=== PATIENT | female | born 1960 | race Caucasian/White ===

== ENCOUNTER 2016-08-08 06:26 | Day surgery (SDC) | payer BC, OTHER ==
[2016-08-06 09:48] VITALS: BMI 25.8
[2016-08-08 06:37] VITALS: TEMP 98
[2016-08-08] MEDS ORDERED: LIDOCAINE 1% 20 ML VIAL (10MG/ML) FOR IV START INTRADERMA ONE (06:48)
[2016-08-08] MEDS ORDERED: LACTATED RINGERS 1,000 ML IV ONE (07:09)
[2016-08-08] MEDS ORDERED: TRIAMCINOLONE ACETONIDE 40 MG/ML 1 ML VIAL ONE (07:12)
[2016-08-08] MEDS ORDERED: IOHEXOL 180 MG/ML 1 ML ML ONE (07:12)
[2016-08-08] MEDS ORDERED: fentaNYL (PF) 50 MCG/ML 2 ML AMP ONE (07:12)
[2016-08-08] MEDS ORDERED: MIDAZOLAM 2 MG/2 ML VIAL ONE (07:12)
[2016-08-08] MEDS ORDERED: LACTATED RINGERS 1,000 ML IV SCH (07:30)
[2016-08-08] MEDS ORDERED: IV FLUID CONTINUATION 1,000 ML IV ONE (07:45)
--- NOTE | 2016-08-08 07:49 | FL ---
Fluoroscopy INDICATION: Pain FINDINGS: Fluoroscopy time: 10 seconds. Images obtained: 3. IMPRESSIONS: 1. Documentation of fluoroscopy.
[2016-08-08 08:12] VITALS: BP 128/68; PULSE 61; RESP 18
--- NOTE | 2016-08-08 09:02 | P.PCN ---
Date of Procedure: 08/08/16 Surgeon: Jamal Richmond Pathology: none sent Condition: stable Disposition: PACU Description of Procedure: PREOP DIAGNOSIS: Lumbar postlaminectomy syndrome POSTOP DIAGNOSIS: Lumbar postlaminectomy syndrome PROCEDURE: Caudal epidural steroid injection with epidurolysis and epidurogram under fluoroscopic guidance ANESTHESIA: Local with 1% lidocaine; conscious sedation EBL: Minimal. PROCEDURE INDICATION: The patient with post-laminectomy syndrome with low back pain and radiculopathy radiating down in both legs, here for a caudal epidural steroid injection with epidurolysis. Patient does not use any blood thinning medications. PROCEDURE DESCRIPTION: The patient was seen and identified in the preoperative area. Risks, benefits, complications, and alternatives were discussed with the patient including but not limited to bleeding, infection, nerve damage, incomplete pain relief, and allergic reactions to medications. The patient agreed to proceed with the procedure and signed the consent after all questions were answered. IV was started, and vital signs were stable. Patient was taken to the OR and time out was completed to verify proper patient , procedure, laterality of pain, and allergies. The patient was placed in the prone position on procedure table and a pillow was placed under the abdomen to reduce lumbar lordosis. The lumbosacral area was prepped and draped in the usual sterile fashion. Critical pause was taken. Vital signs were closely monitored during the procedure. Fluoroscopic camera was placed in the lateral view and the anterior-posterior plates of the sacrum were identified with infiltration of the area overlying the sacral hiatus with 1% lidocaine .A 16 gauge RK epidural needle was used to advance through the sacral hiatus into the caudal epidural space. Omnipaque 300 dye 2cc was injected and the position of the needle was verified to be in the midline. A Racz catheter was introduced into the epidural space and was advanced towards the L5-S1 interspace under direct fluoroscopic guidance. Multiple passes were made with the catheter for lysis of epidural adhesions. Kenalog 80mg with 3ml of preservative free Lidocaine 1% and 7 ml of preservative free normal saline was injected slowly. Additional spread was seen to L3 under fluoroscopy. The needle and the catheter were withdrawn intact. EPIDUROGRAM: Omnipaque 300 dye 2 ml was injected with spread of the dye into the caudal epidural space and with spread cutoff at L5 prior to epidurolysis. Post epidurolysis dye 2 ml was injected and spread was seen to bottom of L3 as noted. There was further spread of the solution together with the dye to this level as well. COMPLICATIONS: None. DISPOSITION / PLANS: The patient was placed in a supine position and transferred to the recovery area in a stable condition for observation and was discharged from the recovery room after meeting discharge criteria. Home discharge instructions given to the patient by the staff. The patient was reexamined prior to discharge. The patient will schedule a follow up procedure in 8 weeks. Of note, two months of prescriptions were given to the patient.
--- NOTE | 2016-08-11 04:43 | CDI ---
Dear Dr. Richmond, Per your procedure note, Conscious Sedation is documented. The Pain Prodecure Record, however, has MAC checked off under Antesthesia Plan. This is conflicting documentation that need clarification for proper reporting purposes. Please clarify if the anesthesia provided Shalini Valentine was MAC (Monitored Anesthesia Care) or Conscious/Moderate Sedation. Please document this clarification on an addendum to the procedure note. Thank you for your time, Meri Pena,[facility] Outpatient Drencher Roger nelson [employer] [email or web address]
== END 2016-08-08 08:42 | disposition home or self-care (01) ==
LOC: ORPAIN 06:26
PROVIDERS: ATTEND Anesthesiology
DX: M96.1 Postlaminectomy syndrome, not elsewhere classified (principal); G96.12 Meningeal adhesions (cerebral) (spinal); M54.16 Radiculopathy, lumbar region; Z79.891 Long term (current) use of opiate analgesic; Z79.899 Other long term (current) drug therapy; Z88.5 Allergy status to narcotic agent
CPT/HCPCS: 99152; 62264; J2250; J3301; Q9965; J3010

== ENCOUNTER 2016-10-03 06:23 | Day surgery (SDC) | payer BC, OTHER ==
[2016-10-02 08:35] VITALS: BMI 25.8
[2016-10-03 07:11] VITALS: RESP 18; TEMP 976
[2016-10-03] MEDS: LACTATED RINGERS 1,000 ML IV SCH ×2 (07:19→07:26)
[2016-10-03] MEDS ORDERED: LIDOCAINE 1% 20 ML VIAL (10MG/ML) FOR IV START INTRADERMA ONE (07:19)
[2016-10-03] MEDS ORDERED: MIDAZOLAM 2 MG/2 ML VIAL ONE (07:27)
[2016-10-03] MEDS ORDERED: TRIAMCINOLONE ACETONIDE 40 MG/ML 1 ML VIAL ONE (07:27)
[2016-10-03] MEDS ORDERED: IOHEXOL 180 MG/ML 1 ML ML ONE (07:27)
[2016-10-03] MEDS ORDERED: fentaNYL (PF) 50 MCG/ML 2 ML AMP ONE (07:27)
[2016-10-03] MEDS ORDERED: IV FLUID CONTINUATION 850 ML IV ONE (07:54)
[2016-10-03 08:15] VITALS: BP 109/82; PULSE 76
--- NOTE | 2016-10-03 08:57 | FL ---
Fluoroscopy INDICATION: Pain FINDINGS: Fluoroscopy time: 9 seconds. Images obtained: 4. IMPRESSIONS: 1. Documentation of fluoroscopy.
--- NOTE | 2016-10-03 13:22 | P.PCN ---
Date of Procedure: 10/03/16 Procedure(s) Performed: PREOP DIAGNOSIS: 1- Lumbar postlaminectomy syndrome POSTOP DIAGNOSIS:1- Lumbar postlaminectomy syndrome PROCEDURE: Caudal epidural steroid injection with epidurolysis and epidurogram under fluoroscopic guidance ANESTHESIA: Local with 1% lidocaine 3 ml ; IV sedation with Versed 3 mg and fentanyl 150 g EBL: Minimal. PROCEDURE INDICATION: The patient with post-laminectomy syndrome with low back pain and radiculopathy radiating down in both legs, here for a caudal epidural steroid injection with epidurolysis. PROCEDURE DESCRIPTION: The patient was seen and identified in the preoperative area. Risks, benefits, complications, and alternatives were discussed with the patient. The patient agreed to proceed with the procedure and signed the consent. IV was started, and vital signs were stable. Patient was taken to the OR and time out was completed. The patient was placed in the prone position on procedure table and a pillow was placed under the abdomen to reduce lumbar lordosis. The lumbosacral area was prepped and draped in the usual sterile fashion. Vital signs were closely monitored during the procedure. lateral view and the anterior-posterior plates of the sacrum were identified with infiltration of the area overlying the sacral hiatus with 1% lidocaine .A 17 gauge RK epidural needle was used to advance through the sacral hiatus into the caudal epidural space. Omnipaque 180 dye. 2cc was injected and the position of the needle was verified to be in the midline. A Racz catheter was introduced into the epidural space and was advanced towards the L5-S1 interspace under direct fluoroscopic guidance. Multiple passes were made with the catheter for lysis of epidural adhesions. Kenalog 80 mg with 3ml of preservative free Lidocaine 1% and 5 ml of preservative free normal saline was injected slowly. Additional spread was seen to L4 under fluoroscopy. The needle and the catheter were withdrawn intact. EPIDUROGRAM: Omnipaque 180 mg dye 2 ml was injected with spread of the dye into the caudal epidural space and with spread cutoff at L5 prior to epidurolysis. Post epidurolysis dye 2 ml was injected and spread was seen to L3- 4.There was further spread of the solution together with the dye above the L3 COMPLICATIONS: None. DISPOSITION / PLANS: The patient was placed in a supine position and transferred to the recovery area in a stable condition for observation and was discharged from the recovery room after meeting discharge criteria. Home discharge instructions given to the patient by the staff. The patient was reexamined prior to discharge. The patient will schedule a follow up in the clinic in 2-4 weeks.
== END 2016-10-03 08:35 | disposition home or self-care (01) ==
LOC: ORPAIN 06:23
PROVIDERS: ATTEND Specialist
DX: M96.1 Postlaminectomy syndrome, not elsewhere classified (principal); M54.10 Radiculopathy, site unspecified; Z78.0 Asymptomatic menopausal state; Z88.5 Allergy status to narcotic agent
CPT/HCPCS: 62264; 99152; J2250; J3301; Q9965; J3010

== ENCOUNTER → 2016-11-27 | Outpatient (CLI) | payer BC, OTHER ==
[2016-11-27 12:56] VITALS: BP 133/85; PULSE 84; RESP 16; TEMP 97.4
--- NOTE | 2016-11-27 13:15 | P.PN ---
Subjective Principal diagnosis: This is follow-up visit for this patient with a history of severe and chronic low back pain secondary to lumbar failed back surgery syndrome, we did interventional pain management injection,, caudal epidural steroid injections with lysis of epidural adhesions, and lyn get good pain relief from it. patient currently on 1-Neurontin 300 mg 3 times a day 2-[place] 5/325 every 6 hours 3-Flexeril 10 mg daily at bedtime Patient denies any side effects of the medication, denies excessive drowsiness or sleepiness, denies suicidal ideation, and reports that the current pain medication is helping To control the pain and improve activity of daily living . Patient denies any motor or sensory deficit, denies change in bowel movement or urination, patient denies any fever or night sweats and patient here for follow-up visit and medication refill, she reported that currently she is having more pain in the low back area with radiation to the left lower extremity associated with numbness and tingling sensation Objective - Vital Signs Vital signs: Vital Signs Temp 97.4 F L 11/27/16 12:49 Pulse 84 11/27/16 12:49 Resp 16 11/27/16 12:49 BP 133/85 11/27/16 12:49 Pulse Ox Intake & Output 11/26/16 11/27/16 11/27/16 18:59 06:59 18:59 Weight 81.647 kg - Exam Physical Examinations : 1-Constitutiona : Cooperative , not in acute distress . 2-HEENT : nech ; supple , no Lymphadenopathy , normal thyroid size . eyes : no ptosis , no icterus, no photophobia . ENT : normal of hearing , normal oropharynx , no Thrush . 3- Respiratory : Chest clear to auscultations Bilaterally , no wheezing , no Rhonchi . 4- Cardiovascular : regular rate and rhythem , S1 , S2 , no S3 , no S4. 5- Gastrointestinal : abdomen soft no tenderness , bowel sounds positive all four quadrents , no organomegally . 6- Genitourinary : Defferred . 7- neurologic : Cranial nerve II to XII intact , no focal neurological deffecit . 8-psychatric : alert , oriented X 3 , appropriate affect , intact judgment and insight . 9-Lymphatic : no Lymphadenopathy . 10- musculoskeltal : , Lumber spine = normal moter stegnth lower extremities ,thigh and legs .5/5 deep tendon reflexes : normal Knee Jerk , normal ankle Jerk . positive lumber facet Loading Test strait leg raising test positive at 30 degree , RT ,LT , Fabere test positive RT and positive LT . Assessment and Plan Plan: Assessment and plan = - Chronic low back pain secondary to , failed back surgery syndrome lumbar a -chronic and current use of high-risk medication (Opioids). -Patient denies any side effect of the medication, and the current medication helped the patient to control the pain and improve activity of daily living The patient was counseled about risk of opioid use, psychological risk associated with opioids discussed with the patient, body mass index and exercise. Patient signed the narcotic agreement , and was orally counseled not to overuse , abuse , divert, or sell medications ,and take them as prescribed only , and the patient was counseled against driving and while you are using the narcotic medication also not to use alcohol or any illicit drugs and the patient verbalized understanding that lack of compliance and could result in failure to renew narcotics prescriptions and possible discharge from the clinic - diagnoses, prognosis, and treatment options including but not limited to physical therapy, surgical interventions, interventional therapies and medication management including narcotics and adjuvant medication were discussed with the patient and all questions answered to the patient's satisfaction. -medication refile =1-B[place]e 5/325 every 6 hours dispense 120 with one refill 2-Neurontin 300 mg every 8 hours dispense 90 with 1 refill 3- Flexeril 10 mg daily at bedtime dispense 30 with one refill -procedure= problem epidural steroid injection with lysis of epidural adhesions under fluoroscopy guidance Time with Patient: Less than 30
== END ==
LOC: PNWHC3 12:40
PROVIDERS: ATTEND Specialist
DX: M54.5 Low back pain (principal); G89.29 Other chronic pain; Z79.891 Long term (current) use of opiate analgesic
CPT/HCPCS: 99211

== ENCOUNTER 2017-01-01 06:34 | Day surgery (SDC) | payer BC, OTHER ==
[2016-12-27 13:07] VITALS: BMI 25.8
[2017-01-01 07:00] VITALS: TEMP 97.6
[2017-01-01] MEDS ORDERED: LIDOCAINE 1% 20 ML VIAL (10MG/ML) FOR IV START INTRADERMA ONE (07:01)
[2017-01-01] MEDS ORDERED: LACTATED RINGERS 1,000 ML IV ONE (07:02)
[2017-01-01] MEDS ORDERED: IV FLUID CONTINUATION 1,000 ML IV ONE (07:42)
[2017-01-01 07:45] VITALS: RESP 16
[2017-01-01] MEDS ORDERED: LACTATED RINGERS 1,000 ML IV SCH (07:45)
[2017-01-01 08:00] VITALS: BP 129/78; PULSE 64
--- NOTE | 2017-01-01 08:09 | FL ---
Fluoroscopy HISTORY: Pain 3 seconds fluoroscopy time supplied to the referring clinician. 3 intraoperative C-arm images docume nt the procedure. See dictated report from anesthesia.
--- NOTE | 2017-01-01 10:16 | P.PCN ---
Date of Procedure: 01/01/17 Preoperative Diagnosis: Postoperative Diagnosis: Procedure(s) Performed: Implants: Surgeon: Jamal Richmond Pathology: none sent Condition: stable Disposition: PACU Indications for Procedure: Operative Findings: Description of Procedure: PREOP DIAGNOSIS: Lumbar postlaminectomy syndrome POSTOP DIAGNOSIS: Lumbar postlaminectomy syndrome PROCEDURE: Caudal epidural steroid injection with epidurolysis and epidurogram under fluoroscopic guidance ANESTHESIA: Local with 1% lidocaine; conscious sedation EBL: Minimal. PROCEDURE INDICATION: The patient with post-laminectomy syndrome with low back pain and radiculopathy radiating down in both legs, here for a caudal epidural steroid injection with epidurolysis, #3 in series. Patient does not use any blood thinning medications. PROCEDURE DESCRIPTION: The patient was seen and identified in the preoperative area. Risks, benefits, complications, and alternatives were discussed with the patient including but not limited to bleeding, infection, nerve damage, incomplete pain relief, and allergic reactions to medications. The patient agreed to proceed with the procedure and signed the consent after all questions were answered. IV was started, and vital signs were stable. Patient was taken to the OR and time out was completed to verify proper patient , procedure, laterality of pain, and allergies. The patient was placed in the prone position on procedure table and a pillow was placed under the abdomen to reduce lumbar lordosis. The lumbosacral area was prepped and draped in the usual sterile fashion. Critical pause was taken. Vital signs were closely monitored during the procedure. Fluoroscopic camera was placed in the lateral view and the anterior-posterior plates of the sacrum were identified with infiltration of the area overlying the sacral hiatus with 1% lidocaine .A 16 gauge RK epidural needle was used to advance through the sacral hiatus into the caudal epidural space. Omnipaque 300 dye 2cc was injected and the position of the needle was verified to be in the midline. A Racz catheter was introduced into the epidural space and was advanced towards the L5-S1 interspace under direct fluoroscopic guidance. Multiple passes were made with the catheter for lysis of epidural adhesions. Decadron 20 mg with 3ml of preservative free Lidocaine 1% and 7 ml of preservative free normal saline was injected slowly. Additional spread was seen to L4 under fluoroscopy. The needle and the catheter were withdrawn intact. EPIDUROGRAM: Omnipaque 300 dye 2 ml was injected with spread of the dye into the caudal epidural space and with spread cutoff at L5 prior to epidurolysis. Post epidurolysis dye 2 ml was injected and spread was seen to L4. There was further spread of the solution together with the dye above the L4 level. COMPLICATIONS: None. DISPOSITION / PLANS: The patient was placed in a supine position and transferred to the recovery area in a stable condition for observation and was discharged from the recovery room after meeting discharge criteria. Home discharge instructions given to the patient by the staff. The patient was reexamined prior to discharge. The patient will schedule a follow up in the clinic in 2-4 weeks as this was her third caudal SRAVAN with ZAIDA.
== END 2017-01-01 08:18 | disposition home or self-care (01) ==
LOC: ORPAIN 06:34
PROVIDERS: ATTEND Anesthesiology
DX: M96.1 Postlaminectomy syndrome, not elsewhere classified (principal); Z88.5 Allergy status to narcotic agent; Z79.891 Long term (current) use of opiate analgesic; Z79.899 Other long term (current) drug therapy
CPT/HCPCS: 62264; 99152; J2250; J1100; Q9965; J3010; C1894

== ENCOUNTER → 2017-01-22 | Outpatient (CLI) | payer BC, OTHER ==
[2017-01-22 13:25] VITALS: BP 142/86; PULSE 90; RESP 18; TEMP 98.3
--- NOTE | 2017-01-22 13:49 | P.PN ---
Progress Note - Text This is a 56-year-old female with history of failed back surgery syndrome. The patient had one back surgery in 2012 and says that she's been having lower back pain with radiation to the left lower extremity with numbness and tingling in no specific radicular distribution. The patient denies any bowel or bladder dysfunction or any weakness in the lower extremities. Her pain has been well- controlled with a combination of caudal epidural steroid injection with lysis of adhesions and [place] 5 mg 3 times a day plus Neurontin. The patient usually gets good relief of her pain from caudal epidurals with loss of adhesion I think we can schedule her for one of these procedures 2 months from now the patient can cancel the procedure if her pain is okay by that time. The patient is alert oriented 3 in no apparent distress she does not show any signs of oversedation or any drug-seeking behavior. She denies any suicidal or homicidal ideation.
== END | disposition home or self-care (01) ==
LOC: PNWHC3 13:01
PROVIDERS: ATTEND Anesthesiology
DX: M54.5 Low back pain (principal); R20.0 Anesthesia of skin; R20.2 Paresthesia of skin
CPT/HCPCS: 99211

== ENCOUNTER → 2017-04-07 | Outpatient (CLI) | payer BC, OTHER ==
[2017-04-07 12:06] VITALS: BP 155/93; PULSE 81; RESP 18
--- NOTE | 2017-04-07 12:25 | P.PN ---
Progress Note - Text Progress Note Date: 04/07/17 Patient returns for followup for chronic back pain with radiation to legs. Patient previously had RFAs with good relief. Patient continues on [place]/ Neurontin/Flexeril medications for pain with good relief. Patient denies adverse drug effects from medications. Today, pt denies new-onset weakness, bowel/bladder incontinence, or any other signs or symptoms of cauda equina syndrome. There are no signs of acute intoxication, and no indications of medication diversion or overuse. In addition to above, 13-point review of systems is also negative for chest pain , shortness of breath, changes in vision, changes in hearing, new onset weakness , abdominal pain, diarrhea, extreme fatigue, malaise, fever, skin changes, homicidal or suicidal ideation, or bowel or bladder incontinence. Vital Signs: Reviewed in EMR Gen: WDWN, AAOx3, NAD HEENT: NCAT, EOMI, hearing grossly normal Pulm: resp unlabored Abd: soft, NT, ND Neck: supple, trachea midline ROM in flexion lumbar spine: reduced ROM in extension lumbar spine: reduced Lumbar paravertebral tenderness: + Facet loading: + L side > R side SI joint tenderness: + L side Colby's test: neg Straight leg raise: neg Neuro: CN II-XII grossly intact, muscle strength lower extremities PRESERVED Imaging: Reviewed in EMR Assessment: 1. lumbar spondylosis 2. chronic pain syndrome 3. SIJ dysfunction Plan: 1. Explanation: Opioid and psychological risk scores were reviewed. Diagnoses , prognoses, and multiple treatment options including but not limited to physical therapy, interventional therapies, adjuvant medical therapies, narcotic medication therapies, and surgery were discussed with the patient and all questions were answered to the patient's satisfaction. 2. Opioid agreement: Patient has previously signed narcotic agreement, and was orally counseled to not overuse, abuse, divert, or cell medications, and to take them as prescribed by only 1 healthcare provider. The patient was also counseled to store opioid medications in a safe and preferably locked location. Patient was also counseled against driving or operating heavy equipment while using narcotic medications and also to not use alcohol or any illicit or recreational drugs. The patient verbalized understanding that lack of compliance with any of the above and likely result in failure to renew narcotic prescriptions, possible discharge from the clinic, and possible legal ramifications thereafter if indicated. 3. Counseling: The patient was counseled extensively on BODY MASS INDEX, EXERCISE. Specifically, the patient was instructed regarding the importance of weight control, and exercise in the context of both chronic pain and overall health. 4. Procedures: none for now 5. Consultations: None 6. Investigations: None 7. Medications: [place] 5/325 #90 with one refill, increased Neurontin to 400 mg #90 with one refill, refilled Flexeril 8. Disposition: f/u for re-eval in 8 weeks PQRS measures: 1-Patient's medications are documented in the chart. 2-Tobacco use is negative 3-Patient has not had a pneumococcal vaccine. 4-Advanced care planning discussed, patient unable to give. 5-Opioid contract signed with the patient. 6-Pain positive, follow-up visit or procedure scheduled 7-Patient's blood pressure measured and documented, and patient will follow up with the primary care due to hypertension. 8-Patient's weight was measured, and body mass index ABOVE the normal limits, and counseling was done. Patient instructed to follow up with PCP. 9-Patient WAS NOT identified as an unhealthy alcohol user.
[2017-04-08 15:07] LABS: Mis test requested (Non-blood) HEROIN
== END ==
LOC: PNWHC3 11:35
PROVIDERS: ATTEND Anesthesiology
DX: M47.816 Spondylosis without myelopathy or radiculopathy, lumbar region (principal); M53.3 Sacrococcygeal disorders, not elsewhere classified; Z79.899 Other long term (current) drug therapy; Z79.891 Long term (current) use of opiate analgesic
CPT/HCPCS: 80307; 80356; 80364; 99211

== ENCOUNTER → 2017-06-25 | Outpatient (CLI) | payer BC, OTHER ==
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
[2017-06-25 12:57] LABS: Appearance,Urine Cloudy (Clear); Bilirubin,Urine Negative (Negative); Blood,Urine Negative (Negative); Calcium Oxalate Crystals,Urine Many /hpf; Color,Urine Yellow; Glucose,Urine (UA) Negative (Negative); Ketones,Urine Negative (Negative); Leukocyte Esterase,Urine Negative (Negative); Mucus,Urine Rare /hpf; Nitrite,Urine Negative (Negative); PH, Urine 5.5 (5.0-8.0); Protein,Urine Negative (Negative); RBC,Urine 10 /hpf (0-5); Specific Gravity,Urine 1.021 (1.001-1.035); Squamous Epithelial Cell,Urine <1 /hpf (0-4); Urobilinogen,Urine <2.0 mg/dL (<2.0); WBC,Urine 2 /hpf (0-5)
== END | disposition home or self-care (01) ==
LOC: WWCWWP 07:52
PROVIDERS: ATTEND Obstetrics & Gynecology
DX: N81.10 Cystocele, unspecified (principal); Z98.51 Tubal ligation status
CPT/HCPCS: 81001; 87086

== ENCOUNTER → 2017-07-07 | Outpatient (CLI) | payer BC ==
[2017-07-07 16:20] LABS: Appearance,Urine Clear (Clear); Bacteria,Urine Rare /hpf; Bilirubin,Urine Negative (Negative); Blood,Urine Negative (Negative); Budding Yeast,Urine Few /hpf; Color,Urine Yellow; Glucose,Urine (UA) Negative (Negative); Ketones,Urine Negative (Negative); Leukocyte Esterase,Urine Small (Negative); Mucus,Urine Rare /hpf; Nitrite,Urine Negative (Negative); PH, Urine 6.5 (5.0-8.0); Protein,Urine Negative (Negative); RBC,Urine 1 /hpf (0-5); Squamous Epithelial Cell,Urine <1 /hpf (0-4); Urobilinogen,Urine <2.0 mg/dL (<2.0); WBC,Urine 4 /hpf (0-5)
--- NOTE | 2017-07-09 14:39 | MM ---
Reason for exam: screening (asymptomatic). Last mammogram was performed 2 years and 7 months ago. History: Patient has history of other cancer at age 53. Physical Findings: A clinical breast exam by your physician is recommended on an annual basis and results should be correlated with mammographic findings. MG Screening Mammo w CAD Bilateral CC and MLO view(s) were taken. Prior study comparison: November 22, 2014, bilateral MG screening mammo w CAD. September 22, 2012, mammogram, performed at [facility]. There are scattered fibroglandular densities. 6mm focal asymmetry upper outer quadrant at posterior depth on the right 9.5cm from nipple. ASSESSMENT: Incomplete: need additional imaging evaluation, BI-RAD 0 RECOMMENDATION: Special view mammogram of the right breast. If lesion persists on supplemental views, image directed ultrasound is recommended. [facility] will attempt to contact patient to return for supplemental views and ultrasound if indicated.
== END | disposition home or self-care (01) ==
LOC: RADMAMWWP 15:05
PROVIDERS: ATTEND Internal Medicine
DX: Z12.31 Encounter for screening mammogram for malignant neoplasm of breast (principal); R31.29 Other microscopic hematuria
CPT/HCPCS: 77067; 81001

== ENCOUNTER → 2017-07-15 | Outpatient (CLI) | payer BC ==
--- NOTE | 2017-07-16 07:30 | MM ---
Reason for exam: additional evaluation requested from abnormal screening. Last mammogram was performed less than 1 month ago. History: Patient has history of other cancer at age 53. Physical Findings: Nurse Summary: 0.5cm nodule in the right breast at 12 o'clock (nurse landen). MG Work Up Mamm w CAD RT Spot compression CC, spot compression MLO, and LM view(s) were taken of the right breast. Prior study comparison: July 07, 2017, bilateral MG screening mammo w CAD. November 22, 2014, bilateral MG screening mammo w CAD. There are scattered fibroglandular densities. No suspicious abnormality. The previously seen focal asymmetry in the upper outer quadrant appears similar to priors retrospectively and appears as fibroglandular tissue/overlap. (Ultrasound today right breast palpable) These results were verbally communicated with the patient and result sheet given to the patient on 07/15/17. ASSESSMENT: Negative, BI-RAD 1 RECOMMENDATION: Return to routine screening mammogram schedule for both breasts.
--- NOTE | 2017-07-16 07:32 | USB ---
Reason for exam: additional evaluation requested from abnormal screening. History: Patient has history of other cancer at age 53. US Breast Workup Limited RT Right breast ultrasound demonstrates no cystic or solid lesion seen. No suspicious sonographic finding. These results were verbally communicated with the patient and result sheet given to the patient on 07/15/17. ASSESSMENT: Negative, BI-RAD 1 RECOMMENDATION: Return to routine screening mammogram schedule for both breasts.
== END | disposition home or self-care (01) ==
LOC: RADMAMWWP 15:23
PROVIDERS: ATTEND Internal Medicine
DX: R92.8 Other abnormal and inconclusive findings on diagnostic imaging of breast (principal)
CPT/HCPCS: 77065

== ENCOUNTER 2017-07-17 08:24 | Day surgery (SDC) | payer BC, OTHER ==
[2017-07-11 08:32] VITALS: BMI 25.8
[2017-07-17 08:42] VITALS: RESP 16; TEMP 97.8
[2017-07-17] MEDS ORDERED: LACTATED RINGERS 1,000 ML IV ONE (08:42)
[2017-07-17] MEDS ORDERED: LIDOCAINE 1% 20 ML VIAL (10MG/ML) FOR IV START INTRADERMA ONE (08:42)
[2017-07-17] MEDS ORDERED: methylPREDNISolone ACETATE 40 MG/ML 1 ML VIAL ONE (09:20)
[2017-07-17] MEDS ORDERED: IV FLUID CONTINUATION 1,000 ML IV ONE (09:50)
[2017-07-17 10:05] VITALS: BP 130/69; PULSE 91
--- NOTE | 2017-07-17 10:17 | FL ---
EXAMINATION TYPE: FL guided pain mgmt statistic DATE OF EXAM: 07/17/2017 HISTORY: Pain 8 sec fluoro, 4 images scanned, Dr. Richmond
--- NOTE | 2017-07-17 11:03 | P.PCN ---
Date of Procedure: 07/17/17 Surgeon: Jamal Richmond Pathology: none sent Condition: stable Disposition: PACU Description of Procedure: PREOP DIAGNOSIS: Lumbar postlaminectomy syndrome POSTOP DIAGNOSIS: Lumbar postlaminectomy syndrome PROCEDURE: Caudal epidural steroid injection with epidurolysis and epidurogram under fluoroscopic guidance ANESTHESIA: Local with 1% lidocaine; conscious sedation EBL: Minimal. PROCEDURE INDICATION: The patient with post-laminectomy syndrome with low back pain and radiculopathy radiating down in both legs, here for a caudal epidural steroid injection with epidurolysis after relief from these procedures in the past. Patient does not use any blood thinning medications. PROCEDURE DESCRIPTION: The patient was seen and identified in the preoperative area. Risks, benefits, complications, and alternatives were discussed with the patient including but not limited to bleeding, infection, nerve damage, incomplete pain relief, and allergic reactions to medications. The patient agreed to proceed with the procedure and signed the consent after all questions were answered. IV was started, and vital signs were stable. Patient was taken to the OR and time out was completed to verify proper patient , procedure, laterality of pain, and allergies. The patient was placed in the prone position on procedure table and a pillow was placed under the abdomen to reduce lumbar lordosis. The lumbosacral area was prepped and draped in the usual sterile fashion. Critical pause was taken. Vital signs were closely monitored during the procedure. Fluoroscopic camera was placed in the lateral view and the anterior-posterior plates of the sacrum were identified with infiltration of the area overlying the sacral hiatus with 1% lidocaine .A 16 gauge RK epidural needle was used to advance through the sacral hiatus into the caudal epidural space. Omnipaque 300 dye 2cc was injected and the position of the needle was verified to be in the midline. A Racz catheter was introduced into the epidural space and was advanced towards the L5-S1 interspace under direct fluoroscopic guidance. Multiple passes were made with the catheter for lysis of epidural adhesions. Kenalog 80mg with 3ml of preservative free Lidocaine 1% and 7 ml of preservative free normal saline was injected slowly. Additional spread was seen to L2 under fluoroscopy. The needle and the catheter were withdrawn intact. EPIDUROGRAM: Omnipaque 300 dye 2 ml was injected with spread of the dye into the caudal epidural space and with spread cutoff at L4 prior to epidurolysis. Post epidurolysis dye 2 ml was injected and spread was seen to bottom of L2 as noted. There was further spread of the solution together with the dye to this level as well. COMPLICATIONS: None. DISPOSITION / PLANS: The patient was placed in a supine position and transferred to the recovery area in a stable condition for observation and was discharged from the recovery room after meeting discharge criteria. Home discharge instructions given to the patient by the staff. The patient was reexamined prior to discharge. The patient will follow up in clinic in 2-3 weeks.
== END 2017-07-17 10:20 | disposition home or self-care (01) ==
LOC: ORPAIN 08:24
PROVIDERS: ATTEND Anesthesiology
DX: M96.1 Postlaminectomy syndrome, not elsewhere classified (principal); Z88.5 Allergy status to narcotic agent
CPT/HCPCS: 62264; J2250; J1030; Q9965; J3010; C1894; 99152

== ENCOUNTER → 2017-07-28 | Outpatient (CLI) | payer BC, OTHER ==
[2017-07-28 12:31] VITALS: BP 138/84; PULSE 95; RESP 16; TEMP 97.9
--- NOTE | 2017-07-28 12:50 | P.PN ---
Subjective Progress Note Date: 07/28/17 This is follow-up visit for this patient with a history of severe and chronic low back pain secondary to lumbar postlaminectomy pain syndrome, we have done caudal epidural steroid injections, Patients report that she had excellent relief after the caudal epidural steroid injections and she is currently on Neurontin 400 mg 3 times a day, Flexeril 10 mg daily at bedtime when necessary, [place] 5/325 every 8 hours Patient denies any side effects of the medication, denies excessive drowsiness or sleepiness, denies suicidal ideation, and reports that the current pain medication is helping To control the pain ,and improve activity of daily living Patient denies any motor or sensory deficit , patient denies any fever or night sweats, denies any change in the bowel movements or urination Assessment and plan = Chronic low back pain secondary to lumbar postlaminectomy pain syndrome , pain improved significantly after caudal epidural steroid injections chronic and current use of high-risk medication (Opioids). The patient was counseled about risk of opioid use, psychological risk associated with opioids and was orally counseled to not overuse , divert,or sell dictations to take medications as prescribed only , and to restore medication in safe location , and the patient counseled against driving while using narcotic medications, and also not to use alcohol or any illicit recreational drugs, the patient's verbalized understanding that the lack of compliance will result in failure to renew narcotic prescription and possible discharge from the clinic - diagnoses, prognosis, and treatment options including but not limited to physical therapy, surgical interventions, interventional therapies , and medication management including narcotics and adjuvant medication were discussed with the patient and all the questions answered prescription refill for Neurontin 400 mg 3 times a day dispense 90 with 5 refill, Flexeril 10 mg daily at bedtime dispensed 30 with 5 refills, [place] 5/ 325 every 8 hours when necessary dispense 90 with 1 refill ,she will follow up with the pain clinic in 2 months Objective - Vital Signs Vital signs: Vital Signs Temp 97.9 F 07/28/17 12:26 Pulse 95 07/28/17 12:26 Resp 16 07/28/17 12:26 BP 138/84 07/28/17 12:26 Pulse Ox Intake & Output 07/27/17 07/28/17 07/28/17 18:59 06:59 18:59 Weight 81.647 kg
== END | disposition home or self-care (01) ==
LOC: PNWHC3 12:10
PROVIDERS: ATTEND Specialist
DX: G89.29 Other chronic pain (principal); M54.5 Low back pain; M96.1 Postlaminectomy syndrome, not elsewhere classified; Z79.52 Long term (current) use of systemic steroids; Z79.899 Other long term (current) drug therapy; Z79.891 Long term (current) use of opiate analgesic; Z76.0 Encounter for issue of repeat prescription
CPT/HCPCS: 99211

== ENCOUNTER → 2017-09-17 | Outpatient (CLI) | payer BC, OTHER ==
[2017-09-17 12:13] VITALS: BP 158/81; PULSE 88; RESP 18; TEMP 98.2
--- NOTE | 2017-09-17 13:00 | P.PN ---
Subjective Progress Note Date: 09/17/17 This is follow-up visit for this patient with a history of severe and chronic low back pain secondary to lumbar postlaminectomy pain syndrome, we have done, epidural lysis of epidural adhesions , patient currently on [place] 5/325 every 6 hours when necessary. , Neurontin 400 3 times a day , Flexeril 10 mg when necessary Patient denies any side effects of the medication, denies excessive drowsiness or sleepiness, denies suicidal ideation, and reports that the current pain medication is NOT helping To control the pain and improve activity of daily living . Patient denies any motor or sensory deficit, denies change in bowel movement or urination, patient denies any fever or night sweats and patient here for follow-up visit and medication refill Objective - Vital Signs Vital signs: Vital Signs Temp 98.2 F 09/17/17 12:03 Pulse 88 09/17/17 12:03 Resp 18 09/17/17 12:03 BP 158/81 09/17/17 12:03 Pulse Ox Intake & Output 09/16/17 09/17/17 09/17/17 18:59 06:59 18:59 Weight 81.647 kg - Exam Physical Examinations : 1-Constitutiona : Cooperative , not in acute distress . 2-HEENT : nech ; supple , no Lymphadenopathy , normal thyroid size . eyes : no ptosis , no icterus, no photophobia . ENT : normal of hearing , normal oropharynx , no Thrush . 3- Respiratory : Chest clear to auscultations Bilaterally , no wheezing , no Rhonchi . 4- Cardiovascular : regular rate and rhythem , S1 , S2 , no S3 , no S4. 5- Gastrointestinal : abdomen soft no tenderness , bowel sounds positive all four quadrents , no organomegally . 6- Genitourinary : Defferred . 7- neurologic : Cranial nerve II to XII intact , no focal neurological deffecit . 8-psychatric : alert , oriented X 3 , appropriate affect , intact judgment and insight . 9-Lymphatic : no Lymphadenopathy . 10- musculoskeltal : . , Lumber spine = normal moter stegnth lower extremities ,thigh and legs .5/5 deep tendon reflexes : normal Knee Jerk , normal ankle Jerk . 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 and current use of high-risk medication (opioids) Patient denies any side effects of the current pain medication and the current treatment/medication ,and the patient to do activity of daily living , Diagnoses, prognosis, treatment options, including but not limited to physical therapy, medication management, interventional therapies, and surgery, were discussed with the patient All the questions answered Patient signed the narcotic agreement, and he was orally counseled, not to overuse, not to abuse, not to Divert , not tp sell pain medication, and to take it as prescribed only, Patient was counseled not to drive or operate heavy equipment while using narcotic medication, and advised not to use alcohol or any Illicit drugs while using the narcotis, the patient's verbalized understanding that lack of compliance with any of the above instructions and will likely to cause discharge from the pain service, not to renew his narcotic prescriptions Medication managements= patient given e prescription refills for [place] 5/ 325 one tablet by mouth every 6 hours dispensed 90 with 1 refill, and she had a refill on Neurontin 400 mg 3 times a day dispense 90, and Flexeril 10 mg when necessary dispense 30 with refills she will be scheduled to have repeat caudal epidural steroid injection with lysis of epidural adhesions under fluoroscopy guidance , Time with Patient: Less than 30
== END | disposition home or self-care (01) ==
LOC: PNWHC3 11:38
PROVIDERS: ATTEND Specialist
DX: G89.29 Other chronic pain (principal); M54.5 Low back pain; M96.1 Postlaminectomy syndrome, not elsewhere classified; Z79.899 Other long term (current) drug therapy; Z79.891 Long term (current) use of opiate analgesic
CPT/HCPCS: 99211

== ENCOUNTER 2017-10-30 09:22 | Day surgery (SDC) | payer BC, OTHER ==
[2017-10-28 14:30] VITALS: BMI 25.8
[~2017-10-30 09:22] MED LIST: LACTATED RINGERS 1,000 ML IV SCH
[2017-10-30] MEDS ORDERED: LIDOCAINE 1% 20 ML VIAL (10MG/ML) FOR IV START INTRADERMA ONE (12:15)
[2017-10-30 12:28] VITALS: RESP 16; TEMP 98.1
--- NOTE | 2017-10-30 13:04 | P.PCN ---
Date of Procedure: 10/30/17 Procedure(s) Performed: PREOP DIAGNOSIS: 1- Lumbar postlaminectomy syndrome POSTOP DIAGNOSIS:1- Lumbar postlaminectomy syndrome PROCEDURE: Caudal epidural steroid injection with epidurolysis and epidurogram under fluoroscopic guidance ANESTHESIA: Local with 1% lidocaine 3 ml ,and moderate sedation, with Versed 2 mg and fentanyl 100 g EBL: Minimal. PROCEDURE INDICATION: The patient with post-laminectomy syndrome with low back pain and radiculopathy radiating down in both legs, here for a caudal epidural steroid injection with epidurolysis. PROCEDURE DESCRIPTION: The patient was seen and identified in the preoperative area. Risks, benefits, complications, and alternatives were discussed with the patient. The patient agreed to proceed with the procedure and signed the consent. IV was started, and vital signs were stable. Patient was taken to the OR and time out was completed. The patient was placed in the prone position on procedure table and a pillow was placed under the abdomen to reduce lumbar lordosis. The lumbosacral area was prepped and draped in the usual sterile fashion. Vital signs were closely monitored during the procedure. lateral view and the anterior-posterior plates of the sacrum were identified with infiltration of the area overlying the sacral hiatus with 1% lidocaine .A 17 gauge RK epidural needle was used to advance through the sacral hiatus into the caudal epidural space. Isoveu 200 mg dye. 2cc was injected and the position of the needle was verified to be in the midline. A Racz catheter was introduced into the epidural space and was advanced towards the L5- S1 interspace under direct fluoroscopic guidance. Multiple passes were made with the catheter for lysis of epidural adhesions. Kenalog 80 mg with 3ml of preservative free Lidocaine 1% and 5 ml of preservative free normal saline was injected slowly. Additional spread was seen to L4 under fluoroscopy. The needle and the catheter were withdrawn intact. EPIDUROGRAM: Omnipaque 180 mg dye 2 ml was injected with spread of the dye into the caudal epidural space and with spread cutoff at L5 prior to epidurolysis. Post epidurolysis dye 2 ml was injected and spread was seen to L3- 4.There was further spread of the solution together with the dye above the L3 COMPLICATIONS: None. DISPOSITION / PLANS: The patient was placed in a supine position and transferred to the recovery area in a stable condition for observation and was discharged from the recovery room after meeting discharge criteria. Home discharge instructions given to the patient by the staff. The patient was reexamined prior to discharge. The patient will schedule a follow up in the clinic in 2-4 weeks.
--- NOTE | 2017-10-30 13:19 | FL ---
Fluoroscopy INDICATION: Pain FINDINGS: Fluoroscopy time: 7 seconds. Images obtained: 3. IMPRESSIONS: 1. Documentation of fluoroscopy.
[2017-10-30] MEDS ORDERED: IV FLUID CONTINUATION 1,000 ML IV ONE (13:27)
[2017-10-30 13:30] VITALS: BP 138/66; PULSE 71
== END 2017-10-30 13:39 | disposition home or self-care (01) ==
LOC: ORPAIN 09:22
PROVIDERS: ATTEND Specialist
DX: M96.1 Postlaminectomy syndrome, not elsewhere classified (principal); M54.16 Radiculopathy, lumbar region; Z88.5 Allergy status to narcotic agent
CPT/HCPCS: 81025; 62264; J2250; J1030; J3010; Q9966; C1894

== ENCOUNTER → 2017-12-11 | Outpatient (CLI) | payer BC, OTHER ==
[2017-12-11 12:30] VITALS: BP 152/85; PULSE 92; RESP 16
--- NOTE | 2017-12-11 13:33 | P.PAINPG ---
Subjective Progress Note Date: 12/11/17 This is follow-up visit for this patient with a history of severe and chronic low back pain secondary to lumbar degenerative disc disease, lumbar postlaminectomy pain syndrome We have done an interventional pain procedure caudal epidural steroid injection with lysis of epidural adhesions, patient typically has excellent pain relief after each:caudal Epidural steroid injection, but she reported that after the last 2 procedure she had 0 benefit The patient currently on [employer] 5/325 every 6 hours when necessary, Neurontin 400 mg 3 times a day, Flexeril 10 mg when necessary Patient denies any side effect of the medication , patient denies any excessive drowsiness or sleepiness, patient denies any suicidal ideation, Patient reported that the current medication is helping to control the pain and improve the activity of daily livings, Patient denies any motor or sensory deficit, denies any change in the bowel movement or urination, patient denies any fever or night sweats. Patient here today for follow-up visit and medication refill Objective - Exam Physical Examinations : 1-Constitutiona : Cooperative , not in acute distress . 2-HEENT : nech ; supple , no Lymphadenopathy , normal thyroid size . eyes : no ptosis , no icterus , no photophobia . ENT : normal of hearing , normal oropharynx , no Thrush . 3- Respiratory : Chest clear to auscultations Bilaterally , no wheezing , no Rhonchi . 4- Cardiovascular : regular rate and rhythem , S1 , S2 , no S3 , no S4. 5- Gastrointestinal : abdomen soft no tenderness , bowel sounds , no organomegally . 6- Genitourinary : Defferred . 7- neurologic : Cranial nerve II to XII intact , no focal neurological deffecit . 8-psychatric : alert , oriented X 3 , appropriate affect , intact judgment and insight . 9-Lymphatic : no Lymphadenopathy . 10- musculoskeltal : , Lumber spine = normal moter stegnth lower extremities ,thigh and legs .5/5 deep tendon reflexes : normal Knee Jerk , normal ankle Jerk . lumber facet Loading Test positive strait leg raising test positive at 30 degree Right , positve at 30 degree Left Fabere test positive Right and positive Left Severe tenderness over the sacroiliac joint bilaterally left side more than the right side Assessment and Plan Plan: Assessment and plan= chronic low back pain secondary to lumbar degenerative disc disease , postlaminectomy pain syndrome lumbar area Patient had no benefit after the caudal epidural steroid injection with lysis of epidural adhesions x2 chronic and current use of high-risk medication (opioids) Patient denies any side effects of the current pain medication and the current treatment/medication helping the patient to do activity of daily living , Diagnoses, prognosis, treatment options, including but not limited to physical therapy, medication management, interventional therapies, and surgery, were discussed with the patient All the questions answered The narcotic consent was signed and patient agreed and understood the side effects and complications of opioid treatment. Patient signed the narcotic agreement, and was orally counseled, not to overuse, not to abuse, not to Divert , not tp sell pain medication, and to take it as prescribed only, Patient was counseled not to drive or operate heavy equipment while using narcotic medication, and advised not to use alcohol or any Illicit drugs while using the narcotis, the patient's verbalized understanding that lack of compliance with any of the above instructions, will likely to cause discharge from, the pain service, not to renew his narcotic prescriptions Medication managements= patient will be given prescription refills for [employer] 5/325 every 6 hours when necessary dispense 90 with 1 refill, Neurontin 400 mg 3 times a day dispense 90 with 1 refill, Patient will be scheduled to have repeat caudal epidural steroid injections with lysis of epidural adhesions, if she had no benefit from it then we will consider ordering MRI of the lumbar spine, I reviewed the MRI report which was done in 2013 showed patient had postsurgical changes , PQRS Measure Charge Sheet Measure #130: Documentation of Current Meds in Medical Chart: Patient's medications documented in chart Measure #226: Tobacco Use: Screen & Cessation Intervention: Pt not a tobacco user Measure #111: Pneumonia Vaccination: Pneumococcal vaccine NOT administered or previously given Measure #47: Advance Care Plan: Advance care planning discussed & documented, plan or surrogate given Measure #412: Opioid Treatment Agreement: Documented signed opioid trtmnt agreemnt min once during opioid trtmnt Measure #408: Opioid Therapy Follow-up Evaluation: Patient had f/u eval minimum every 3 months during opioid therapy Measure #317: Preventitive Care & Scrn High Bld Press & F/U: Pre-hypertensive or hypertensive BP documented, pt will f/u with PCP Measure #128: Body Mass Index (BMI) Screening & Follow-up: BMI documented ABOVE normal parameters - f/u documented Measure #131: Pain Assessment & Follow-up: Pain positive & plan documented, Follow-up scheduled Measure #431: Unhealthy Alcohol Use Preventative Care & Scrn: Patient not identified as an unhealthy alcohol user PQRS Narrative: Smoking Status Never smoker Narcotic Agreement Date Signed 07/28/17 Hx Alcohol Use (MH) No Home Medications: Ambulatory Orders Calcium/Magnesium/Zinc [Uwxwpwu-Cboxuaqtr-Rpkl Tablet] 1 tab PO DAILY 10/22/13 Cranberry Conc/C/Bacill Coag [Cranberry Tablet] 1 cap PO DAILY 10/22/13 Multivitamin [Multivitamins] 1 tab PO DAILY 10/22/13 Cholecalciferol [Vitamin D3] 1,000 unit PO DAILY 07/04/15 Cyclobenzaprine [Flexeril] 10 mg PO HS PRN #30 tab 07/28/17 Gabapentin [Neurontin] 400 mg PO TID #90 cap 12/11/17 HYDROcodone/APAP 5-325MG [[employer] 5-325] 1 tab PO Q8HR PRN #90 tab 12/11/17 Hydrocodone/Acetaminophen [[employer] 5-325] 1 tab PO Q8H PRN 30 Days #90 tab Controlled Substance Measures - Controlled Substance Measures Is patient prescribed a controlled substance at discharge?: Yes When asked, does pt state using other controlled substances?: No If prescribed controlled substance>3 days was MAPS reviewed?: Yes If Rx opioid, was Start Talking consent form obtained?: Yes If opioid is for acute pain is fill amount 7 days or less?: No Was information provided regarding opioid addiction?: Yes
== END | disposition home or self-care (01) ==
LOC: PNWHC3 11:46
PROVIDERS: ATTEND Specialist
DX: G89.29 Other chronic pain (principal); M54.5 Low back pain; M51.36 Other intervertebral disc degeneration, lumbar region; M96.1 Postlaminectomy syndrome, not elsewhere classified; Z79.891 Long term (current) use of opiate analgesic; Z79.899 Other long term (current) drug therapy
CPT/HCPCS: 99211

== ENCOUNTER 2017-12-30 08:34 | Day surgery (SDC) | payer BC, OTHER ==
[2017-12-25 09:58] VITALS: BMI 25.8
[2017-12-30 09:35] VITALS: TEMP 97.3
[2017-12-30] MEDS ORDERED: LIDOCAINE 1% 20 ML VIAL (10MG/ML) FOR IV START INTRADERMA ONE (09:41)
--- NOTE | 2017-12-30 11:24 | P.PCN ---
Date of Procedure: 12/30/17 Procedure(s) Performed: PREOP DIAGNOSIS: 1- Lumbar postlaminectomy syndrome POSTOP DIAGNOSIS:1- Lumbar postlaminectomy syndrome PROCEDURE: Caudal epidural steroid injection with epidurolysis and epidurogram under fluoroscopic guidance ANESTHESIA: Local with 1% lidocaine 3 ml ,and moderate sedation, with Versed 2 mg and fentanyl 200 g EBL: Minimal. PROCEDURE INDICATION: The patient with post-laminectomy syndrome with low back pain and radiculopathy radiating down in both legs, here for a caudal epidural steroid injection with epidurolysis. PROCEDURE DESCRIPTION: The patient was seen and identified in the preoperative area. Risks, benefits, complications, and alternatives were discussed with the patient. The patient agreed to proceed with the procedure and signed the consent. IV was started, and vital signs were stable. Patient was taken to the OR and time out was completed. The patient was placed in the prone position on procedure table and a pillow was placed under the abdomen to reduce lumbar lordosis. The lumbosacral area was prepped and draped in the usual sterile fashion. Vital signs were closely monitored during the procedure. lateral view and the anterior-posterior plates of the sacrum were identified with infiltration of the area overlying the sacral hiatus with 1% lidocaine .A 17 gauge RK epidural needle was used to advance through the sacral hiatus into the caudal epidural space. Omnipaque 180 dye. 2cc was injected and the position of the needle was verified to be in the midline. A Racz catheter was introduced into the epidural space and was advanced towards the L5-S1 interspace under direct fluoroscopic guidance. Multiple passes were made with the catheter for lysis of epidural adhesions. Depo-Medrol 40 mg with 3ml of preservative free Lidocaine 1% and 5 ml of preservative free normal saline was injected slowly. Additional spread was seen to L4 under fluoroscopy. The needle and the catheter were withdrawn intact. EPIDUROGRAM: Omnipaque 180 mg dye 2 ml was injected with spread of the dye into the caudal epidural space and with spread cutoff at L5 prior to epidurolysis. Post epidurolysis dye 2 ml was injected and spread was seen to L3- 4.There was further spread of the solution together with the dye above the L3 COMPLICATIONS: None. DISPOSITION / PLANS: The patient was placed in a supine position and transferred to the recovery area in a stable condition for observation and was discharged from the recovery room after meeting discharge criteria. Home discharge instructions given to the patient by the staff. The patient was reexamined prior to discharge. The patient will schedule a follow up in the clinic in 2-4 weeks.
[2017-12-30 11:56] VITALS: BP 123/69; PULSE 83; RESP 18
--- NOTE | 2017-12-30 12:03 | FL ---
EXAMINATION TYPE: FL guided pain mgmt statistic DATE OF EXAM: 12/30/2017 HISTORY: Pain 5sec fluoro time,3 images scanned
== END 2017-12-30 11:58 | disposition home or self-care (01) ==
LOC: ORPAIN 08:34
PROVIDERS: ATTEND Specialist
DX: M96.1 Postlaminectomy syndrome, not elsewhere classified (principal); Z78.0 Asymptomatic menopausal state; Z88.5 Allergy status to narcotic agent
CPT/HCPCS: 62264; J2250; J1030; J3010

== ENCOUNTER → 2018-02-05 | Outpatient (CLI) | payer BC, OTHER ==
[2018-02-05 12:12] VITALS: RESP 16
[2018-02-05 12:15] VITALS: BP 129/82; PULSE 79
--- NOTE | 2018-02-06 08:42 | P.PAINPG ---
Subjective Progress Note Date: 02/05/18 This is follow-up visit for this patient with a history of severe and chronic low back pain secondary to lumbar postlaminectomy pain syndrome We have done an interventional pain procedure caudal epidural steroid injection with lysis of adhesions, and she had significant improvement in her low back pain after the procedure The patient currently on Neurontin 400 mg 3 times a day, [place] 5/325 every 8 hours, Flexeril 10 mg daily at bedtime Patient denies any side effect of the medication , patient denies any excessive drowsiness or sleepiness, patient denies any suicidal ideation, Patient reported that the current medication is helping to control the pain and improve the activity of daily livings, Patient denies any motor or sensory deficit, denies any change in the bowel movement or urination, patient denies any fever or night sweats. Patient here today for follow-up visit and medication refill Objective - Vital Signs Vital signs: Vital Signs Temp Pulse 79 02/05/18 12:06 Resp 16 02/05/18 12:06 BP 129/82 02/05/18 12:06 Pulse Ox Intake & Output 02/05/18 02/06/18 02/06/18 18:59 06:59 18:59 Weight 81.647 kg - Exam Physical Examinations : 1-Constitutiona : Cooperative , not in acute distress . 2-HEENT : nech ; supple , no Lymphadenopathy , normal thyroid size . eyes : no ptosis , no icterus , no photophobia . ENT : normal of hearing , normal oropharynx , no Thrush . 3- Respiratory : Chest clear to auscultations Bilaterally , no wheezing , no Rhonchi . 4- Cardiovascular : regular rate and rhythem , S1 , S2 , no S3 , no S4. 5- Gastrointestinal : abdomen soft no tenderness , bowel sounds , no organomegally . 6- Genitourinary : Defferred . 7- neurologic : Cranial nerve II to XII intact , no focal neurological deffecit . 8-psychatric : alert , oriented X 3 , appropriate affect , intact judgment and insight . 9-Lymphatic : no Lymphadenopathy . 10- musculoskeltal : Lumber spine moter stegnth lower extremities ,thigh and legs 5/5 Right side , 5/5 Left side Assessment and Plan Plan: Assessment and plan= chronic low back pain secondary to lumbar postlaminectomy pain syndrome, she had good pain relief after caudal epidural steroid injection with lysis of epidural adhesions chronic and current use of high-risk medication (opioids) Patient denies any side effects of the current pain medication and the current treatment/medication helping the patient to do activity of daily living , Diagnoses, prognosis, treatment options, including but not limited to physical therapy, medication management, interventional therapies, and surgery, were discussed with the patient All the questions answered The narcotic consent was signed and patient agreed and understood the side effects and complications of opioid treatment. Patient signed the narcotic agreement, and was orally counseled, not to overuse, not to abuse, not to Divert , not tp sell pain medication, and to take it as prescribed only, Patient was counseled not to drive or operate heavy equipment while using narcotic medication, and advised not to use alcohol or any Illicit drugs while using the narcotis, the patient's verbalized understanding that lack of compliance with any of the above instructions, will likely to cause discharge from, the pain service, not to renew his narcotic prescriptions Medication managements= patient will be given prescription refills for [place] 5/325 every 8 hours dispense 90 with 2 refill, Neurontin 400 mg 3 times a day dispense 90 with 2 refills Flexeril 10 mg daily at bedtime dispense 30 with 2 refills , MAPS reviewed and it was appropriate, UDS , Time with Patient: Less than 30 PQRS Measure Charge Sheet Measure #130: Documentation of Current Meds in Medical Chart: Patient's medications documented in chart Measure #226: Tobacco Use: Screen & Cessation Intervention: Pt not a tobacco user Measure #111: Pneumonia Vaccination: Pneumococcal vaccine NOT administered or previously given Measure #47: Advance Care Plan: Advance care planning discussed & documented, pt chose/unable to give Measure #412: Opioid Treatment Agreement: Documented signed opioid trtmnt agreemnt min once during opioid trtmnt Measure #408: Opioid Therapy Follow-up Evaluation: Patient had f/u eval minimum every 3 months during opioid therapy Measure #317: Preventitive Care & Scrn High Bld Press & F/U: Normal blood pressure, f/u not required Measure #128: Body Mass Index (BMI) Screening & Follow-up: BMI documented ABOVE normal parameters - f/u documented Measure #131: Pain Assessment & Follow-up: Pain positive & plan documented, Follow-up scheduled Measure #431: Unhealthy Alcohol Use Preventative Care & Scrn: Patient not identified as an unhealthy alcohol user PQRS Narrative: Smoking Status Never smoker Do You Want the Pneumonia No Vaccine AT THIS TIME? Narcotic Agreement Date Signed 07/28/17 Blood Pressure 129/82 Pain Intensity [Bilateral 2 Lower Back] Scale Used Numeric (1 - 10) Hx Alcohol Use (MH) No Home Medications: Ambulatory Orders Calcium/Magnesium/Zinc [Mjxaltg-Jiqvqkoto-Gqpw Tablet] 1 tab PO DAILY 10/22/13 Cranberry Conc/C/Bacill Coag [Cranberry Tablet] 1 cap PO DAILY 10/22/13 Multivitamin [Multivitamins] 1 tab PO DAILY 10/22/13 Cholecalciferol [Vitamin D3] 1,000 unit PO DAILY 07/04/15 Cyclobenzaprine [Flexeril] 10 mg PO HS PRN #30 tab 02/05/18 Gabapentin [Neurontin] 400 mg PO TID #90 cap 02/05/18 HYDROcodone/APAP 5-325MG [[place] 5-325] 1 - 2 tab PO Q8HR PRN 30 Days #90 tab HYDROcodone/APAP 5-325MG [[place] 5-325] 1 tab PO Q8HR PRN 30 Days #90 tab Hydrocodone/Acetaminophen [[place] 5-325] 1 tab PO Q8H PRN 30 Days #90 tab Controlled Substance Measures - Controlled Substance Measures Is patient prescribed a controlled substance at discharge?: Yes When asked, does pt state using other controlled substances?: No If prescribed controlled substance>3 days was MAPS reviewed?: Yes If Rx opioid, was Start Talking consent form obtained?: Yes If opioid is for acute pain is fill amount 7 days or less?: No Was information provided regarding opioid addiction?: Yes
== END | disposition home or self-care (01) ==
LOC: PNWHC3 11:58
PROVIDERS: ATTEND Specialist
DX: G89.29 Other chronic pain (principal); M96.1 Postlaminectomy syndrome, not elsewhere classified; Z79.891 Long term (current) use of opiate analgesic; Z79.899 Other long term (current) drug therapy
CPT/HCPCS: 99211

== ENCOUNTER → 2018-04-30 | Outpatient (CLI) | payer BC, OTHER ==
[2018-04-30 12:38] VITALS: PULSE 67; RESP 16
--- NOTE | 2018-04-30 13:17 | P.PAINPG ---
Subjective Progress Note Date: 04/30/18 This is follow-up visit for this patient with a history of severe and chronic low back pain secondary to lumbar postlaminectomy pain syndrome We have done an interventional pain procedure caudal epidural steroid injection with lysis of adhesions, and she had significant improvement in her low back pain after the procedure The patient currently on Neurontin 400 mg 3 times a day, [employer] 5/325 every 8 hours, Flexeril 10 mg daily at bedtime Patient denies any side effect of the medication , patient denies any excessive drowsiness or sleepiness, patient denies any suicidal ideation, Patient reported that the current medication is helping to control the pain and improve the activity of daily livings, Patient denies any motor or sensory deficit, denies any change in the bowel movement or urination, patient denies any fever or night sweats. Patient here today for follow-up visit and medication refill Physical Examinations : 1-Constitutiona : Cooperative , not in acute distress . 2-HEENT : nech ; supple , no Lymphadenopathy , normal thyroid size . eyes : no ptosis , no icterus , no photophobia . ENT : normal of hearing , normal oropharynx , no Thrush . 3- Respiratory : Chest clear to auscultations Bilaterally , no wheezing , no Rhonchi . 4- Cardiovascular : regular rate and rhythem , S1 , S2 , no S3 , no S4. 5- Gastrointestinal : abdomen soft no tenderness , bowel sounds , no organomegally . 6- Genitourinary : Defferred . 7- neurologic : Cranial nerve II to XII intact , no focal neurological deffecit . 8-psychatric : alert , oriented X 3 , appropriate affect , intact judgment and insight . 9-Lymphatic : no Lymphadenopathy . 10- musculoskeltal : Lumber spine moter stegnth lower extremities ,thigh and legs 5/5 Right side , 5/5 Left side Straight leg raising test positive bilaterally at 30 [place] test positive bilaterally Facet loading test positive bilaterally Assessment and plan= chronic low back pain secondary to lumbar postlaminectomy pain syndrome. chronic and current use of high-risk medication (opioids) Patient denies any side effects of the current pain medication and the current treatment/medication helping the patient to do activity of daily living , Diagnoses, prognosis, treatment options, including but not limited to physical therapy, medication management, interventional therapies, and surgery, were discussed with the patient All the questions answered The narcotic consent was signed and patient agreed and understood the side effects and complications of opioid treatment. Patient signed the narcotic agreement, and was orally counseled, not to overuse, not to abuse, not to Divert , not tp sell pain medication, and to take it as prescribed only, Patient was counseled not to drive or operate heavy equipment while using narcotic medication, and advised not to use alcohol or any Illicit drugs while using the narcotis, understanding that lack of compliance with any of the above instructions, will likely to cause discharge from, the pain service, not to renew his narcotic prescriptions Medication managements= patient will be given prescription refills for [employer] 5/325 every 8 hours dispense 90 with 1 refill, Neurontin 400 mg 3 times a day dispense 90 with 1 refills Flexeril 10 mg daily at bedtime Patient reported that the pain started increasing gradually over the last few weeks , and she will be candidate to have caudal epidural steroid injection with lysis of epidural adhesions MAPS reviewed and it was appropriate, UDS order today , Objective - Vital Signs Vital signs: Vital Signs Temp Pulse 67 04/30/18 12:31 Resp 16 04/30/18 12:31 BP Pulse Ox 100 04/30/18 12:31 Intake & Output 04/29/18 04/30/18 04/30/18 18:59 06:59 18:59 Weight 81.647 kg PQRS Measure Charge Sheet Measure #130: Documentation of Current Meds in Medical Chart: Patient's medications documented in chart Measure #226: Tobacco Use: Screen & Cessation Intervention: Pt not a tobacco user Measure #111: Pneumonia Vaccination: Pneumococcal vaccine NOT administered or previously given Measure #47: Advance Care Plan: Advance care planning discussed & documented, pt chose/unable to give Measure #412: Opioid Treatment Agreement: Documented signed opioid trtmnt agreemnt min once during opioid trtmnt Measure #408: Opioid Therapy Follow-up Evaluation: Patient had f/u eval minimum every 3 months during opioid therapy Measure #317: Preventitive Care & Scrn High Bld Press & F/U: Normal blood pressure, f/u not required Measure #128: Body Mass Index (BMI) Screening & Follow-up: BMI documented ABOVE normal parameters - f/u documented Measure #131: Pain Assessment & Follow-up: Pain positive & plan documented, Follow-up scheduled Measure #431: Unhealthy Alcohol Use Preventative Care & Scrn: Patient not identified as an unhealthy alcohol user PQRS Narrative: Smoking Status Never smoker Do You Want the Pneumonia No Vaccine AT THIS TIME? Narcotic Agreement Date Signed 07/28/17 Pain Intensity [Bilateral 4 Lower Back] Scale Used Numeric (1 - 10) Hx Alcohol Use (MH) No Home Medications: Ambulatory Orders Calcium/Magnesium/Zinc [Yovrlpp-Srtynmdro-Dmve Tablet] 1 tab PO DAILY 10/22/13 Cranberry Conc/C/Bacill Coag [Cranberry Tablet] 1 cap PO DAILY 10/22/13 Multivitamin [Multivitamins] 1 tab PO DAILY 10/22/13 Cholecalciferol [Vitamin D3] 1,000 unit PO DAILY 07/04/15 Cyclobenzaprine [Flexeril] 10 mg PO HS PRN #30 tab 02/05/18 Gabapentin [Neurontin] 400 mg PO TID #90 cap 04/30/18 HYDROcodone/APAP 5-325MG [[place] 5-325] 1 - 2 tab PO Q8HR PRN 30 Days #90 tab 02/07 Hydrocodone/Acetaminophen [[place] 5-325] 1 tab PO Q8H PRN 30 Days #90 tab Controlled Substance Measures - Controlled Substance Measures Is patient prescribed a controlled substance at discharge?: Yes When asked, does pt state using other controlled substances?: No If prescribed controlled substance>3 days was MAPS reviewed?: Yes If Rx opioid, was Start Talking consent form obtained?: Yes If opioid is for acute pain is fill amount 7 days or less?: No Was information provided regarding opioid addiction?: Yes
== END | disposition home or self-care (01) ==
LOC: PNWHC3 11:55
PROVIDERS: ATTEND Specialist
DX: G89.4 Chronic pain syndrome (principal); Z98.890 Other specified postprocedural states; Z79.891 Long term (current) use of opiate analgesic; Z79.899 Other long term (current) drug therapy
CPT/HCPCS: 80307; 99211; G0482

== ENCOUNTER → 2018-06-25 | Outpatient (CLI) | payer BC, OTHER ==
[2018-06-25 13:23] VITALS: BP 149/93; PULSE 84; RESP 16
--- NOTE | 2018-06-25 13:44 | P.PN ---
Subjective Progress Note Date: 06/25/18 This is follow-up visit for this patient with a history of severe and chronic low back pain secondary to lumbar postlaminectomy pain syndrome We have done an interventional pain procedure caudal epidural steroid injection with lysis of adhesions, and she had significant improvement in her low back pain after the procedure The patient currently on Neurontin 400 mg 3 times a day, [place] 5/325 every 8 hours, Flexeril 10 mg daily at bedtime Patient denies any side effect of the medication , patient denies any excessive drowsiness or sleepiness, patient denies any suicidal ideation, Patient reported that the current medication is helping to control the pain and improve the activity of daily livings, Patient denies any motor or sensory deficit, denies any change in the bowel movement or urination, patient denies any fever or night sweats. Patient here today for follow-up visit and medication refill Physical Examinations : 1-Constitutiona : Cooperative , not in acute distress . 2-HEENT : nech ; supple , no Lymphadenopathy , normal thyroid size . eyes : no ptosis , no icterus , no photophobia . ENT : normal of hearing , normal oropharynx , no Thrush . 3- Respiratory : Chest clear to auscultations Bilaterally , no wheezing , no Rhonchi . 4- Cardiovascular : regular rate and rhythem , S1 , S2 , no S3 , no S4. 5- Gastrointestinal : abdomen soft no tenderness , bowel sounds , no organomegally . 6- Genitourinary : Defferred . 7- neurologic : Cranial nerve II to XII intact , no focal neurological deffecit . 8-psychatric : alert , oriented X 3 , appropriate affect , intact judgment and insight . 9-Lymphatic : no Lymphadenopathy . 10- musculoskeltal : Lumber spine moter stegnth lower extremities ,thigh and legs 5/5 Right side , 5/5 Left side Straight leg raising test positive bilaterally at 30 Oclby test positive bilaterally Facet loading test positive bilaterally Assessment and plan= chronic low back pain secondary to lumbar postlaminectomy pain syndrome. chronic and current use of high-risk medication (opioids) Patient denies any side effects of the current pain medication and the current treatment/medication helping the patient to do activity of daily living , Diagnoses, prognosis, treatment options, including but not limited to physical therapy, medication management, interventional therapies, and surgery, were discussed with the patient All the questions answered The narcotic consent was signed and patient agreed and understood the side effects and complications of opioid treatment. Patient signed the narcotic agreement, and was orally counseled, not to overuse, not to abuse, not to Divert , not tp sell pain medication, and to take it as prescribed only, Patient was counseled not to drive or operate heavy equipment while using narcotic medication, and advised not to use alcohol or any Illicit drugs while using the narcotis, understanding that lack of compliance with any of the above instructions, will likely to cause discharge from, the pain service, not to renew his narcotic prescriptions Medication managements= patient will be given prescription refills for [place] 5/325 every 8 hours dispense 90 with 1 refill, Neurontin 400 mg 3 times a day dispense 90 with 1 refills Flexeril 10 mg daily at bedtime Patient reported that the pain started increasing gradually over the last few weeks , and she will be candidate to have caudal epidural steroid injection with lysis of epidural adhesions MAPS reviewed and it was appropriate, UDS reviewed and it was appropriate. Interventions= patient is scheduled to have caudal epidural steroid injection with lysis of epidural adhesions under fluoroscopy guidance P QRS measures , Measure #130: Documentation of Current Meds in Medical Chart: Patient's medications documented in chart Measure #226: Tobacco Use: Screen & Cessation Intervention: Pt not a tobacco user Measure #111: Pneumonia Vaccination: Pneumococcal vaccine NOT administered or previously given Measure #47: Advance Care Plan: Advance care planning discussed & documented, pt chose/unable to give Measure #412: Opioid Treatment Agreement: Documented signed opioid trtmnt agreemnt min once during opioid trtmnt Measure #408: Opioid Therapy Follow-up Evaluation: Patient had f/u eval minimum every 3 months during opioid therapy Measure #317: Preventitive Care & Scrn High Bld Press & F/U: Normal blood pressure, f/u not required Measure #128: Body Mass Index (BMI) Screening & Follow-up: BMI documented ABOVE normal parameters - f/u documented Measure #131: Pain Assessment & Follow-up: Pain positive & plan documented, Follow-up scheduled Measure #431: Unhealthy Alcohol Use Preventative Care & Scrn: Patient not identified as an unhealthy alcohol user PQRS Narrative - Controlled Substance Measures Is patient prescribed a controlled substance at discharge?: Yes When asked, does pt state using other controlled substances?: No If prescribed controlled substance>3 days was MAPS reviewed?: Yes If Rx opioid, was Start Talking consent form obtained?: Yes If opioid is for acute pain is fill amount 7 days or less?: No Was information provided regarding opioid addiction?: Yes Objective - Vital Signs Vital signs: Vital Signs Temp Pulse 84 06/25/18 13:12 Resp 16 06/25/18 13:12 BP 149/93 06/25/18 13:12 Pulse Ox 99 06/25/18 13:12 Intake & Output 06/24/18 06/25/18 06/25/18 18:59 06:59 18:59 Weight 79.379 kg
== END ==
LOC: PNWHC3 12:33
PROVIDERS: ATTEND Specialist
DX: G89.29 Other chronic pain (principal); M96.1 Postlaminectomy syndrome, not elsewhere classified; Z79.899 Other long term (current) drug therapy
CPT/HCPCS: 99211

== ENCOUNTER 2018-07-02 07:31 | Day surgery (SDC) | payer BC, OTHER ==
[2018-06-30 16:08] VITALS: BMI 25.1
[~2018-07-02 07:31] MED LIST changes: -LACTATED RINGERS 1,000 ML IV SCH; +SODIUM CHLORIDE 0.9% 500 ML 500 ML IV SCH
[2018-07-02 07:58] VITALS: TEMP 97.8
[2018-07-02] MEDS ORDERED: LACTATED RINGERS 1,000 ML IV ONE (07:58)
[2018-07-02] MEDS ORDERED: LIDOCAINE 1% 20 ML VIAL (10MG/ML) FOR IV START INTRADERMA ONE (07:59)
--- NOTE | 2018-07-02 08:41 | P.PCN ---
Date of Procedure: 07/02/18 Anesthesia: other (Moderate sedation) Description of Procedure: PREOP DIAGNOSIS: Lumbar postlaminectomy syndrome POSTOP DIAGNOSIS: Lumbar postlaminectomy syndrome PROCEDURE: Caudal epidural steroid injection with epidurolysis and epidurogram under fluoroscopic guidance ANESTHESIA: Local with 1% lidocaine 3 ml ; IV sedation with Versed 2 mg and fentanyl 100 g PROCEDURE INDICATION: The patient with post-laminectomy syndrome with low back pain and radiculopathy radiating down in both legs, here for a caudal epidural steroid injection with epidurolysis. PROCEDURE DESCRIPTION: The patient was seen and identified in the preoperative area. Risks, benefits, complications, and alternatives were discussed with the patient. The patient agreed to proceed with the procedure and signed the consent. IV was started, and vital signs were stable. Patient was taken to the OR and time out was completed. The patient was placed in the prone position on procedure table and a pillow was placed under the abdomen to reduce lumbar lordosis. The lumbosacral area was prepped and draped in the usual sterile fashion. Vital signs were closely monitored during the procedure. lateral view and the anterior-posterior plates of the sacrum were identified with infiltration of the area overlying the sacral hiatus with 1% lidocaine .A 17 gauge RK epidural needle was used to advance through the sacral hiatus into the caudal epidural space. Omnipaque 180 dye. 2cc was injected and the position of the needle was verified to be in the midline. A Racz catheter was introduced into the epidural space and was advanced towards the L5-S1 interspace under direct fluoroscopic guidance. Multiple passes were made with the catheter for lysis of epidural adhesions. Kenalog 40 mg with 3ml of preservative free Lidocaine 1% and 5 ml of preservative free normal saline was injected slowly. Additional spread was seen to L4 under fluoroscopy. The needle and the catheter were withdrawn intact. EPIDUROGRAM: Omnipaque 180 mg dye 2 ml was injected with spread of the dye into the caudal epidural space and with spread cutoff at L5 prior to epidurolysis. Post epidurolysis dye 2 ml was injected and spread was seen to L3- 4.There was further spread of the solution together with the dye above the L3 COMPLICATIONS: None. DISPOSITION / PLANS: The patient was placed in a supine position and transferred to the recovery area in a stable condition for observation and was discharged from the recovery room after meeting discharge criteria. Home discharge instructions given to the patient by the staff. The patient was reexamined prior to discharge. The patient will schedule a follow up in the clinic in 2-4 weeks.
[2018-07-02] MEDS ORDERED: IV FLUID CONTINUATION 1,000 ML IV ONE (09:10)
[2018-07-02 09:33] VITALS: BP 120/79; PULSE 63; RESP 16
--- NOTE | 2018-07-02 10:22 | FL ---
EXAMINATION TYPE: FL guided pain mgmt statistic DATE OF EXAM: 07/02/2018 FLUOROSCOPY Fluoroscopy time of 5 seconds was used during caudal injection. 3 image/s document/s the procedure.
== END 2018-07-02 09:56 | disposition home or self-care (01) ==
LOC: ORPAIN 07:31
PROVIDERS: ATTEND Hospitalist
DX: M96.1 Postlaminectomy syndrome, not elsewhere classified (principal)
CPT/HCPCS: 62264; J2250; J3301; J3010; Q9966; 62323

== ENCOUNTER → 2018-08-20 | Outpatient (CLI) | payer BC, OTHER ==
[2018-08-20 13:54] VITALS: BP 129/76; PULSE 68; RESP 16
--- NOTE | 2018-08-20 14:10 | P.PN ---
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 The patient had surgery on her back in 2009. She received a caudal epidural steroid injection recently which gave her significant relief of her pain. The patient states that her pain is starting to come back now. She was able to go down on the use of her [place] due to the improvement that she had in her pain from the last caudal epidural steroid injection. She denies any new symptoms. Today, pt denies new-onset weakness, bowel/bladder incontinence, or any other signs or symptoms of cauda equina syndrome. There are no signs of acute intoxication, and no indications of medication diversion or overuse. In addition to above, 13-point review of systems is also negative for chest pain , shortness of breath, changes in vision, changes in hearing, new onset weakness , abdominal pain, diarrhea, extreme fatigue, malaise, fever, skin changes, homicidal or suicidal ideation, or bowel or bladder incontinence. Vital Signs: Reviewed in EMR Gen: AAOx3, NAD HEENT: PERRLA,hearing grossly normal Pulm: resp unlabored,CTA Heart:S1,S2, No Mur Neck: supple, trachea midline Neuro exam of the lower extremities: Straight leg raising test: Colby's test: Range of motion of the lumbar spine: Facet loading test: Tenderness in the paravertebral musculature: Neuro: CN II-XII grossly intact, Imaging: Reviewed in EMR/chart Assessment: Plan: 1. Explanation: Opioid and psychological risk scores were reviewed. Diagnoses , prognoses, and multiple treatment options including but not limited to physical therapy, interventional therapies, adjuvant medical therapies, narcotic medication therapies, and surgery were discussed with the patient and all questions were answered to the patient's satisfaction. 2. Opioid agreement: Signed with the patient and the patient is warned not to use opioids while driving or before driving and not to combine opioids with benzodiazepines or alcohol. 3. Counseling: The patient was counseled extensively on SMOKING CESSATION, BODY MASS INDEX, EXERCISE. Specifically, the patient was instructed regarding the importance of smoking cessation, obesity, and exercise in the context of both chronic pain and overall health. 4. Procedures: None for now 5. Consultations: None 6. Investigations: None 7. Medications: Decreased [place] to 5/325 milligrams twice a day down from 3 times a day, continue Flexeril and Neurontin. 8. Disposition: Return to clinic in 4 weeks 9. Maps were reviewed and were appropriate. PQRS measures: 1-Patient's medications are documented in the chart. 2-Tobacco use is negative, counseling given 3-Patient has not had a pneumococcal vaccine. 4-Advanced care planning discussed, patient unable to give 5-Opioid contract signed with the patient. 6-Pain positive, follow-up visit or procedure scheduled 7-Patient's blood pressure measured and documented within normal limits. 8-Patient's weight was measured, and body mass index ABOVE the normal limits, and counseling was done. Patient instructed to follow up with PCP. 9-Patient WAS NOT identified as an unhealthy alcohol user. Controlled Substance Measures Is patient prescribed a controlled substance at discharge?: Yes When asked, does pt state using other controlled substances?: No If prescribed controlled substance>3 days was MAPS reviewed?: Yes If Rx opioid, was Start Talking consent form obtained?: Yes If opioid is for acute pain is fill amount 7 days or less?: No Was information provided regarding opioid addiction?: Yes Objective - Vital Signs Vital signs: Vital Signs Temp Pulse 68 08/20/18 13:33 Resp 16 08/20/18 13:33 BP 129/76 08/20/18 13:33 Pulse Ox Intake & Output 08/19/18 08/20/18 08/20/18 18:59 06:59 18:59 Weight 77.111 kg
== END | disposition home or self-care (01) ==
LOC: PNWHC3 13:01
PROVIDERS: ATTEND Anesthesiology
DX: G89.29 Other chronic pain (principal); M96.1 Postlaminectomy syndrome, not elsewhere classified; Z98.890 Other specified postprocedural states; Z79.891 Long term (current) use of opiate analgesic; Z79.899 Other long term (current) drug therapy
CPT/HCPCS: 99211

== ENCOUNTER → 2018-09-17 | Outpatient (CLI) | payer BC, OTHER ==
[2018-09-17 11:48] VITALS: BP 150/86; PULSE 79; RESP 16
--- NOTE | 2018-09-17 12:10 | P.PN ---
Subjective Progress Note Date: 09/17/18 This is a 58-year-old lady with history of failed back surgery syndrome and chronic lower back pain with radiation to the left lower extremity down to the left ankle with numbness and tingling in the left lower extremity. The patient's pain has been getting worse lately. She has very good response to a c audal epidural steroid injection with lysis of adhesions lately which lasted about 2 months. The patient has been using [place] 5 mg went down to 2 pills a day from 3 however her pain is poorly controlled now. 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 Today, pt denies new-onset weakness, bowel/bladder incontinence, or any other signs or symptoms of cauda equina syndrome. There are no signs of acute intoxication, and no indications of medication diversion or overuse. In addition to above, 13-point review of systems is also negative for chest pain, shortness of breath, changes in vision, changes in hearing, new onset weakness, abdominal pain, diarrhea, extreme fatigue, malaise, fever, skin changes, homicidal or suicidal ideation, or bowel or bladder incontinence. Vital Signs: Reviewed in EMR Gen: AAOx3, NAD HEENT: PERRLA,hearing grossly normal Pulm: resp unlabored Neck: supple, trachea midline Neuro exam of the lower extremities: Absent left ankle reflex. Normal muscle strength in the lower extremities bilaterally. Straight leg raising test: Positive on the left side Colby's test: Range of motion of the lumbar spine: Facet loading test: Tenderness in the paravertebral musculature: Positive on the lumbar paravertebral area bilaterally. Neuro: CN II-XII grossly intact, Imaging: Reviewed in EMR/chart Assessment: Failed back surgery syndrome Left lumbar radiculopathy Partial L5 sacralization Opioid dependence Plan: 1. Explanation: Opioid and psychological risk scores were reviewed. Diagnoses, prognoses, and multiple treatment options including but not limited to physical therapy, interventional therapies, adjuvant medical therapies, narcotic medication therapies, and surgery were discussed with the patient and all questions were answered to the patient's satisfaction. 2. Opioid agreement: Signed with the patient and the patient is warned not to use opioids while driving or before driving and not to combine opioids with benzodiazepines or alcohol. 3. Counseling: The patient was counseled extensively on SMOKING CESSATION, BODY MASS INDEX, EXERCISE. Specifically, the patient was instructed regarding the importance of smoking cessation, obesity, and exercise in the context of both chronic pain and overall health. 4. Procedures: Schedule for caudal epidural steroid injection with lysis of adh esions 5. Consultations: None 6. Investigations: None 7. Medications: Increase his [place] 5 mg 3 times a day for this month and then we will go down to 2 times a day after she gets her caudal epidural done 8. Disposition: Return to clinic in 8 weeks after the above-mentioned procedure as soon as possible 9. Maps were reviewed and were appropriate. PQRS measures: 1-Patient's medications are documented in the chart. 2-Tobacco use is negative, counseling given 3-Patient has not had a pneumococcal vaccine. 4-Advanced care planning discussed, patient unable to give 5-Opioid contract signed with the patient. 6-Pain positive, follow-up visit or procedure scheduled 7-Patient's blood pressure measured and documented normal limits. The patient will follow up with his primary care physician. 8-Patient's weight was measured, and body mass index ABOVE the normal limits, and counseling was done. Patient instructed to follow up with PCP. 9-Patient WAS NOT identified as an unhealthy alcohol user. Controlled Substance Measures Is patient prescribed a controlled substance at discharge?: Yes When asked, does pt state using other controlled substances?: No If prescribed controlled substance>3 days was MAPS reviewed?: Yes If Rx opioid, was Start Talking consent form obtained?: Yes If opioid is for acute pain is fill amount 7 days or less?: No Was information provided regarding opioid addiction?: Yes Objective - Vital Signs Vital signs: Vital Signs Temp Pulse 79 09/17/18 11:41 Resp 16 09/17/18 11:41 BP 150/86 09/17/18 11:41 Pulse Ox 100 09/17/18 11:41 Intake & Output 09/16/18 09/17/18 09/17/18 18:59 06:59 18:59 Weight 78.018 kg
== END | disposition home or self-care (01) ==
LOC: PNWHC3 11:27
PROVIDERS: ATTEND Anesthesiology
DX: G89.29 Other chronic pain (principal); M96.1 Postlaminectomy syndrome, not elsewhere classified; M54.16 Radiculopathy, lumbar region; Q76.49 Other congenital malformations of spine, not associated with scoliosis; F11.20 Opioid dependence, uncomplicated; Z98.890 Other specified postprocedural states
CPT/HCPCS: 99211

== ENCOUNTER 2018-10-26 06:18 | Day surgery (SDC) | payer BC, OTHER ==
[2018-10-22 09:12] VITALS: BMI 24.3
[~2018-10-26 06:18] MED LIST changes: +LACTATED RINGERS 1,000 ML IV SCH; -SODIUM CHLORIDE 0.9% 500 ML 500 ML IV SCH
[2018-10-26 06:30] VITALS: TEMP 97.2
[2018-10-26] MEDS ORDERED: LIDOCAINE 1% 20 ML VIAL (10MG/ML) FOR IV START INTRADERMA ONE (06:30)
--- NOTE | 2018-10-26 07:22 | P.PCN ---
Date of Procedure: 10/26/18 Procedure(s) Performed: PREOP DIAGNOSIS: 1- Lumbar postlaminectomy syndrome. POSTOP DIAGNOSIS:1- Lumbar postlaminectomy syndrome. PROCEDURE: 1-Caudal epidural steroid injection with epidurolysis and epidurogram under fluoroscopic guidance. 2-caudal epidurogram. ANESTHESIA: Local with 1% lidocaine 3 ml ,and moderate sedation, with Versed 2 mg and fentanyl 100 g. EBL: Minimal. PROCEDURE INDICATION: The patient with post-laminectomy syndrome with low back pain and radiculopathy radiating down in both legs, here for a caudal epidural steroid injection with epidurolysis. PROCEDURE DESCRIPTION: The patient was seen and identified in the preoperative area. Risks, benefits, complications, and alternatives were discussed with the patient. The patient agreed to proceed with the procedure and signed the consent. IV was started, and vital signs were stable. Patient was taken to the OR and time out was completed. The patient was placed in the prone position on procedure table and a pillow was placed under the abdomen to reduce lumbar lordosis. The lumbosacral area was prepped and draped in the usual sterile fashion. Vital signs were closely monitored during the procedure. lateral view and the anterior-posterior plates of the sacrum were identified with infiltration of the area overlying the sacral hiatus with 1% lidocaine .A 17 gauge RK epidural needle was used to advance through the sacral hiatus into the caudal epidural space. Omnipaque 180 dye. 2cc was injected and the position of the needle was verified to be in the midline. A Racz catheter was introduced into the epidural space and was advanced towards the L5-S1 inte rspace under direct fluoroscopic guidance. Multiple passes were made with the catheter for lysis of epidural adhesions. Depo-Medrol 80 mg with 3ml of preservative free Lidocaine 1% and 5 ml of preser vative free normal saline was injected slowly. Additional spread was seen to L4 under fluoroscopy. The needle and the catheter were withdrawn intact. EPIDUROGRAM: Omnipaque 180 mg dye 2 ml was injected with spread of the dye into the caudal epidural space and with spread cutoff at L5 prior to epidurolysis. Post epidurolysis dye 2 ml was injected and spread was seen to L3-4.There was further spread of the solution together with the dye above the L3 COMPLICATIONS: None. DISPOSITION / PLANS: The patient was placed in a supine position and transferred to the recovery area in a stable condition for observation and was discharged from the recovery room after meeting discharge criteria. Home discharge instructions given to the patient by the staff. The patient was reexamined prior to discharge. The patient will schedule a follow up in the clinic in 2-4 weeks.
[2018-10-26] MEDS ORDERED: IV FLUID CONTINUATION 650 ML IV ONE (07:25)
[2018-10-26 07:32] VITALS: RESP 18
[2018-10-26 07:42] VITALS: BP 117/78; PULSE 70
--- NOTE | 2018-10-26 08:13 | FL ---
EXAMINATION TYPE: FL guided pain mgmt statistic DATE OF EXAM: 10/26/2018 CLINICAL HISTORY: Low back and Sacral pain. TECHNIQUE: Fluoroscopy. COMPARISON: None. FINDINGS: Fluoroscopic guidance was provided during pain relief procedure performed by Dr. Molina . A total of 10 seconds of fluoroscopic time was utilized during the procedure and 3 spot images are acquired. Images acquired shows needle localization from posterior inferior approach at level of th e mid to lower sacrum and then lumbar vertebra. IMPRESSION: As Above.
== END 2018-10-26 07:54 | disposition home or self-care (01) ==
LOC: ORPAIN 06:18
PROVIDERS: ATTEND Specialist
DX: M96.1 Postlaminectomy syndrome, not elsewhere classified (principal); M53.3 Sacrococcygeal disorders, not elsewhere classified; M54.10 Radiculopathy, site unspecified; Z88.5 Allergy status to narcotic agent
CPT/HCPCS: 62264; J2250; J1030; J3010; Q9966; C1894; 62323; 99152

== ENCOUNTER → 2018-11-12 | Outpatient (CLI) | payer BC, OTHER ==
[2018-11-12 12:22] VITALS: BP 143/84; PULSE 78; RESP 20
--- NOTE | 2018-11-12 12:48 | P.PN ---
Subjective Progress Note Date: 11/12/18 This is follow-up visit for this patient with a history of severe and chronic low back pain secondary to lumbar postlaminectomy pain syndrome We have done an interventional pain procedure caudal epidural steroid injection with lysis of adhesions, and she had significant improvement in her low back pain after the procedure The patient currently on Neurontin 400 mg 3 times a day, [place] 5/325 every 8 hours, Patient denies any side effect of the medication , patient denies any excessive drowsiness or sleepiness, patient denies any suicidal ideation, Patient reported that the current medication is helping to control the pain and improve the activity of daily livings, Patient reports some weakness in her left lower extremity, denies any change in the bowel movement or urination, patient denies any fever or night sweats. Patient here today for follow-up visit and medication refill Physical Examinations : 1-Constitutiona : Cooperative , not in acute distress . 2-HEENT : nech ; supple , no Lymphadenopathy , normal thyroid size . eyes : no ptosis , no icterus, no photophobia . ENT : normal of hearing , normal oropharynx , no Thrush . 3- Respiratory : Chest clear to auscultations Bilaterally , no wheezing , no Rhonchi . 4- Cardiovascular : regular rate and rhythem , S1 , S2 , no S3 , no S4. 5- Gastrointestinal : abdomen soft no tenderness , bowel sounds , no organomegally . 6- Genitourinary : Defferred . 7- neurologic : Cranial nerve II to XII intact , no focal neurological deffecit . 8-psychatric : alert , oriented X 3 , appropriate affect , intact judgment and insight . 9-Lymphatic : no Lymphadenopathy . 10- musculoskeltal : Lumber spine moter stegnth lower extremities ,thigh and legs 5/5 Right side , 3-4/5 Left side Straight leg raising test positive bilaterally at 30 Colby test positive bilaterally Facet loading test positive bilaterally Assessment and plan= chronic low back pain secondary to lumbar postlaminectomy pain syndrome. chronic and current use of high-risk medication (opioids) Patient denies any side effects of the current pain medication and the current treatment/medication helping the patient to do activity of daily living , Diagnoses, prognosis, treatment options, including but not limited to physical therapy, medication management, interventional therapies, and surgery, were discussed with the patient All the questions answered The narcotic consent was signed and patient agreed and understood the side effects and complications of opioid treatment. Patient signed the narcotic agreement, and was orally counseled, not to o veruse, not to abuse, not to Divert , not tp sell pain medication, and to take it as prescribed only, Patient was counseled not to drive or operate heavy equipment while using narcotic medication, and advised not to use alcohol or any Illicit drugs while using the narcotis, understanding that lack of compliance with any of the above instructions, will likely to cause discharge from, the pain service, not to renew his narcotic prescriptions Medication managements= patient will be given prescription refills for [place] 5/325 every 8 hours dispense 90 with 1 refill, Neurontin 400 mg 3 times a day dispense 90 with 1 refills MAPS reviewed and it was appropriate Will order MRI of the lumbar spine with and without contrast to evaluate if there is any new etiology causing her symptoms, this patient reported that her pain increased significantly And she has some weakness in her left lower extremity, , - PQRS measures = - Patient's medications are documented in the chart. -Tobacco use is negative and counseling.Given. -Patient's has not received pneumococcal vaccine. -Advanced care planning discussed, patient not eligible. -Opiate contract signed. -Pain positive and follow-up visit/procedure is scheduled. -Patient's blood pressure measured [ 143/84 ] , and documented in the record ,and patient will follow up with the primary care. -Patient's weight was measured and body mass index [ 24.4 ] ,within the normal limits and counseling was done. and patient instructed to follow-up with the primary care physician. -Patient was not identified as an unhealthy alcohol user - Controlled Substance Measures Is patient prescribed a controlled substance at discharge?: Yes When asked, does pt state using other controlled substances?: No If prescribed controlled substance>3 days was MAPS reviewed?: Yes If Rx opioid, was Start Talking consent form obtained?: Yes If opioid is for acute pain is fill amount 7 days or less?: No Was information provided regarding opioid addiction?: Yes Objective - Vital Signs Vital signs: Vital Signs Temp Pulse 78 11/12/18 12:16 Resp 20 11/12/18 12:16 BP 143/84 11/12/18 12:16 Pulse Ox Intake & Output 11/11/18 11/12/18 11/12/18 18:59 06:59 18:59 Weight 77.111 kg
== END | disposition home or self-care (01) ==
LOC: PNWHC3 11:38
PROVIDERS: ATTEND Specialist
DX: G89.29 Other chronic pain (principal); M96.1 Postlaminectomy syndrome, not elsewhere classified; R53.1 Weakness; F11.20 Opioid dependence, uncomplicated; Z98.890 Other specified postprocedural states; Z79.899 Other long term (current) drug therapy
CPT/HCPCS: 99211

== ENCOUNTER → 2018-11-30 | Outpatient (CLI) | payer BC, OTHER ==
--- NOTE | 2018-11-30 16:46 | MR ---
EXAMINATION TYPE: MR lumbar spine wo/w con DATE OF EXAM: 11/30/2018 COMPARISON: Plain film dated 01/29/2010 HISTORY: PAIN AND STIFFNESS SINCE 2009, PAIN RADIATES DOWN LEFT SIDE, 7.5ML GADAVIST GIVEN, PREV MRI/ CT/XRAY AT [facility] TECHNIQUE: Multiplanar, multisequence images of the lumbar spine were acquired utilizing 7.5ML mL intravenous Ga davist gadolinium contrast. There is loss of disc height and signal of the intervertebral levels. There is no evident spinal sten osis or significant disc herniation, mild multilevel disc bulges cause only slight anterior mass effe ct on the thecal sac. There is multilevel facet arthropathy change present. No significant foraminal encroachment. Lumbar segments are intact. No paraspinal masses are identified. Conus medullaris has a normal appe arance. There is a spinal curvature present. There is a transitional vertebral body present, 6 nonrib bearing lumbar segments, note differences in numbering from prior plain film. Schmorl's node formati on present inferior endplate L4 to the right of midline. There is multilevel spondylosis with endplat e discogenic marrow signal change. There is some enhancement of the Schmorl's node and along the disc spaces of L4-5 and L5 L6 and L6-S1. IMPRESSION: Correlate with plain films prior to any intervention. Spinal curvature. Degenerative disc disease as described.
== END | disposition home or self-care (01) ==
LOC: RADMRIMAIN 15:05
PROVIDERS: ATTEND Specialist
DX: M51.36 Other intervertebral disc degeneration, lumbar region (principal); M43.8X6 Other specified deforming dorsopathies, lumbar region; M96.1 Postlaminectomy syndrome, not elsewhere classified
CPT/HCPCS: 72158; A9585

== ENCOUNTER → 2019-01-07 | Outpatient (CLI) | payer BC, OTHER ==
[2019-01-07 12:07] VITALS: BP 145/80; PULSE 85; RESP 18
--- NOTE | 2019-01-08 13:46 | P.PAINPG ---
Subjective Progress Note Date: 01/07/19 This is follow-up visit for this patient with a history of severe and chronic low back pain secondary to lumbar postlaminectomy pain syndrome. She was last evaluated in clinic on 11/12/2018 and an MRI lumbar spine was ordered which shows multilevel degenerative disc disease with facet arthropathy, no significant foraminal or canal stenosis. 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 Her primary pain complaint is her low back, radiating to the lateral aspect of her left leg and calf with associated numbness and tingling. She denies any new weakness. She last underwent caudal epidural steroid injection with lysis of adhesions on 10/26/2018, and she had significant improvement in her low back pain for 6-8 weeks following the procedure. The patient currently on Neurontin 400 mg 3 times a day, Model 5/325 every 8 hours, Patient denies any side effect of the medication , patient denies any excessive drowsiness or sleepiness, patient denies any suicidal ideation, Patient reported that the current medication is helping to control the pain and improve the activity of daily livings, Patient reports no weakness in her left lower extremity, denies any change in the bowel movement or urination, patient denies any fever or night sweats. Review of systems is negative for chest pain, shortness of breath, new onset weakness, numbness/tingling, abdominal pain, malaise, fever, night sweats, chills, homicidal or suicidal ideation, or bowel or bladder incontinence. Physical exam: Vital signs: Reviewed in EMR GENERAL: Well appearing, in no acute distress PSYCH: Mood and affect is appropriate. Awake, alert, and oriented SKIN: Skin color, texture, turgor normal, no rashes or lesions HEENT: Normocephalic, atraumatic. EOM intact CV: No pedal edema RESP: Respirations are unlabored, no audible wheezing GI: Abdomen non-distended MUSCULOSKELETAL: Bilateral upper and lower extremity strength is normal and symmetric. No atrophy or tone abnormalities are noted. Lumbar spine: Straight leg raising in the sitting position is negative for radicular pain. Tenderness to palpation over the lumbar spine and paraspinous muscles. Positive for pain with facet loading and back extension/rotation. Buttocks: Tenderness to palpation over the PSIS, bilateral Santana test positive Extremities: Peripheral joint ROM is full and pain free without obvious instability or laxity in all four extremities. No edema or skin discolorations noted. Gait: Gait is normal NEUR: Bilateral lower extremity coordination and muscle stretch reflexes are physiologic and symmetric. Negative clonus bilaterally. No loss of sensation is noted. Imaging: MRI lumbar spine was ordered which shows multilevel degenerative disc disease with facet arthropathy, no significant foraminal or canal stenosis. 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 Assessment and plan= chronic low back pain secondary to lumbar postlaminectomy pain syndrome, cervical spondylosis without myelopathy, sacroiliitis. chronic and current use of high-risk medication (opioids) Patient denies any side effects of the current pain medication and the current treatment/medication helping the patient to do activity of daily living , Diagnoses, prognosis, treatment options, including but not limited to physical therapy, medication management, interventional therapies, and surgery, were discussed with the patient All the questions answered The narcotic consent was signed and patient agreed and understood the side effects and complications of opioid treatment. Patient signed the narcotic agreement, and was orally counseled, not to overuse, not to abuse, not to Divert , not to sell pain medication, and to take it as prescribed only, Patient was counseled not to drive or operate heavy equipment while using narcotic medication, and advised not to use alcohol or any Illicit drugs while using the narcotics, understanding that lack of compliance with any of the above instructions, korey l likely to cause discharge from, the pain service, not to renew his narcotic prescriptions Medication managements= patient will be given prescription refills for [place] 5/325 every 8 hours dispense 90 with 1 refill, Neurontin 400 mg 3 times a day dispense 90 with 1 refills He had a lengthy discussion about use of long-term narcotics. We discussed reducing the Model dose gradually, once we are able to get her pain under control with interventional pain procedures. She is amenable to this. We also discussed potentially starting Cymbalta to help with pain control. MAPS reviewed and it was appropriate Will schedule bilateral lumbar medial branch blocks at medial branches of L3, L4 and L5. If patient gets no relief from this, would likely benefit from bilateral SI joint injections. , PQRS Measure Charge Sheet Measure #130: Documentation of Current Meds in Medical Chart: Patient's medications documented in chart Measure #226: Tobacco Use: Screen & Cessation Intervention: Pt not a tobacco user Measure #47: Advance Care Plan: Advance care planning discussed & documented, pt chose/unable to give Measure #412: Opioid Treatment Agreement: Documented signed opioid trtmnt agreemnt min once during opioid trtmnt Measure #408: Opioid Therapy Follow-up Evaluation: Patient had f/u eval minimum every 3 months during opioid therapy Measure #317: Preventitive Care & Scrn High Bld Press & F/U: Pre-hypertensive or hypertensive BP documented, pt will f/u with PCP Measure #128: Body Mass Index (BMI) Screening & Follow-up: BMI documented within normal parameters Measure #131: Pain Assessment & Follow-up: Pain positive & plan documented, Follow-up scheduled Measure #431: Unhealthy Alcohol Use Preventative Care & Scrn: Patient not identified as an unhealthy alcohol user PQRS Narrative: Smoking Status Never smoker Narcotic Agreement Date Signed 08/20/18 Hx Alcohol Use (MH) No Home Medications: Ambulatory Orders Calcium/Magnesium/Zinc [Wizafdh-Nadqnfsho-Rnmd Tablet] 1 tab PO DAILY 10/22/13 Cranberry Conc/C/Bacill Coag [Cranberry Tablet] 1 cap PO DAILY 10/22/13 Multivitamin [Multivitamins] 1 tab PO DAILY 10/22/13 Cholecalciferol [Vitamin D3] 1,000 unit PO DAILY 07/04/15 Cyclobenzaprine [Flexeril] 10 mg PO HS PRN #30 tab 06/25/18 Gabapentin [Neurontin] 400 mg PO TID #90 cap 01/07/19 Hydrocodone/Acetaminophen [Model 5-325] 1 each PO Q6HR PRN #90 tab 01/07/19 Hydrocodone/Acetaminophen [Model 5-325] 1 tab PO Q8H PRN 30 Days #90 tab 01/07/19 Controlled Substance Measures - Controlled Substance Measures Is patient prescribed a controlled substance at discharge?: Yes When asked, does pt state using other controlled substances?: No If prescribed controlled substance>3 days was MAPS reviewed?: Yes If Rx opioid, was Start Talking consent form obtained?: Yes If opioid is for acute pain is fill amount 7 days or less?: No Was information provided regarding opioid addiction?: Yes
== END | disposition home or self-care (01) ==
LOC: PNWHC3 11:20
PROVIDERS: ATTEND Anesthesiology
DX: G89.29 Other chronic pain (principal); M96.1 Postlaminectomy syndrome, not elsewhere classified; M47.816 Spondylosis without myelopathy or radiculopathy, lumbar region; M46.1 Sacroiliitis, not elsewhere classified; Z79.891 Long term (current) use of opiate analgesic; Z79.899 Other long term (current) drug therapy
CPT/HCPCS: 99211

== ENCOUNTER 2019-02-04 06:15 | Day surgery (SDC) | payer BC, OTHER ==
[2019-02-01 08:20] VITALS: BMI 24.0
[2019-02-04] MEDS ORDERED: LIDOCAINE 1% 20 ML VIAL (10MG/ML) FOR IV START INTRADERMA ONE (06:30)
[2019-02-04 06:49] VITALS: RESP 18; TEMP 97.1
--- NOTE | 2019-02-04 07:28 | P.PCN ---
Date of Procedure: 02/04/19 Procedure(s) Performed: PREOPERATIVE DIAGNOSIS : 1- Lumbar spondylosis with Facet Arthropathy without myelopathy . 2-failed back surgery syndrome lumbar area. 3- sacroiliitis POSTOPERATIVE DIAGNOSIS: 1- Lumbar spondylosis with Facet Arthropathy without myelopathy . 2-failed back surgery syndrome lumbar area 3- sacroiliitis PROCEDURE: Diagnostic bilateral L3 , L4 , and L5 medial branch block under fluoroscopy guidance(fluoroscopy images available in the radiology Department ). (to block the facet joint at L4-5 and L5-S1 ) ANESTHESIA: Local with Ropivacain 0.5 % 6 ml , moderate sedation with intravenous Versed 2 mg and Fentanyl 100 mcg. EBL: Minimal COMPLICATION: None. IV FLUIDS: 100 mL of normal saline. PROCEDURE INDICATION: Chronic low back pain secondary to Facet arthropathy unresponsive to conservative treatment. PROCEDURE DESCRIPTION: the patient was seen and identified in the preop holding area , risks and benefits and possible complications of the procedure and alternative were discussed with the patient, and the patient agreed to proceed with the procedure and signed the consent IV was started and vital signs monitored during the procedure and fluoroscopy was used to maximize the benefit and accuracy of the needle placement, and sedation was given to decrease patient anxiety, patient was taken to the procedure room and placed in prone position vital signs monitored in the back prepped with chlorhexidine X3 then under strict sterile technique using a right oblique fluoroscopy ,the junction of the transverse process and the superior articulating process of the right L3 , L4, and L5 vertebra which corresponding to the fluoroscopy image of the eye of the Ghassan dog on the block side for the medial branches and subsequently , after local infiltration of skin and subcu tissuies with Ropivacaine 0.5 % , one mL at each level ,then 22-gauge Quincke-type needles , 3 needle was used , each one of them placed at the junction of the base of the transverse process and the superior articular process at the appropriate level, and the needle was advanced until the periosteum contacted, needle placement confirmed with AP oblique and lateral view and after appropriate needle placement confirmed, and after negative aspiration for heme and CSF and there was no paresthesia 1-1/2 mL of Ropivacaine 0.5% mixed with 20 mg Depo-Medrol , then half mL injected at each l evel after negative aspiration the needle subsequently removed and the same procedure repeated for the left side at left side at L3, L4 and L5 levels. At the end of the procedure and the needles removed and a bandage applied after the skin was cleaned the cleaning solution patient taken to recovery room in stable condition and monitors in the recovery room for 20-30 minutes and discharged home in stable condition after discharge criteria met and patient will follow up with the pain clinic in 2-4 weeks
[2019-02-04 07:32] VITALS: BP 137/67
[2019-02-04] MEDS ORDERED: IV FLUID CONTINUATION 1,000 ML IV ONE (07:43)
[2019-02-04 07:54] VITALS: PULSE 78
--- NOTE | 2019-02-04 08:07 | FL ---
EXAMINATION TYPE: FL guided pain mgmt statistic DATE OF EXAM: 02/04/2019 CLINICAL HISTORY: Low back pain. TECHNIQUE: Fluoroscopy. COMPARISON: None. FINDINGS: Fluoroscopic guidance was provided during pain relief procedure performed by Dr. Molina . A total of 9 seconds of fluoroscopic time was utilized during the procedure and 4 spot images are acquired. Images acquired shows needle localization at multiple levels of the lumbar spine. IMPRESSION: As Above.
== END 2019-02-04 08:06 | disposition home or self-care (01) ==
LOC: ORPAIN 06:15
PROVIDERS: ATTEND Specialist
DX: G89.29 Other chronic pain (principal); M47.816 Spondylosis without myelopathy or radiculopathy, lumbar region; M96.1 Postlaminectomy syndrome, not elsewhere classified; M46.1 Sacroiliitis, not elsewhere classified; Z88.5 Allergy status to narcotic agent
CPT/HCPCS: 64493; 64494; J2250; J1030; J3010; 99152

== ENCOUNTER 2019-03-11 05:58 | Day surgery (SDC) | payer BC, OTHER ==
[2019-03-09 09:34] VITALS: BMI 24.3
[2019-03-11 06:32] VITALS: RESP 16; TEMP 97.1
[2019-03-11] MEDS ORDERED: IV FLUID CONTINUATION 1,000 ML IV ONE (07:28)
--- NOTE | 2019-03-11 07:36 | P.PCN ---
Date of Procedure: 03/11/19 Procedure(s) Performed: PREOPERATIVE DIAGNOSIS : Lumbar spondylosis with Facet Arthropathy without myelopathy POSTOPERATIVE DIAGNOSIS: same PROCEDURE: Diagnostic lumbar medial branch block with fluoroscopy at bilateral medial branch of L3, L4, dorsal rami of L5 ANESTHESIA: Local anesthetic; moderate sedation with 2 mg of Versed and 100 g of fentanyl Surgeon: Michael Fink MD PROCEDURE INDICATION: Lumbar spondylosis PROCEDURE DESCRIPTION: The patient was seen and identified in the preop holding area , risks and benefits and possible complications of the procedure and alternative were discussed with the patient, and the patient agreed to proceed with the procedure and signed the consent IV was started and vital signs monitored during the procedure and fluoroscopy was used to maximize the benefit and accuracy of the needle placement, and sedation was given to decrease patient anxiety, patient was taken to the procedure room and placed in prone position vital signs monitored in the back prepped. Under strict sterile technique using a right oblique fluoroscopy ,the junction of the transverse process and the superior articulating process of the bilateral L3- 4 , L4- 5, and L5-S1 vertebra which corresponding to the fluoroscopy image of the eye of the Ghassan dog on the block side for the medial branches and subsequently , after local infiltration of skin and subcutaneous tissues with lidocaine 1% one mL at each level ,then one 25-gauge Quincke-type needles was placed at the junction of the base of the transverse process and the superior articular process at the appropriate level, and the needle was advanced until the periosteum contacted, needle placement confirmed with AP and oblique view and after appropriate needle placement confirmed, and after negative aspiration, 0. 75 mL of Marcaine 0.5% was injected at each level and the needle subsequently removed. At the end of the procedure and the needles removed and a bandage applied after the skin was cleaned the cleaning solution patient taken to recovery room in stable condition and monitors in the recovery room for 20-30 minutes and discharged home in stable condition after discharge criteria met and patient will follow up with the pain clinic in 2-4 weeks, as this was her second medial branch block. EBL: Minimal COMPLICATION: None.
[2019-03-11 07:48] VITALS: BP 112/74; PULSE 77
--- NOTE | 2019-03-11 08:55 | FL ---
EXAMINATION TYPE: FL guided pain mgmt statistic DATE OF EXAM: 03/11/2019 FLUOROSCOPY Fluoroscopy time of 18 seconds was used during lumbar spine pain management procedure. 5 image/s doc ument/s the procedure.
== END 2019-03-11 07:59 | disposition home or self-care (01) ==
LOC: ORPAIN 05:58
PROVIDERS: ATTEND Student in an Organized Health Care Education/Training Program
DX: M47.816 Spondylosis without myelopathy or radiculopathy, lumbar region (principal); Z88.5 Allergy status to narcotic agent
CPT/HCPCS: 64493; 64494; J2250; J3010; 99152

== ENCOUNTER → 2019-04-05 | Outpatient (CLI) | payer BC, OTHER ==
[2019-04-05 13:01] VITALS: BP 180/91; PULSE 75; RESP 20
--- NOTE | 2019-04-05 13:31 | P.PAINPG ---
Subjective Progress Note Date: 04/05/19 This is follow-up visit for this patient with a history of severe and chronic low back pain secondary to lumbar postlaminectomy pain syndrome. She was last evaluated in clinic on 11/12/2018 and an MRI lumbar spine was ordered which shows multilevel degenerative disc disease with facet arthropathy, no significant foraminal or canal stenosis. 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 She denies any new weakness. Recently we have done diagnostic medial branch block lumbar area L3/L4/L5 , and she got excellent relief on both occasions her pain level before the first diagnostic medial branch block was 6-7/10 dropped to 0, and the second diagno stic medial branch block her pain level was 5/10 decreased to 1/10 after the block The patient currently on Neurontin 400 mg 3 times a day, [place] 5/325 every 8 hours, Flexeril 10 daily at bedtime when necessary Patient denies any side effect of the medication , patient denies any excessive drowsiness or sleepiness, patient denies any suicidal ideation, Patient reported that the current medication is helping to control the pain and improve the activity of daily livings, Patient reports no weakness in her left lower extremity, denies any change in the bowel movement or urination, patient denies any fever or night sweats. Review of systems is negative for chest pain, shortness of breath, new onset weakness, numbness/tingling, abdominal pain, malaise, fever, night sweats, chills, homicidal or suicidal ideation, or bowel or bladder incontinence. Objective - Vital Signs Vital signs: Vital Signs Temp Pulse 75 04/05/19 12:55 Resp 20 04/05/19 12:55 BP 180/91 04/05/19 12:55 Pulse Ox 100 04/05/19 12:55 - Exam Physical Examinations : -Constitutiona : Cooperative , not in acute distress . -HEENT : nech : supple , no Lymphadenopathy , normal thyroid size . eyes : no ptosis , no icterus, no photophobia . - neurologic : Cranial nerve II to XII intact , no focal neurological deffecit . -psychatric : alert , oriented X 3 , appropriate affect , intact judgment and insight . -Lymphatic : no Lymphadenopathy . - musculoskeltal : Lumber spine moter stegnth lower extremities ,thigh and legs 5/5 Right side , 5/5 Left side deep tendon reflexes : normal Knee Jerk , normal ankle Jerk positive lumber facet Loading Test Range of motion of the lumbar spine Flexion 30 degrees, extension 10 degrees strait leg raising test , positive at 60 degree Fabere test positive RT and po sitive LT . Assessment and Plan Plan: Assessment and plan= chronic low back pain secondary to lumbar failed back surgery syndrome , lumbar spondylosis with lumbar facet arthropathy . Patient had good results after the diagnostic medial branch block 2 chronic and current use of high-risk medication (opioids) Patient denies any side effects of the current pain medication and the current treatment/medication helping the patient to do activity of daily living , Diagnoses, prognosis, treatment options, including but not limited to physical therapy, medication management, interventional therapies, and surgery, were discussed with the patient All the questions answered The narcotic consent was signed and patient agreed and understood the side effects and complications of opioid treatment. Patient signed the narcotic agreement, and was orally counseled, not to overuse, not to abuse, not to Divert , not tp sell pain medication, and to take it as prescribed only, Patient was counseled not to drive or operate heavy equipment while using narcotic medication, and advised not to use alcohol or any Illicit drugs while using the narcotis. understanding that lack of compliance with any of the above instructions, will likely to cause discharge from, the pain service, not to renew his narcotic prescriptions MAPS Reviwed and it was apropriate . Medication managements= patient will be given prescription refills for [place] 5/325 every 8 hours dispense 90 with 1 refill, Neurontin 400 mg 3 times a day di spense 90 with 1 refill and Flexeril 10 mg daily at bedtime dispense 30 with one refill. Patient will be good candidate for RFA of the medial branch lumbar area with the left side first at L3 ,L4 ,L5 , Time with Patient: Less than 30 PQRS Measure Charge Sheet Measure #130: Documentation of Current Meds in Medical Chart: Patient's medications documented in chart Measure #226: Tobacco Use: Screen & Cessation Intervention: Pt not a tobacco user Measure #111: Pneumonia Vaccination: Pneumococcal vaccine NOT administered or previously given Measure #47: Advance Care Plan: Advance care planning discussed & documented, pt chose/unable to give Measure #412: Opioid Treatment Agreement: Documented signed opioid trtmnt agreemnt min once during opioid trtmnt Measure #408: Opioid Therapy Follow-up Evaluation: Patient had f/u eval minimum every 3 months during opioid therapy Measure #317: Preventitive Care & Scrn High Bld Press & F/U: Pre-hypertensive or hypertensive BP documented, pt will f/u with PCP Measure #128: Body Mass Index (BMI) Screening & Follow-up: BMI documented within normal parameters Measure #131: Pain Assessment & Follow-up: Pain positive & plan documented, Follow-up scheduled Measure #431: Unhealthy Alcohol Use Preventative Care & Scrn: Patient not identified as an unhealthy alcohol user PQRS Narrative: Smoking Status Never smoker Narcotic Agreement Date Signed 08/20/18 Blood Pressure 180/91 Pain Intensity [Lower Back] 4 Scale Used Numeric (1 - 10) Hx Alcohol Use (MH) No Home Medications: Ambulatory Orders Calcium/Magnesium/Zinc [Awahcuu-Ffgawgkpu-Rnbn Tablet] 1 tab PO DAILY 10/22/13 Cranberry Conc/C/Bacill Coag [Cranberry Tablet] 1 cap PO DAILY 10/22/13 Multivitamin [Multivitamins] 1 tab PO DAILY 10/22/13 Cholecalciferol [Vitamin D3] 1,000 unit PO DAILY 07/04/15 Cyclobenzaprine [Flexeril] 10 mg PO HS PRN #30 tab 06/25/18 Gabapentin [Neurontin] 400 mg PO TID #90 cap 01/07/19 Hydrocodone/Acetaminophen [[place] 5-325] 1 tab PO Q8H PRN 30 Days #90 tab 01/07/19 Controlled Substance Measures - Controlled Substance Measures Is patient prescribed a controlled substance at discharge?: Yes When asked, does pt state using other controlled substances?: No If prescribed controlled substance>3 days was MAPS reviewed?: Yes If Rx opioid, was Start Talking consent form obtained?: Yes If opioid is for acute pain is fill amount 7 days or less?: No Was information provided regarding opioid addiction?: Yes
== END ==
LOC: PNWHC3 12:05
PROVIDERS: ATTEND Specialist
DX: G89.29 Other chronic pain (principal); M96.1 Postlaminectomy syndrome, not elsewhere classified; M47.816 Spondylosis without myelopathy or radiculopathy, lumbar region; M46.96 Unspecified inflammatory spondylopathy, lumbar region; Z79.899 Other long term (current) drug therapy; Z79.891 Long term (current) use of opiate analgesic
CPT/HCPCS: 99211

== ENCOUNTER 2019-05-13 06:13 | Day surgery (SDC) | payer BC, OTHER ==
[2019-05-12 08:21] VITALS: BMI 24.3
[2019-05-13 06:41] VITALS: RESP 16; TEMP 97.2
[2019-05-13] MEDS ORDERED: LIDOCAINE 1% 20 ML VIAL (10MG/ML) FOR IV START INTRADERMA ONE (06:46)
--- NOTE | 2019-05-13 07:58 | P.PCN ---
Date of Procedure: 05/13/19 Procedure(s) Performed: PREOPERATIVE DIAGNOSIS: 1-Lumbar Spondylosis with Facet Arthropathy without myelopathy. POSTOPERATIVE DIAGNOSIS: 1- Lumbar Spondylosis with Facet Arthropathy without myelopathy. PROCEDURES : Left Radiofrequency thermocoagulation, L3, L4, and L5 medial branch, with fluoroscopic guidance (fluoroscopy images available in the radiology department) (to denervate the left side facet joint at L4- 5 and L5-S1 ). ANESTHESIA: Moderate sedation with intravenous versed 2 mg and fentaneyl 100 mcg, and local infiltration with Ropivacaine 0.5 % . EBL: Minimal PROCEDURE INDICATION: The patient with low back pain secondary to lumbar facet arthropathy who had more than 50% relief of her pain with previous diagnostic lumbar medial branch block with bupivacaine. PROCEDURE DESCRIPTION / TECHNIQUE: The patient was seen and identified in the preoperative area. Risks, benefits, complications, including but not limited to risk of infection ,bleeding , allergic reactions to the medications and no complete pain releife , and alternatives were discussed with the patient, the patient agreed to proceed with the procedure and signed the consent. IV was started. Vital signs remained stable throughout the procedure. Patient was taken to the OR and time out was completed. The patient was placed in the prone position on the procedure table. The lumber area was prepped and draped in the usual sterile fashion. . Vital signs were closely monitored during the procedure .IV sedation was used during the procedure to decrease patients anxiety. Using AP and then oblique fluoroscopy, the ``eye of the Ghassan dog corresponding to the connection between the superior and transverse articular processes of left L3, L4, and L5 were identified, marked, and localized with 1% lidocaine. Subsequently, a 18 [id number] radiofrequency cannula with a 10-mm active tip was advanced guided by fluoroscopy to each of the``eyes of the Ghassan dog at left L3, L4, and L5. Each site then underwent sensory testing at 50 Hz and 0 to 1 volt and motor testing at 2.5 Hz and 0 to 3 volt with local stimulation, but no radicular symptoms down the legs. Thereafter the left L3 , L4 , and L5 sites underwent radiofrequency thermocoagulation at 80 degrees celsius for 90 seconds after injecting 0.5 ml of PF Ropivacaine 1ml, then after the thermocoagulation done , 1 ml of the block solution containing Depo-Medrol 40 mg and 3 ml of Ropivacaine 0.5% was injected at the left L3 , L4 , and L5, levels after negative aspiration of CSF and blood and with no paresthesias. Cannulas were retracted while injecting lidocaine 1% until the needle is out. At the end of the procedure, the skin was cleansed and bandages were applied. COMPLICATIONS: No acute complications. DISPOSITION / PLANS: The patient was placed in a supine position and transferred to the recovery area in a stable condition for observation and was discharged from the recovery room after meeting discharge criteria. Home discharge instructions given to the patient by the staff. The patient was reexamined prior to discharge. The patient will schedule a follow up in the clinic in 2-4 weeks.
--- NOTE | 2019-05-13 08:06 | FL ---
EXAMINATION TYPE: FL guided pain mgmt statistic DATE OF EXAM: 05/13/2019 HISTORY: Pain lumbar rf 7 sec fl time used
[2019-05-13 08:15] VITALS: BP 127/78; PULSE 68
[2019-05-13] MEDS ORDERED: IV FLUID CONTINUATION 1,000 ML IV ONE (08:27)
== END 2019-05-13 08:30 | disposition home or self-care (01) ==
LOC: ORPAIN 06:13
PROVIDERS: ATTEND Specialist
DX: M47.816 Spondylosis without myelopathy or radiculopathy, lumbar region (principal); M96.1 Postlaminectomy syndrome, not elsewhere classified; Z88.5 Allergy status to narcotic agent
CPT/HCPCS: 64635; 64636; J2250; J1030; J3010; 99152

== ENCOUNTER → 2019-05-27 | Outpatient (CLI) | payer BC, OTHER ==
[2019-05-27 12:14] VITALS: BP 143/83; PULSE 80; RESP 16
--- NOTE | 2019-05-28 14:48 | P.PAINPG ---
Subjective Progress Note Date: 05/27/19 This is a follow-up visit for this patient with a history of severe and chronic low back pain secondary to lumbar postlaminectomy pain syndrome. She recently underwent left lumbar radiofrequency ablation on 05/13/2019 and returns today for follow-up. She reports excellent pain relief from this procedure, the pain is no longer radiating to the left outer leg. She reports greater than 50% pain relief of low back pain as well. The patient currently on Neurontin 400 mg 3 times a day, [place] 5/325 every 8 hours, Flexeril 10 mg daily. In prior visits, we have discussed reducing opioids, she is amenable to this plan. Patient denies any side effect of the medication , patient denies any excessive drowsiness or sleepiness, patient denies any suicidal ideation, Patient reported that the current medication is helping to control the pain and improve the activity of daily livings, Patient reports no weakness in her left lower extremity, denies any change in the bowel movement or urination, patient denies any fever or night sweats. Review of systems is negative for chest pain, shortness of breath, new onset weakness, numbness/tingling, abdominal pain, malaise, fever, night sweats, chills, homicidal or suicidal ideation, or bowel or bladder incontinence. Physical exam: Vital signs: Reviewed in EMR GENERAL: Well appearing, in no acute distress PSYCH: Mood and affect is appropriate. Awake, alert, and oriented SKIN: Skin color, texture, turgor normal, no rashes or lesions HEENT: Normocephalic, atraumatic. EOM intact CV: No pedal edema RESP: Respirations are unlabored, no audible wheezing GI: Abdomen non-distended MUSCULOSKELETAL: Left-sided hip flexion and leg extension is 4/5, remaining lower sternal strength is 5/5. No atrophy or tone abnormalities are noted. Lumbar spine: Straight leg raising in the sitting position is negative for radicular pain. Tenderness to palpation over the lumbar spine and paraspinous muscles bilaterally. Negative for pain with facet loading and back extension/rotation. Buttocks: Tenderness to palpation over the PSIS, bilateral Santana test positive Extremities: Peripheral joint ROM is full and pain free without obvious instability or laxity in all four extremities. No edema or skin discolorations noted. Gait: Gait is normal NEUR: Bilateral lower extremity coordination and muscle stretch reflexes are physiologic and symmetric. Negative clonus bilaterally. No loss of sensation is noted. Imaging: MRI lumbar spine was ordered which shows multilevel degenerative disc disease with facet arthropathy, no significant foraminal or canal stenosis. 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 Assessment and plan= chronic low back pain secondary to lumbar postlaminectomy pain syndrome, cervical spondylosis without myelopathy, sacroiliitis. chronic and current use of high-risk medication (opioids) Patient denies any side effects of the current pain medication and the current treatment/medication helping the patient to do activity of daily living , Diagnoses, prognosis, treatment options, including but not limited to physical therapy, medication management, interventional therapies, and surgery, were discussed with the patient All the questions answered The narcotic consent was signed and patient agreed and understood the side effects and complications of opioid treatment. Patient signed the narcotic agreement, and was orally counseled, not to overuse, not to abuse, not to Divert , not to sell pain medication, and to take it as prescribed only, Patient was counseled not to drive or operate heavy equipment while using narcotic medication, and advised not to use alcohol or any Illicit drugs while using the narcotics, understanding that lack of compliance with any of the above instructions, will likely to cause discharge from, the pain service, not to renew his narcotic prescriptions Medication management= today we will reduce her [place] prescription from [place] 5/325 #90 tablets to #80 tablets for 1 month followed by 70 tablets for the next month. Patient is amenable to this plan. We will plan on continuing to reduce her narcotics with time. We also refilled her, Neurontin 400 mg 3 times a day d ispense 90 with 1 refills as well as Flexeril 10 mg #30. I advised her to take extra strength Tylenolup to 2 g per day as well as [id number] Advil or other NSAIDs for pain control. MAPS reviewed and it was appropriate. UDS was sent today. In the future, she may benefit from bilateral SI joint injections. She feels her pain is reasonably well controlled at this time and does not want to pursue another procedure at this time. She was counseled to continue exercisingfocusing on her low back and SI joints. Follow-up: In 8 weeks for medication management PQRS Measure Charge Sheet Measure #130: Documentation of Current Meds in Medical Chart: Patient's medications documented in chart Measure #226: Tobacco Use: Screen & Cessation Intervention: Pt not a tobacco user Measure #47: Advance Care Plan: Advance care planning discussed & documented, pt chose/unable to give Measure #412: Opioid Treatment Agreement: Documented signed opioid trtmnt agreemnt min once during opioid trtmnt Measure #408: Opioid Therapy Follow-up Evaluation: Patient had f/u eval minimum every 3 months during opioid therapy Measure #317: Preventitive Care & Scrn High Bld Press & F/U: Pre-hypertensive or hypertensive BP documented, pt will f/u with PCP Measure #128: Body Mass Index (BMI) Screening & Follow-up: BMI documented within normal parameters Measure #131: Pain Assessment & Follow-up: Pain positive & plan documented, Follow-up scheduled Measure #431: Unhealthy Alcohol Use Preventative Care & Scrn: Patient not identified as an unhealthy alcohol user Objective - Vital Signs Vital signs: Vital Signs Temp Pulse 80 05/27/19 12:05 Resp 16 05/27/19 12:05 BP 143/83 05/27/19 12:05 Pulse Ox 100 05/27/19 12:05 PQRS Measure Charge Sheet PQRS Narrative: Smoking Status Never smoker Narcotic Agreement Date Signed 08/20/18 Blood Pressure 143/83 Pain Intensity [Lower Back] 4 Pain Intensity [Left Leg] 0 Scale Used Numeric (1 - 10) Hx Alcohol Use (MH) No Home Medications: Ambulatory Orders Calcium/Magnesium/Zinc [Fiaezmk-Qlbgizpqq-Mlcf Tablet] 1 tab PO DAILY 10/22/13 Cranberry Conc/C/Bacill Coag [Cranberry Tablet] 1 cap PO DAILY 10/22/13 Multivitamin [Multivitamins] 1 tab PO DAILY 10/22/13 Cholecalciferol [Vitamin D3] 1,000 unit PO DAILY 07/04/15 Cyclobenzaprine [Flexeril] 10 mg PO HS PRN #30 tab 06/25/18 Gabapentin [Neurontin] 400 mg PO TID #90 cap 01/07/19 Hydrocodone/Acetaminophen [[place] 5-325] 1 tab PO Q8H PRN 30 Days #90 tab 05/06/19 Controlled Substance Measures - Controlled Substance Measures Is patient prescribed a controlled substance at discharge?: Yes When asked, does pt state using other controlled substances?: No If prescribed controlled substance>3 days was MAPS reviewed?: Yes If Rx opioid, was Start Talking consent form obtained?: Yes If opioid is for acute pain is fill amount 7 days or less?: No Was information provided regarding opioid addiction?: Yes
== END | disposition home or self-care (01) ==
LOC: PNWHC3 11:43
PROVIDERS: ATTEND Anesthesiology
DX: G89.29 Other chronic pain (principal); M47.812 Spondylosis without myelopathy or radiculopathy, cervical region; M46.1 Sacroiliitis, not elsewhere classified; M96.1 Postlaminectomy syndrome, not elsewhere classified; Z79.899 Other long term (current) drug therapy; Z79.891 Long term (current) use of opiate analgesic
CPT/HCPCS: 80307; 99211; G0482

== ENCOUNTER → 2019-07-22 | Outpatient (CLI) | payer BC ==
[2019-07-22 12:27] VITALS: BP 154/96; PULSE 68; RESP 16
--- NOTE | 2019-07-24 16:06 | P.PAINPG ---
Subjective Progress Note Date: 07/22/19 This is a follow-up visit for this patient with a history of severe and chronic low back pain secondary to lumbar postlaminectomy pain syndrome. She recently underwent left lumbar radiofrequency ablation on 05/13/2019 and returns today for follow-up. She reports excellent pain relief from this procedure, the pain is no longer radiating to the left outer leg. She reports greater than 50% pain relief of low back pain as well. Today, she reports that she has left low back pain, non-radiating, lower than where her RFA was performed. Pain rated as 4/10. The patient currently on Neurontin 400 mg 3 times a day, [place] 5/325 every 8 hours, Flexeril 10 mg daily. At last visit, patient was weaned from [place] #90 to #70. Patient denies any side effect of the medication , patient denies any excessive drowsiness or sleepiness, patient denies any suicidal ideation, Patient reported that the current medication is helping to control the pain and improve the activity of daily livings, Patient reports no weakness in her left lower extremity, denies any change in the bowel movement or urination, patient denies any fever or night sweats. Review of systems is negative for chest pain, shortness of breath, new onset weakness, numbness/tingling, abdominal pain, malaise, fever, night sweats, chills, homicidal or suicidal ideation, or bowel or bladder incontinence. Physical exam: Vital signs: Reviewed in EMR GENERAL: Well appearing, in no acute distress PSYCH: Mood and affect is appropriate. Awake, alert, and oriented SKIN: Skin color, texture, turgor normal, no rashes or lesions HEENT: Normocephalic, atraumatic. EOM intact CV: No pedal edema RESP: Respirations are unlabored, no audible wheezing GI: Abdomen non-distended MUSCULOSKELETAL: Lower extremity strength is grossly 5/5. No atrophy or tone abnormalities are noted. Lumbar spine: Straight leg raising in the sitting position is negative for radicular pain. Tenderness to palpation over the lumbar spine and paraspinous muscles bilaterally. Negative for pain with facet loading and back extension/rotation. Buttocks: Tenderness to palpation over the left PSIS, left Santana test positive, left sacral thrust positive, left carolina's finger positive Extremities: Peripheral joint ROM is full and pain free without obvious instability or laxity in all four extremities. No edema or skin discolorations noted. Gait: Gait is normal NEUR: Bilateral lower extremity coordination and muscle stretch reflexes are physiologic and symmetric. Negative clonus bilaterally. No loss of sensation is noted. Imaging: MRI lumbar spine was ordered which shows multilevel degenerative disc disease with facet arthropathy, no significant foraminal or canal stenosis. 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 Assessment and plan= chronic low back pain secondary to lumbar postlaminectomy pain syndrome, cervical spondylosis without myelopathy, sacroiliitis. chronic and current use of high-risk medication (opioids) Patient denies any side effects of the current pain medication and the current treatment/medication helping the patient to do activity of daily living , Diagnoses, prognosis, treatment options, including but not limited to physical therapy, medication management, interventional therapies, and surgery, were discussed with the patient All the questions answered The narcotic consent was signed and patient agreed and understood the side effects and complications of opioid treatment. Medication management= today Franklin prescription from [place] 5/325 - 70 tablets with one refill, I did not reduce narcotic dose today, but will plan on continuing to reduce in future visits. Patient is amenable to this plan. We also refilled her, Neurontin 400 mg 3 times a day dispense 90 with 1 refills as well as Flexeril 10 mg #30. I advised her to take extra strength Tylenolup to 2 g per day as well as [id number] Advil or other NSAIDs for pain control. MAPS reviewed and it was appropriate. UDS reviewed, congruent. Will schedule left sided SI joint injection. She was counseled to continue exercisingfocusing on her low back and SI joints. She was also given exercise handout. Follow-up: For above mentioned procedure and In 8 weeks for medication management PQRS Measure Charge Sheet Measure #130: Documentation of Current Meds in Medical Chart: Patient's medications documented in chart Measure #226: Tobacco Use: Screen & Cessation Intervention: Pt not a tobacco user Measure #47: Advance Care Plan: Advance care planning discussed & documented, pt chose/unable to give Measure #412: Opioid Treatment Agreement: Documented signed opioid trtmnt agreemnt min once during opioid trtmnt Measure #408: Opioid Therapy Follow-up Evaluation: Patient had f/u eval minimum every 3 months during opioid therapy Measure #317: Preventitive Care & Scrn High Bld Press & F/U: Pre-hypertensive or hypertensive BP documented, pt will f/u with PCP Measure #128: Body Mass Index (BMI) Screening & Follow-up: BMI documented within normal parameters Measure #131: Pain Assessment & Follow-up: Pain positive & plan documented, Follow-up scheduled Measure #431: Unhealthy Alcohol Use Preventative Care & Scrn: Patient not identified as an unhealthy alcohol user Objective - Vital Signs Vital signs: Intake & Output 07/21/19 07/22/19 07/22/19 18:59 06:59 18:59 Weight 74.843 kg PQRS Measure Charge Sheet PQRS Narrative: Smoking Status Never smoker Narcotic Agreement Date Signed 08/20/18 Pain Intensity [Lower Back] 8 Scale Used Numeric (1 - 10) Hx Alcohol Use (MH) No Home Medications: Ambulatory Orders Calcium/Magnesium/Zinc [Gzftkey-Ghyuyabwh-Xvpd Tablet] 1 tab PO DAILY 10/22/13 Cranberry Conc/C/Bacill Coag [Cranberry Tablet] 1 cap PO DAILY 10/22/13 Multivitamin [Multivitamins] 1 tab PO DAILY 10/22/13 Cholecalciferol [Vitamin D3] 1,000 unit PO DAILY 07/04/15 Cyclobenzaprine [Flexeril] 10 mg PO HS PRN #30 tab 06/25/18 Gabapentin [Neurontin] 400 mg PO TID #90 cap 01/07/19 Hydrocodone/Acetaminophen [[place] 5-325] 1 tab PO Q8H PRN 30 Days #90 tab 05/06/19 Controlled Substance Measures - Controlled Substance Measures Is patient prescribed a controlled substance at discharge?: Yes When asked, does pt state using other controlled substances?: No If prescribed controlled substance>3 days was MAPS reviewed?: Yes If Rx opioid, was Start Talking consent form obtained?: Yes If opioid is for acute pain is fill amount 7 days or less?: No Was information provided regarding opioid addiction?: Yes
== END | disposition home or self-care (01) ==
LOC: PNWHC3 11:56
PROVIDERS: ATTEND Anesthesiology
DX: G89.29 Other chronic pain (principal); M47.812 Spondylosis without myelopathy or radiculopathy, cervical region; M96.1 Postlaminectomy syndrome, not elsewhere classified; M46.1 Sacroiliitis, not elsewhere classified; Z79.891 Long term (current) use of opiate analgesic; Z79.899 Other long term (current) drug therapy
CPT/HCPCS: 99211

== ENCOUNTER 2019-08-12 05:55 | Day surgery (SDC) | payer BC ==
[2019-08-10 10:09] VITALS: BMI 24.3
[2019-08-12 06:22] VITALS: RESP 18; TEMP 97.3
[2019-08-12] MEDS ORDERED: LIDOCAINE 1% 20 ML VIAL (10MG/ML) FOR IV START INTRADERMA ONE (06:27)
[2019-08-12] MEDS ORDERED: fentaNYL (PF) 50 MCG/ML 2 ML AMP ONE (06:56)
[2019-08-12] MEDS ORDERED: IOPAMIDOL M200 10 ML VIAL ONE (06:56)
[2019-08-12] MEDS ORDERED: TRIAMCINOLONE ACETONIDE 40 MG/ML 1 ML VIAL ONE (06:56)
[2019-08-12] MEDS ORDERED: ROPIVACAINE 5MG/ML 20ML VIAL ONE (06:56)
[2019-08-12] MEDS ORDERED: MIDAZOLAM 2 MG/2 ML VIAL ONE (06:56)
--- NOTE | 2019-08-12 07:20 | P.PCN ---
Date of Procedure: 08/12/19 Procedure(s) Performed: Preoperative diagnoses: left sacroilitis Postoperative diagnoses: left sacroilitis. Procedure: left sacroiliac joint steroid injection under fluoroscopic guidance. Surgeon: Tuan Cummings MD Anesthesia: [2 mL of 1% lidocaine/moderate sedation with Versed and fentanyl], sedation time 9 minutes Fluoroscopy was used for the procedure and fluoroscopic images were saved to the radiology portion of the patient's chart. EBL: None Procedure indication: The patient had a history of severe chronic low back pain, diagnosed with sacroiliitis unresponsive to conservative treatment. Procedure description: The patient was seen and identified in the preoperative holding area, risks and benefits and alternative of the procedure and possible complications discussed with the patient, and patient agreed with the preceding, patient signed the consent, an IV was started, and vital signs were monitored and were stable throughout the procedure, patient was placed in the prone position on table and the lumbosacral area was prepped and draped with a sterile fashion, vital signs were closely monitored during the procedure, the fluoroscopy camera was placed in the contralateral oblique view on the left sacroiliac joint and the lower part of the joint was identified . Then the skin and subcutaneous tissue was anesthetized using 2 mL of 1% lidocaine then a 22- gauge Quincke-type spinal needle advanced slowly under fluoroscopy and placed in the posterior and inferior border of the left sacroiliac joint, placement confirmed with AP and lateral view, and after appropriate needle placement confirmed and after negative aspiration for heme, 1 mL of Isovue 200 was injected revealing intra-articular spread. Then a solution consisting of 2 ml of ropivacaine 0.5% and 40 mg of Kenalog injected after negative aspiration, no paresthesia during the injection, no resistance to injection, and the needle was removed. Patient tolerated the procedure well without any complication. The patient was returned to supine position after the back was cleaned and a Band-Aid applied, the patient was transported to recovery room in stable condition and monitored for 30 minutes before being discharged home. The patient will follow up with the pain clinic in a few weeks
[2019-08-12] MEDS ORDERED: IV FLUID CONTINUATION 1,000 ML IV ONE (07:22)
[2019-08-12 07:35] VITALS: BP 118/73; PULSE 65
--- NOTE | 2019-08-12 08:09 | FL ---
Fluoroscopy INDICATION: Pain FINDINGS: Fluoroscopy time: 4 seconds. Images obtained: 2. IMPRESSIONS: 1. Documentation of fluoroscopy.
== END 2019-08-12 07:49 | disposition home or self-care (01) ==
LOC: ORPAIN 05:55
PROVIDERS: ATTEND Anesthesiology
DX: G89.29 Other chronic pain (principal); M46.1 Sacroiliitis, not elsewhere classified; Z78.0 Asymptomatic menopausal state
CPT/HCPCS: 27096; J2250; J3301; J3010; Q9966; J2795

== ENCOUNTER → 2019-11-17 | Outpatient (CLI) | payer BC, OTHER ==
--- NOTE | 2019-11-17 09:29 | P.PAINPG ---
Subjective Progress Note Date: 11/17/19 THIS ENCOUNTER WAS PERFORMED A TELEMEDICINE VISIT VIA SECURE TWO-WAY VIDEO AND AUDIO TO MINIMIZE RISK AND TRANSMISSION OF COVID-19. This is a follow-up visit for this patient with a history of severe and chronic low back pain secondary to lumbar postlaminectomy pain syndrome. She recently underwent left SI joint injection on 08/12/2019. She has been managed with a combination of interventional pain procedures and medications.last underwent a left SI joint injection on 08/12/2019 and reports excellent relief for approximately 2.5 months. Pain has just started to return over the last couple of weeks. Today, her pain is located in the left lower back, buttock, lateral aspect of left leg up to mid calf. Pain is rated at 210/10, described as aching, burning, stabbing. Pain is worse at night, with walking. Pain is better with medications, sitting, rest. She continues to exercise in the form of walking. The patient currently on Neurontin 400 mg 3 times a day, [place] 5/325 every 8-12 hours when necessary #90 per month, Flexeril 10 mg daily. A few months ago, patient was weaned from [place] #90 to #70, and she was doing well with this, however due to Mei virus pandemic, she was unable to get repeat procedure done, and dose was increased to #90. Patient denies any side effect of the medication , patient denies any excessive drowsiness or sleepiness, patient denies any suicidal ideation, Patient reported that the current medication is helping to control the pain and improve the activity of daily livings, Patient reports no weakness in her left lower extremity, denies any change in the bowel movement or urination, patient denies any fever or night sweats. Review of systems is negative for chest pain, shortness of breath, new onset weakness, numbness/tingling, abdominal pain, malaise, fever, night sweats, chills, homicidal or suicidal ideation, or bowel or bladder incontinence. Physical exam: Constitutional: Healthy appearing, well developed, alert, in no acute distress Psychiatric: Judgement and insight intact, alert and oriented Mood and Affect: mood normal, affect appropriate Head and Face: Inspection: normocephalic atraumatic, extraocular movement intact Respiratory: Breathing non-labored nondyspneic Skin: Head and Neck: skin with no lesions or rash Gait: able to ambulate without assistance Neurologic: sensation grossly intact per patient MSK: I asked the patient to perform Santana test, this was positive on the left side. Imaging: MRI lumbar spine shows multilevel degenerative disc disease with facet arthropathy, no significant foraminal or canal stenosis. 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 Assessment and plan= chronic low back pain secondary to lumbar postlaminectomy pain syndrome, cervical spondylosis without myelopathy, sacroiliitis. chronic and current use of high-risk medication (opioids) Patient denies any side effects of the current pain medication and the current treatment/medication helping the patient to do activity of daily living , Diagnoses, prognosis, treatment options, including but not limited to physical therapy, medication management, interventional therapies, and surgery, were discussed with the patient All the questions answered The narcotic consent was signed and patient agreed and understood the side effects and complications of opioid treatment. Medication management= today prescriptions were written for [place] 5/325 - 90 tablets, following month dose was reduced to 70 tablets. We also refilled Neurontin 400 mg 3 times a day dispense 90 with 1 refills as well as Flexeril 10 mg #30with one refill. MAPS reviewed and it was appropriate. UDS reviewed, congruent. She was counseled to continue exercising we will schedule repeat left sided SI joint injection, as patient had excellent relief from this. Follow-up: for above-mentioned procedure and In 8 weeks for medication management PQRS Measure Charge Sheet PQRS Narrative: Smoking Status Never smoker Narcotic Agreement Date Signed 07/22/19 Hx Alcohol Use (MH) No Home Medications: Ambulatory Orders Calcium/Magnesium/Zinc [Fyytdbc-Vvxptjjok-Nazq Tablet] 1 tab PO DAILY 10/22/13 Cranberry Conc/C/Bacill Coag [Cranberry Tablet] 1 cap PO DAILY 10/22/13 Multivitamin [Multivitamins] 1 tab PO DAILY 10/22/13 Cholecalciferol [Vitamin D3] 1,000 unit PO DAILY 07/04/15 Cyclobenzaprine [Flexeril] 10 mg PO HS PRN #30 tab 09/27/19 Gabapentin [Neurontin] 400 mg PO TID #90 cap 09/27/19 Hydrocodone/Acetaminophen [[place] 5-325] 1 tab PO Q8H PRN 30 Days #90 tab 09/27/19 Controlled Substance Measures - Controlled Substance Measures Is patient prescribed a controlled substance at discharge?: Yes When asked, does pt state using other controlled substances?: No If prescribed controlled substance>3 days was MAPS reviewed?: Yes If Rx opioid, was Start Talking consent form obtained?: Yes If opioid is for acute pain is fill amount 7 days or less?: No Was information provided regarding opioid addiction?: Yes
== END | disposition home or self-care (01) ==
LOC: PNWHC3 14:35
PROVIDERS: ATTEND Anesthesiology
DX: Z53.9 Procedure and treatment not carried out, unspecified reason (principal)

== ENCOUNTER → 2020-01-19 | Outpatient (CLI) | payer BC, OTHER ==
[2020-01-19 13:20] VITALS: RESP 16
--- NOTE | 2020-01-19 13:31 | P.PAINPG ---
Subjective Progress Note Date: 01/19/20 This is a follow-up visit for this patient with a history of severe and chronic low back pain secondary to lumbar postlaminectomy pain syndrome. She has been managed with a combination of interventional pain procedures and medications.last underwent a left SI joint injection on 08/12/2019 and reports excellent relief for approximately 2.5 months. Today, her pain is located in the left lower back, buttock, lateral aspect of left leg up to mid calf. Pain is rated at 210/10, described as aching, pressure. Pain is worse with walking, standing. Pain is better with medications, sitting, rest. She continues to exercise in the form of walking. The patient currently on Neurontin 400 mg 3 times a day, [place] 5/325 every 8-12 hours when necessary #90 per month, Flexeril 10 mg daily. At last visit, patient was weaned from [place] #90 to #70, but due to Mei virus pandemic, she was unable to get repeat procedure done Patient denies any side effect of the medication , patient denies any excessive drowsiness or sleepiness, patient denies any suicidal ideation, Patient reported that the current medication is helping to control the pain and improve the activity of daily livings, Patient reports no weakness in her left lower extremity, denies any change in the bowel movement or urination, patient denies any fever or night sweats. Review of systems is negative for chest pain, shortness of breath, new onset weakness, numbness/tingling, abdominal pain, malaise, fever, night sweats, chil ls, homicidal or suicidal ideation, or bowel or bladder incontinence. Physical exam: Constitutional: Healthy appearing, well developed, alert, in no acute distress Psychiatric: Judgement and insight intact, alert and oriented Mood and Affect: mood normal, affect appropriate Head and Face: Inspection: normocephalic atraumatic, extraocular movement intact Respiratory: Breathing non-labored nondyspneic Cardiovascular: No pedal edema Skin: Head and Neck: skin with no lesions or rash Gait: able to ambulate without assistance Neurologic: sensation grossly intact MSK: positive eileen test on the right, positive sacral thrust on the right, positive Gaenslen's test on the right Imaging: MRI lumbar spine shows multilevel degenerative disc disease with facet arthropathy, no significant foraminal or canal stenosis. 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 Assessment and plan= chronic low back pain secondary to lumbar postlaminectomy pain syndrome, cervical spondylosis without myelopathy, sacroiliitis. chronic and current use of high-risk medication (opioids) Patient denies any side effects of the current pain medication and the current treatment/medication helping the patient to do activity of daily living , Diagnoses, prognosis, treatment options, including but not limited to physical therapy, medication management, interventional therapies, and surgery, were discussed with the patient All the questions answered The narcotic consent was signed and patient agreed and understood the side effects and complications of opioid treatment. Medication management= today prescriptions were written for [place] 5/325 - 90 tablets, following month dose was reduced to 70 tablets. We also refilled Neurontin 400 mg 3 times a day dispense 90 with 1 refills as well as Flexeril 10 mg #30with one refill. MAPS reviewed and it was appropriate. UDS sent today we will schedule repeat left sided SI joint injection, as patient had excellent relief from this. She has this scheduled in 2 weeks. Follow-up: for above-mentioned procedure and In 8 weeks for medication management PQRS Measure Charge Sheet Measure #130: Documentation of Current Meds in Medical Chart: Patient's medications documented in chart Measure #226: Tobacco Use: Screen & Cessation Intervention: Pt not a tobacco user Measure #111: Pneumonia Vaccination: Pneumococcal vaccine NOT administered or previously given Measure #47: Advance Care Plan: Advance care planning discussed & documented, pt chose/unable to give Measure #412: Opioid Treatment Agreement: Documented signed opioid trtmnt agreemnt min once during opioid trtmnt Measure #408: Opioid Therapy Follow-up Evaluation: Patient had f/u eval minimum every 3 months during opioid therapy Measure #317: Preventitive Care & Scrn High Bld Press & F/U: Normal blood pressure, f/u not required Measure #128: Body Mass Index (BMI) Screening & Follow-up: BMI documented within normal parameters Measure #131: Pain Assessment & Follow-up: Pain positive & plan documented, Follow-up scheduled Measure #431: Unhealthy Alcohol Use Preventative Care & Scrn: Patient not identified as an unhealthy alcohol user PQRS Narrative: Smoking Status Never smoker Narcotic Agreement Date Signed 07/22/19 Hx Alcohol Use (MH) No Home Medications: Ambulatory Orders Calcium/Magnesium/Zinc [Rckupkj-Lnxnviqpn-Nlky Tablet] 1 tab PO DAILY 10/22/13 Cranberry Conc/C/Bacill Coag [Cranberry Tablet] 1 cap PO DAILY 10/22/13 Multivitamin [Multivitamins] 1 tab PO DAILY 10/22/13 Cholecalciferol [Vitamin D3] 1,000 unit PO DAILY 07/04/15 Cyclobenzaprine [Flexeril] 10 mg PO HS PRN #30 tab 01/19/20 Gabapentin [Neurontin] 400 mg PO TID #90 cap 01/19/20 HYDROcodone/APAP 5-325MG [[place] 5-325] 1 tab PO Q8HR PRN 30 Days #70 tab 01/19/20 Hydrocodone/Acetaminophen [[place] 5-325] 1 tab PO Q8H PRN 30 Days #90 tab 01/19/20 Controlled Substance Measures - Controlled Substance Measures Is patient prescribed a controlled substance at discharge?: Yes When asked, does pt state using other controlled substances?: No If prescribed controlled substance>3 days was MAPS reviewed?: Yes If Rx opioid, was Start Talking consent form obtained?: Yes If opioid is for acute pain is fill amount 7 days or less?: No Was information provided regarding opioid addiction?: Yes
== END | disposition home or self-care (01) ==
LOC: PNWHC3 12:13
PROVIDERS: ATTEND Anesthesiology
DX: M96.1 Postlaminectomy syndrome, not elsewhere classified (principal); G89.29 Other chronic pain; M47.812 Spondylosis without myelopathy or radiculopathy, cervical region; M46.1 Sacroiliitis, not elsewhere classified; Z79.891 Long term (current) use of opiate analgesic; Z79.899 Other long term (current) drug therapy
CPT/HCPCS: 80307; 99211; G0482

== ENCOUNTER 2020-02-03 06:14 | Day surgery (SDC) | payer BC, OTHER ==
[2020-01-31 09:07] VITALS: BMI 22.8
[2020-02-03] MEDS ORDERED: LIDOCAINE 1% (10MG/ML) FOR IV START INTRADERMA ONE (06:36)
[2020-02-03] MEDS ORDERED: methylPREDNISolone ACETATE 40 MG/ML 1 ML VIAL ONE (06:51)
[2020-02-03] MEDS ORDERED: MIDAZOLAM 2 MG/2 ML VIAL ONE (06:51)
[2020-02-03] MEDS ORDERED: fentaNYL (PF) 50 MCG/ML 2 ML AMP ONE (06:51)
[2020-02-03] MEDS ORDERED: ROPIVACAINE 5MG/ML 20ML VIAL ONE (06:51)
--- NOTE | 2020-02-03 07:07 | P.PCN ---
Date of Procedure: 02/03/20 Procedure(s) Performed: Procedure=Left sacroiliac joints steroid injection under fluoroscopy guidance (fluoroscopy image stored on file in the radiology Department ) Preoperative diagnosis= 1-Left sacroiliitis 2-lumbar failed back surgery syndrome 3-lumbar spondylosis with facet arthropathy Postoperative diagnosis=Same as preop Diagnosis . Complication = none Condition= stable Anesthesia= moderate sedation with intravenous Versed 1 mg , and fentanyl 50 micrograms . Indication for the procedure= patient complaining of low back pain , examination was positive for severe tenderness over the left sacroiliac joints and patient diagnosed with sacroiliitis, for this reason she was good candidate for sacroiliac joint steroid injection. Description of the procedure= procedure risk and benefits discussed with the patient, including but not limited, risk of infection and bleeding, and ALLERGIC reaction to the medication and not complete pain relief and patient agreed with the preceding patient taken to the operating room, placed in prone position or standard monitors applied to the patient then after induction of anesthesia back prepped with chlorhexidine 3 times , the left sacroiliac joint steroid injection done under strict sterile technique local infiltration of the skin and subcu interstitial at the location of the left sacroiliac joint then a 22-gauge Quincke Needle advanced slowly under fluoroscopy time placed in the left sacroiliac joint, needle placement confirmed with AP and oblique and lateral view then after appropriate needle placement confirmed and after negative aspiration 0.5% Marcaine 4 mL and 40 mg of Depo-Medrol injected in the left sacroiliac joint after negative aspiration patient tolerated the procedure well that any complications and she will follow up in clinic 3 weeks
[2020-02-03 07:14] VITALS: RESP 16
[2020-02-03] MEDS ORDERED: IV FLUID CONTINUATION 1,000 ML IV ONE (07:26)
[2020-02-03 07:28] VITALS: BP 132/67; PULSE 69
--- NOTE | 2020-02-03 08:18 | FL ---
EXAMINATION TYPE: FL guided pain mgmt statistic DATE OF EXAM: 02/03/2020 FLUOROSCOPY Fluoroscopy time of 2 seconds was used during left SI joint injection. 1 image/s document/s the proc edure.
== END 2020-02-03 07:31 | disposition home or self-care (01) ==
LOC: ORPAIN 06:14
PROVIDERS: ATTEND Specialist
DX: M46.1 Sacroiliitis, not elsewhere classified (principal); M96.1 Postlaminectomy syndrome, not elsewhere classified; M47.816 Spondylosis without myelopathy or radiculopathy, lumbar region; Z88.5 Allergy status to narcotic agent
CPT/HCPCS: 27096; J2250; J1030; J3010; J2795

== ENCOUNTER → 2020-03-15 | Outpatient (CLI) | payer BC, OTHER ==
[2020-03-15 08:09] VITALS: BP 138/85; PULSE 74; RESP 18; TEMP 98.1
--- NOTE | 2020-03-15 08:16 | P.PAINPG ---
Subjective Progress Note Date: 03/15/20 This is a follow-up visit for this patient with a history of severe and chronic low back pain secondary to lumbar postlaminectomy pain syndrome. She has been managed with a combination of interventional pain procedures and medications.last underwent a left SI joint injection on 01/2020. She had a L Si joint injection in 07/2019 with 2.5 months of relief. Patient noted recent left SI joint injection did not help very much, generally only hold for a month. However she has had left-sided RFA in the past the L4-L5 and L5-S1 joints provided significant relief. Currently her pain is located in the left low back buttock and lateral aspect of the leg to the midcalf. Currently a 7 out of 10 described as aching and pressure. Worse with walking and standing and better with medication sitting and rest. She continues to try to be active in the form of walking. The patient currently on Neurontin 400 mg 3 times a day, [place] 5/325 every 8-12 hours when necessary #70 per month, Flexeril 10 mg prn. Patient had been on 90 [place] in the past, but was weaned to 70 in our last visit 12/2019. Patient denies any side effect of the medication , patient denies any excessive drowsiness or sleepiness, patient denies any suicidal ideation, Patient reported that the current medication is helping to control the pain and improve the activity of daily livings, Patient reports no weakness in her left lower extremity, denies any change in the bowel movement or urination, patient denies any fever or night sweats. Review of systems is negative for chest pain, shortness of breath, new onset weakness, numbness/tingling, abdominal pain, malaise, fever, night sweats, chills, homicidal or suicidal ideation, or bowel or bladder incontinence. Physical exam: Constitutional: Healthy appearing, well developed, alert, in no acute distress Psychiatric: Judgement and insight intact, alert and oriented Mood and Affect: mood normal, affect appropriate Head and Face: Inspection: normocephalic atraumatic, extraocular movement intact Respiratory: Breathing non-labored nondyspneic Cardiovascular: No pedal edema Skin: Head and Neck: skin with no lesions or rash Gait: able to ambulate without assistance Neurologic: sensation grossly intact MSK: positive eileen test on the right, positive sacral thrust on the right, positive Gaenslen's test on the right Imaging: MRI lumbar spine shows multilevel degenerative disc disease with facet arthropathy, no significant foraminal or canal stenosis. 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 Assessment and plan= chronic low back pain secondary to lumbar postlaminectomy pain syndrome, cervical spondylosis without myelopathy, sacroiliitis. chronic and current use of high-risk medication (opioids) Patient denies any side effects of the current pain medication and the current treatment/medication helping the patient to do activity of daily living , Diagnoses, prognosis, treatment options, including but not limited to physical therapy, medication management, interventional therapies, and surgery, were discussed with the patient All the questions answered The narcotic consent was signed and patient agreed and understood the side effects and complications of opioid treatment. Schedule her for left-sided RFA of the L4-L5 and L5-S1 joints. She had this last April which provided almost 6-7 months released. Medication management= today prescriptions were written for [place] 5/325 - 70 tablets We also refilled Neurontin 400 mg 3 times a day dispense 90 with 1 refills MAPS reviewed and it was appropriate. UDS sent today Follow-up: 8 weeks for medication management PQRS Measure Charge Sheet PQRS Narrative: Smoking Status Never smoker Narcotic Agreement Date Signed 07/22/19 Pain Intensity [Lower Leg] 5 Hx Alcohol Use (MH) No Home Medications: Ambulatory Orders Calcium/Magnesium/Zinc [Aggjvde-Hvpdtnskt-Igzf Tablet] 1 tab PO DAILY 10/22/13 Cranberry Conc/C/Bacill Coag [Cranberry Tablet] 1 cap PO DAILY 10/22/13 Multivitamin [Multivitamins] 1 tab PO DAILY 10/22/13 Cholecalciferol [Vitamin D3] 1,000 unit PO DAILY 07/04/15 Cyclobenzaprine [Flexeril] 10 mg PO HS PRN #30 tab 01/19/20 Gabapentin [Neurontin] 400 mg PO TID #90 cap 03/15/20 HYDROcodone/APAP 5-325MG [[place] 5] 1 each PO Q8H PRN 24 Days #70 tab 03/15/20 Hydrocodone/Acetaminophen [[place] 5-325] 1 tab PO Q8H PRN 30 Days #70 tab 03/15/20 Controlled Substance Measures - Controlled Substance Measures Is patient prescribed a controlled substance at discharge?: Yes When asked, does pt state using other controlled substances?: No If prescribed controlled substance>3 days was MAPS reviewed?: Yes If Rx opioid, was Start Talking consent form obtained?: Yes If opioid is for acute pain is fill amount 7 days or less?: No Was information provided regarding opioid addiction?: Yes
== END | disposition home or self-care (01) ==
LOC: PNWHC3 07:49
PROVIDERS: ATTEND Anesthesiology
DX: M96.1 Postlaminectomy syndrome, not elsewhere classified (principal); M47.812 Spondylosis without myelopathy or radiculopathy, cervical region; M46.1 Sacroiliitis, not elsewhere classified; G89.29 Other chronic pain; Z79.899 Other long term (current) drug therapy; Z79.891 Long term (current) use of opiate analgesic
CPT/HCPCS: 99211

== ENCOUNTER 2020-04-04 06:16 | Day surgery (SDC) | payer BC, OTHER ==
[2020-04-03 09:11] VITALS: BMI 22.8
[2020-04-04 06:44] VITALS: TEMP 97.5
[2020-04-04] MEDS ORDERED: MIDAZOLAM 2 MG/2 ML VIAL ONE (07:18)
[2020-04-04] MEDS ORDERED: fentaNYL (PF) 50 MCG/ML 2 ML AMP ONE (07:18)
[2020-04-04] MEDS ORDERED: ROPIVACAINE 5MG/ML 20ML VIAL ONE (07:18)
[2020-04-04] MEDS ORDERED: TRIAMCINOLONE ACETONIDE 40 MG/ML 1 ML VIAL ONE (07:18)
--- NOTE | 2020-04-04 07:45 | P.PCN ---
Date of Procedure: 04/04/20 Surgeon: Babak Hendrickson Pathology: none sent Condition: stable Disposition: PACU Description of Procedure: PREOPERATIVE DIAGNOSIS: Lumbar spondylosis without myelopathy POSTOPERATIVE DIAGNOSIS: Lumbar spondylosis without myelopathy PROCEDURES : Left Radiofrequency thermocoagulation L4-L5, and L5-S1 medial branch, with fluoroscopic guidance ANESTHESIA: IV moderate conscious sedation with versed and fentanyl and local infiltration with lidocaine 1% 5 ml Physician:Babak Hendrickson MD EBL: Minimal PROCEDURE INDICATION: The patient with low back pain secondary to lumbar facet arthropathy who had more than 50% relief of her pain with previous diagnostic lumbar medial branch block with bupivacaine. PROCEDURE DESCRIPTION / TECHNIQUE: The patient was seen and identified in the preoperative area. Risks, benefits, complications, including but not limited to risk of infection ,bleeding , allergic reactions to the medications and no complete pain relief , and alternatives were discussed with the patient, the patient agreed to proceed with the procedure and signed the consent. IV was started. Vital signs remained stable throughout the procedure. Patient was taken to the OR and time out was completed. The patient was placed in the prone position on the procedure table. The lumber area was prepped and draped in the usual sterile fashion. . Vital signs were closely monitored during the procedure .IV sedation was used during the procedure to decrease patients anxiety. The target points were identified as follows: For the L5-S1 level which corresponds to the dorsal ramus of L5 the target point was at the superior medial aspect of the sacral ala on the left side of the spine on the AP view of fluoroscopy and for the L3, and L4 medial branches the target points were at the connection between the transverse process and the superior articular process of L4, and L5 vertebra respectively on the left oblique view of fluoroscopy. skin was marked, and localized with 1% lidocaineat these points. Subsequently, an 18 [id number] radiofrequency needles with a 10-mm curved active tips were advanced guided by fluoroscopy to each of the target points mentioned above in a superior medial direction to get the active tips as parallel as possible to the medial branches tracks. AP, oblique, and lateral views of fluoroscopy were used to verify needle tips position. Each level then underwent motor testing at 2.5 Hz and 0 to 3 volt with local stimulation, but no radicular symptoms down the legs. Thereafter radiofrequency thermocoagulation at 80 degrees celsius for 90 seconds after injecting 1 ml of PF Marcaine 0.5%(3 mls) with 40 mg of Kenalog. At the end of the procedure, the skin was cleansed and bandages were applied. A copy of needle placement fluoroscopy was saved on the C-arm machine. COMPLICATIONS: No acute complications. DISPOSITION / PLANS: The patient was placed in a supine position and transferred to the recovery area in a stable condition for observation and was discharged from the recovery room after meeting discharge criteria. Home discharge instructions given to the patient by the staff. The patient was reexamined prior to discharge. The patient will schedule a follow up in the clinic in 2-4 weeks.
[2020-04-04] MEDS ORDERED: IV FLUID CONTINUATION 1,000 ML IV ONE (07:50)
[2020-04-04 08:05] VITALS: BP 108/70; PULSE 63; RESP 18
--- NOTE | 2020-04-04 08:55 | FL ---
Fluoroscopy INDICATION: Pain FINDINGS: Fluoroscopy time: 19 seconds. Images obtained: 3. IMPRESSIONS: 1. Documentation of fluoroscopy.
== END 2020-04-04 08:20 | disposition home or self-care (01) ==
LOC: ORPAIN 06:16
PROVIDERS: ATTEND Anesthesiology
DX: M47.816 Spondylosis without myelopathy or radiculopathy, lumbar region (principal); Z88.5 Allergy status to narcotic agent; Z90.710 Acquired absence of both cervix and uterus
CPT/HCPCS: 64635; 64636; J2250; J3301; J3010; J2795; 99152

== ENCOUNTER → 2020-05-10 | Outpatient (CLI) | payer BC, OTHER ==
--- NOTE | 2020-05-10 07:47 | P.PAINPG ---
Subjective Progress Note Date: 05/10/20 This is a follow-up visit for this patient with a history of severe and chronic low back pain secondary to lumbar postlaminectomy pain syndrome. She has been managed with a combination of interventional pain procedures and medications.last underwent a left SI joint injection on 01/2020 and left RFA at L4-L5 and L5-S1 on 03/2020. Her most recent SI injection did not help as much so we proceeded with the RFA. She notes that her most recent procedures very successful. She says her pain is currently 1 out of 10 and she feels like she is very good place. Her pain is generally located in the left low back and buttock radiating to the lateral aspect of the midcalf currently a 1 out of 10. Worse with walking and standing and better with her medication, rest and the procedures. She is being more active now that she has had her RFA. The patient currently on Neurontin 400 mg 3 times a day, [place] 5/325 every 8-12 hours when necessary #70 per month, Flexeril 10 mg prn. Patient had been on 90 [place] in the past, but was weaned to 70 on 12/2019. Patient denies any side effect of the medication , patient denies any excessive drowsiness or sleepiness, patient denies any suicidal ideation, Patient reported that the current medication is helping to control the pain and improve the activity of daily livings, Patient reports no weakness in her left lower extremity, denies any change in the bowel movement or urination, patient denies any fever or night sweats. Review of systems is negative for chest pain, shortness of breath, new onset weakness, numbness/tingling, abdominal pain, malaise, fever, night sweats, chills, homicidal or suicidal ideation, or bowel or bladder incontinence. Physical exam: Constitutional: Healthy appearing, well developed, alert, in no acute distress Psychiatric: Judgement and insight intact, alert and oriented Mood and Affect: mood normal, affect appropriate Head and Face: Inspection: normocephalic atraumatic, extraocular movement intact Respiratory: Breathing non-labored nondyspneic Cardiovascular: No pedal edema Skin: Head and Neck: skin with no lesions or rash Gait: able to ambulate without assistance Neurologic: sensation grossly intact MSK: mildly positive eileen test on the right Imaging: MRI lumbar spine shows multilevel degenerative disc disease with facet arthropathy, no significant foraminal or canal stenosis. 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 Assessment and plan= chronic low back pain secondary to lumbar postlaminectomy pain syndrome, cervical spondylosis without myelopathy, sacroiliitis. chronic and current use of high-risk medication (opioids) Patient denies any side effects of the current pain medication and the current treatment/medication helping the patient to do activity of daily living , Diagnoses, prognosis, treatment options, including but not limited to physical therapy, medication management, interventional therapies, and surgery, were discussed with the patient All the questions answered The narcotic consent was signed and patient agreed and understood the side effects and complications of opioid treatment. Medication management= today prescriptions were written for [place] 5/325 - 70 tablets We also refilled Neurontin 400 mg 3 times a day dispense 90 with 1 refills MAPS reviewed and it was appropriate. UDS sent today Follow-up: 8 weeks for medication management PQRS Measure Charge Sheet PQRS Narrative: Smoking Status Never smoker Narcotic Agreement Date Signed 07/22/19 Pain Intensity [Lower Leg] 5 Hx Alcohol Use (MH) No Objective - Vital Signs Vital signs: Intake & Output 05/08/20 05/09/20 05/09/20 18:59 06:59 18:59 Weight 70.307 kg PQRS Measure Charge Sheet PQRS Narrative: Smoking Status Never smoker Narcotic Agreement Date Signed 07/22/19 Pain Intensity [Lower Back] 2 Hx Alcohol Use (MH) No Home Medications: Ambulatory Orders Calcium/Magnesium/Zinc [Dglooic-Qhtlzfjqw-Cggu Tablet] 1 tab PO DAILY 10/22/13 Cranberry Conc/C/Bacill Coag [Cranberry Tablet] 1 cap PO DAILY 10/22/13 Multivitamin [Multivitamins] 1 tab PO DAILY 10/22/13 Cholecalciferol [Vitamin D3] 1,000 unit PO DAILY 07/04/15 Cyclobenzaprine [Flexeril] 10 mg PO HS PRN #30 tab 03/15/20 Gabapentin [Neurontin] 400 mg PO TID #90 cap 03/15/20 Hydrocodone/Acetaminophen [[place] 5-325] 1 tab PO Q8H PRN 30 Days #70 tab 03/15/20 Controlled Substance Measures - Controlled Substance Measures Is patient prescribed a controlled substance at discharge?: Yes When asked, does pt state using other controlled substances?: No If prescribed controlled substance>3 days was MAPS reviewed?: Yes If Rx opioid, was Start Talking consent form obtained?: Yes If opioid is for acute pain is fill amount 7 days or less?: No Was information provided regarding opioid addiction?: Yes
[2020-05-10 07:57] VITALS: BP 123/77; PULSE 81; RESP 18; TEMP 98.2
== END | disposition home or self-care (01) ==
LOC: PNWHC3 07:33
PROVIDERS: ATTEND Anesthesiology
DX: M96.1 Postlaminectomy syndrome, not elsewhere classified (principal); G89.29 Other chronic pain; M47.812 Spondylosis without myelopathy or radiculopathy, cervical region; M46.1 Sacroiliitis, not elsewhere classified; Z79.899 Other long term (current) drug therapy; Z79.891 Long term (current) use of opiate analgesic
CPT/HCPCS: 99211

== ENCOUNTER → 2020-05-25 | Outpatient (CLI) | payer BC ==
--- NOTE | 2020-05-26 10:30 | MM ---
Reason for exam: screening (asymptomatic). Last mammogram was performed 2 years and 10 months ago. History: Patient has history of other cancer at age 53. Physical Findings: A clinical breast exam by your physician is recommended on an annual basis and results should be correlated with mammographic findings. MG Screening Mammo w CAD Bilateral CC, MLO, and XCCL view(s) were taken. Prior study comparison: July 15, 2017, right breast MG work up mamm w CAD RT. July 07, 2017, bilateral MG screening mammo w CAD. There are scattered fibroglandular densities. No significant changes when compared with prior studies. ASSESSMENT: Negative, BI-RAD 1 RECOMMENDATION: Routine screening mammogram of both breasts in 1 year.
== END | disposition home or self-care (01) ==
LOC: RADMAMWWP 07:06
PROVIDERS: ATTEND Internal Medicine
DX: Z12.31 Encounter for screening mammogram for malignant neoplasm of breast (principal)
CPT/HCPCS: 77067

== ENCOUNTER → 2020-07-05 | Outpatient (CLI) | payer BC, OTHER ==
[2020-07-05 07:57] VITALS: BP 127/85; PULSE 76; RESP 18; TEMP 98.4
--- NOTE | 2020-07-05 08:10 | P.PN ---
Subjective Progress Note Date: 07/05/20 This is follow-up visit for this 54 years old female, with a history of severe and chronic low back pain secondary to lumbar postlaminectomy pain syndrome. Lumbar spondylosis with lumbar facet arthropathy and left sacroiliitis, a few months ago which helped him left sided RFA of the medial branch area, get good pain relief from it and her pain continued to be managed with pain medication management and interventional pain management The patient currently on Neurontin 400 mg 3 times a day, [place] 5/325 every 8 hours when necessary, Flexeril 10 daily at bedtime when necessary Patient denies any side effect of the medication , patient denies any excessive drowsiness or sleepiness, patient denies any suicidal ideation,Patient reported that the current medication is helping to control the pain and improve the activity of daily livings,Patient reports no weakness in her left lower extremity, denies any change in the bowel movement or urination, patient denies any fever or night sweats. Review of systems is negative for chest pain, shortness of breath, new onset weakness, numbness/tingling, abdominal pain, malaise, fever, night sweats, chills, homicidal or suicidal ideation, or bowel or bladder incontinence. Objective - Vital Signs Vital signs: Vital Signs Temp 98.4 F 07/05/20 07:53 Pulse 76 07/05/20 07:53 Resp 18 07/05/20 07:53 BP 127/85 07/05/20 07:53 Pulse Ox 100 07/05/20 07:53 Intake & Output 07/04/20 07/05/20 07/05/20 18:59 06:59 18:59 Weight 68.039 kg - Exam -Constitutiona : Cooperative , not in acute distress . -HEENT : nech : supple , no Lymphadenopathy , normal thyroid size . eyes : no ptosis , no icterus, no photophobia . - neurologic : Cranial nerve II to XII intact , no focal neurological deffecit . -psychatric : alert , oriented X 3 , appropriate affect , intact judgment and insight . -Lymphatic : no Lymphadenopathy . - musculoskeltal : Lumber spine moter stegnth lower extremities ,thigh and legs 5/5 Right side , 5/5 Left side deep tendon reflexes : normal Knee Jerk , normal ankle Jerk positive lumber facet Loading Test Range of motion of the lumbar spine Flexion 30 degrees, extension 10 degrees strait leg raising test , positive at 60 degree Fabere test positive RT and positive LT . Assessment and Plan Plan: Assessment and plan= chronic low back pain secondary to lumbar failed back surgery syndrome , lumbar spondylosis with lumbar facet arthropathy . Left sacroiliitis had good pain relief after RFA of the medial branch lumbar area chronic and current use of high-risk medication (opioids) Patient denies any side effects of the current pain medication and the current treatment/medication helping the patient to do activity of daily living , Diagnoses, prognosis, treatment options, including but not limited to p hysical therapy, medication management, interventional therapies, and surgery, were discussed with the patient All the questions answered The narcotic consent was signed and patient agreed and understood the side effects and complications of opioid treatment. Patient signed the narcotic agreement, and was orally counseled, not to overuse, not to abuse, not to Divert , not tp sell pain medication, and to take it as prescribed only, Patient was counseled not to drive or operate heavy equipment while using narcotic medication, and advised not to use alcohol or any Illicit drugs while using the narcotis. understanding that lack of compliance with any of the above instructions, will likely to cause discharge from, the pain service, not to renew his narcotic prescriptions MAPS Reviwed and it was apropriate . Medication managements= patient will be given prescription refills for [place] 5/325 every 8 hours dispense 90 with 1 refill, Neurontin 400 mg 3 times a day dispense 90 with 1 refill and Flexeril 10 mg daily at bedtime dispense 30 with one refill Flow up in the pain clinic in 2 months. Urine drug screen ordered today - PQRS measures = - Patient's medications are documented in the chart. -Tobacco use is negative and counseling.Given. -Patient's has not received pneumococcal vaccine. -Advanced care planning discussed, patient not eligible. -Opiate contract signed. -Pain positive and follow-up visit/procedure is scheduled. -Patient's blood pressure measured [ 127/85] , and documented in the record ,and patient will follow up with the primary care. -Patient's weight was measured and body mass index [21.5 ] within the normal limits and counseling was done. and patient instructed to follow-up with the primary care physician. -Patient was not identified as an unhealthy alcohol user Time with Patient: Less than 30
== END | disposition home or self-care (01) ==
LOC: PNWHC3 07:33
PROVIDERS: ATTEND Specialist
DX: M96.1 Postlaminectomy syndrome, not elsewhere classified (principal); M47.816 Spondylosis without myelopathy or radiculopathy, lumbar region; M46.1 Sacroiliitis, not elsewhere classified; G89.29 Other chronic pain; Z79.891 Long term (current) use of opiate analgesic; Z79.899 Other long term (current) drug therapy
CPT/HCPCS: 80307; 99212; G0482

== ENCOUNTER → 2020-08-30 | Outpatient (CLI) | payer BC, OTHER ==
--- NOTE | 2020-08-30 07:52 | P.PAINPG ---
Subjective Progress Note Date: 08/30/20 This is follow-up visit for this 60 years old female, with a history of severe and chronic low back pain secondary to lumbar postlaminectomy pain syndrome. Lumbar spondylosis with lumbar facet arthropathy and left sacroiliitis, Received L lumbar RFA (03/2020, L L4-5 L5-1) several months ago with good pain relief. Pain is managed well with medication and interventional pain procedures (including L SIJ in the past). The patient currently on Neurontin 400 mg 3 times a day, [place] 5/325 every 8 hours when necessary, Flexeril 10 daily at bedtime when necessary Patient denies any side effect of the medication , patient denies any excessive drowsiness or sleepiness, patient denies any suicidal ideation,Patient reported that the current medication is helping to control the pain and improve the activity of daily livings,Patient reports no weakness in her left lower extremity, denies any change in the bowel movement or urination, patient denies any fever or night sweats. Review of systems is negative for chest pain, shortness of breath, new onset weakness, numbness/tingling, abdominal pain, malaise, fever, night sweats, chills, homicidal or suicidal ideation, or bowel or bladder incontinence. Objective - Exam -Constitutiona : Cooperative , not in acute distress . -HEENT : nech : supple , no Lymphadenopathy , normal thyroid size . eyes : no ptosis , no icterus, no photophobia . - neurologic : Cranial nerve II to XII intact , no focal neurological deffecit . -psychatric : alert , oriented X 3 , appropriate affect , intact judgment and insight . -Lymphatic : no Lymphadenopathy . - musculoskeltal : Lumber spine moter stegnth lower extremities ,thigh and legs 5/5 Right side , 5/5 Left side deep tendon reflexes : normal Knee Jerk , normal ankle Jerk positive lumber facet Loading Test Range of motion of the lumbar spine Flexion 30 degrees, extension 10 degrees strait leg raising test , positive at 60 degree Fabere test negative RT and negative LT . Assessment and Plan Plan: Assessment and plan= chronic low back pain secondary to lumbar failed back surgery syndrome , lumbar spondylosis with lumbar facet arthropathy . Left sacroiliitis had good pain relief after RFA of the medial branch lumbar area chronic and current use of high-risk medication (opioids) Patient denies any side effects of the current pain medication and the current treatment/medication helping the patient to do activity of daily living , Diagnoses, prognosis, treatment options, including but not limited to physical therapy, medication management, interventional therapies, and surgery, were discussed with the patient All the questions answered The narcotic consent was signed and patient agreed and understood the side effects and complications of opioid treatment. Patient signed the narcotic agreement, and was orally counseled, not to overuse, not to abuse, not to Divert , not tp sell pain medication, and to take it as prescribed only, Patient was counseled not to drive or operate heavy equipment while using narcotic medication, and advised not to use alcohol or any Illicit drugs while using the narcotis. understanding that lack of compliance with any of the above instructions, will likely to cause discharge from, the pain service, not to renew his narcotic prescriptions MAPS Reviwed and it was apropriate . Medication managements= patient will be given prescription refills for [place] 5/325 every 8 hours dispense 90 with 1 refill, Neurontin 400 mg 3 times a day dispense 90 with 1 refill and Flexeril 10 mg daily at bedtime dispense 30 with one refill Follow up in the pain clinic in 2 months. I spent 25 minutes on patient care today. The time was used to review medical records including relevant urine studies and prescription history (MAPs), review of the available imaging, evaluation and examination the patient, coordination of care at the medical staff and if applicable referring physicians, as well as creation of the medical record. - PQRS measures = - Patient's medications are documented in the chart. -Tobacco use is negative and counseling.Given. -Patient's has not received pneumococcal vaccine. -Advanced care planning discussed, patient not eligible. -Opiate contract signed. -Pain positive and follow-up visit/procedure is scheduled. -Patient's blood pressure measured [ 127/85] , and documented in the record ,and patient will follow up with the primary care. -Patient's weight was measured and body mass index [21.5 ] within the normal limits and counseling was done. and patient instructed to follow-up with the primary care physician. -Patient was not identified as an unhealthy alcohol user PQRS Measure Charge Sheet PQRS Narrative: Smoking Status Never smoker Narcotic Agreement Date Signed 07/22/19 Pain Intensity [Lower Back] 5 Hx Alcohol Use (MH) No Home Medications: Ambulatory Orders Calcium/Magnesium/Zinc [Mivpmct-Nosqutvxp-Qimd Tablet] 1 tab PO DAILY 10/22/13 Cranberry Conc/C/Bacill Coag [Cranberry Tablet] 1 cap PO DAILY 10/22/13 Multivitamin [Multivitamins] 1 tab PO DAILY 10/22/13 Cholecalciferol [Vitamin D3] 1,000 unit PO DAILY 07/04/15 Cyclobenzaprine [Flexeril] 10 mg PO HS PRN #30 tab 08/30/20 Gabapentin [Neurontin] 400 mg PO TID #90 cap 08/30/20 HYDROcodone/APAP 5-325MG [[place] 5-325] 1 each PO Q8H PRN 28 Days #70 tab 08/30/20 HYDROcodone/APAP 5-325MG [[place] 5] 1 each PO Q8HR PRN 28 Days #70 tab 08/30/20 Controlled Substance Measures - Controlled Substance Measures Is patient prescribed a controlled substance at discharge?: Yes When asked, does pt state using other controlled substances?: No If prescribed controlled substance>3 days was MAPS reviewed?: Yes If Rx opioid, was Start Talking consent form obtained?: Yes If opioid is for acute pain is fill amount 7 days or less?: No Was information provided regarding opioid addiction?: Yes
== END ==
CPT/HCPCS: 99211

== ENCOUNTER → 2020-10-25 | Outpatient (CLI) | payer BC, OTHER ==
--- NOTE | 2020-10-25 07:56 | P.PAINPG ---
Subjective Progress Note Date: 10/25/20 This is follow-up visit for this 60 years old female, with a history of severe and chronic low back pain secondary to lumbar postlaminectomy pain syndrome. Lumbar spondylosis with lumbar facet arthropathy and left sacroiliitis, Received L lumbar RFA (03/2020, L L4-5 L5-1) several months ago with good pain relief. Pain is managed well with medication and interventional pain procedures (including L SIJ in the past). Is doing well. She has gotten great relief from her radiofrequency ablation t hat she got last March and would like to repeat that again. currently on Neurontin 400 mg 3 times a day, [place] 5/325 every 8 hours when necessary, Flexeril 10 daily at bedtime when necessary Patient denies any side effect of the medication , patient denies any excessive drowsiness or sleepiness, patient denies any suicidal ideation,Patient reported that the current medication is helping to control the pain and improve the activity of daily livings,Patient reports no weakness in her left lower extremity, denies any change in the bowel movement or urination, patient denies any fever or night sweats. Review of systems is negative for chest pain, shortness of breath, new onset weakness, numbness/tingling, abdominal pain, malaise, fever, night sweats, chills, homicidal or suicidal ideation, or bowel or bladder incontinence. Objective - Exam -Constitutiona : Cooperative , not in acute distress . -HEENT : nech : supple , no Lymphadenopathy , normal thyroid size . eyes : no ptosis , no icterus, no photophobia . - neurologic : Cranial nerve II to XII intact , no focal neurological deffecit . -psychatric : alert , oriented X 3 , appropriate affect , intact judgment and insight . -Lymphatic : no Lymphadenopathy . - musculoskeltal : Lumber spine moter stegnth lower extremities ,thigh and legs 5/5 Right side , 5/5 Left side deep tendon reflexes : normal Knee Jerk , normal ankle Jerk positive lumber facet Loading Test on left side Range of motion of the lumbar spine Flexion 30 degrees, extension 10 degrees strait leg raising test , negative Fabere test negative RT and negative LT . Assessment and Plan Plan: Assessment and plan= chronic low back pain secondary to lumbar failed back surgery syndrome , lumbar spondylosis with lumbar facet arthropathy . Left sacroiliitis Has had good pain relief after RFA of the medial branch lumbar area chronic and current use of high-risk medication (opioids) Patient denies any side effects of the current pain medication and the current treatment/medication helping the patient to do activity of daily living , Diagnoses, prognosis, treatment options, including but not limited to physical therapy, medication management, interventional therapies, and surgery, were discussed with the patient All the questions answered The narcotic consent was signed and patient agreed and understood the side ef fects and complications of opioid treatment. Patient signed the narcotic agreement, and was orally counseled, not to overuse, not to abuse, not to Divert , not tp sell pain medication, and to take it as prescribed only, Patient was counseled not to drive or operate heavy equipment while using narcotic medication, and advised not to use alcohol or any Illicit drugs while using the narcotis. understanding that lack of compliance with any of the above instructions, will likely to cause discharge from, the pain service, not to renew his narcotic prescriptions MAPS Reviwed and it was apropriate . Scheduled her for left-sided L4-L5 and L5-S1 radio frequency ablation. Patient had this in March 2020 and got nearly on a percent relief. I also reviewed her urinary drug screen today which was accurate. Flexeril was not shown on UDS, however she only uses as needed and does not always use daily. Medication managements= patient will be given prescription refills for [place] 5/325 every 8 hours dispense 90 with 1 refill, Neurontin 400 mg 3 times a day dispense 90 with 1 refill and Flexeril 10 mg daily at bedtime dispense 30 with one refill Follow up for above procedure I spent 32 minutes on patient care today. The time was used to review medical records including relevant urine studies and prescription history (MAPs), review of the available imaging, evaluation and examination the patient, coordination of care at the medical staff and if applicable referring physicians, as well as creation of the medical record. - PQRS measures = - Patient's medications are documented in the chart. -Tobacco use is negative and counseling.Given. -Patient's has not received pneumococcal vaccine. -Advanced care planning discussed, patient not eligible. -Opiate contract signed. -Pain positive and follow-up visit/procedure is scheduled. -Patient's blood pressure measured [ 127/85] , and documented in the record ,and patient will follow up with the primary care. -Patient's weight was measured and body mass index [21.5 ] within the normal limits and counseling was done. and patient instructed to follow-up with the primary care physician. -Patient was not identified as an unhealthy alcohol user Objective - Vital Signs Vital signs: Intake & Output 10/23/20 10/24/20 10/24/20 18:59 06:59 18:59 Weight 69.4 kg PQRS Measure Charge Sheet PQRS Narrative: Smoking Status Never smoker Narcotic Agreement Date Signed 07/05/20 Pain Intensity [Lower Back] 5 Hx Alcohol Use (MH) No Home Medications: Ambulatory Orders Calcium/Magnesium/Zinc [Atxbrhp-Flpyeotle-Ejcf Tablet] 1 tab PO DAILY 10/22/13 Cranberry Conc/C/Bacill Coag [Cranberry Tablet] 1 cap PO DAILY 10/22/13 Multivitamin [Multivitamins] 1 tab PO DAILY 10/22/13 Cholecalciferol [Vitamin D3] 1,000 unit PO DAILY 07/04/15 Cyclobenzaprine [Flexeril] 10 mg PO HS PRN #30 tab 10/25/20 Gabapentin [Neurontin] 400 mg PO TID #90 cap 10/25/20 Gabapentin [Neurontin] 400 mg PO TID 30 Days #90 cap 10/25/20 HYDROcodone/APAP 5-325MG [[place] 5-325] 1 each PO Q8HR PRN 28 Days #70 tab 10/25/20 HYDROcodone/APAP 5-325MG [[place] 5] 1 each PO Q8HR PRN 28 Days #70 tab 10/25/20 Controlled Substance Measures - Controlled Substance Measures Is patient prescribed a controlled substance at discharge?: Yes When asked, does pt state using other controlled substances?: No If prescribed controlled substance>3 days was MAPS reviewed?: Yes If Rx opioid, was Start Talking consent form obtained?: Yes If opioid is for acute pain is fill amount 7 days or less?: No Was information provided regarding opioid addiction?: Yes
[2020-10-25 08:03] VITALS: BP 128/83; PULSE 84; RESP 18; TEMP 98
== END ==
LOC: PNWHC3 07:36
PROVIDERS: ATTEND Anesthesiology
DX: M96.1 Postlaminectomy syndrome, not elsewhere classified (principal); M47.816 Spondylosis without myelopathy or radiculopathy, lumbar region; M46.1 Sacroiliitis, not elsewhere classified; Z79.891 Long term (current) use of opiate analgesic
CPT/HCPCS: 99211

== ENCOUNTER 2020-12-01 06:04 | Day surgery (SDC) | payer BC, OTHER ==
[2020-11-30 08:06] VITALS: BMI 22.2
[2020-12-01 06:32] VITALS: TEMP 97.9
[2020-12-01] MEDS ORDERED: MIDAZOLAM 2 MG/2 ML VIAL ONE (06:59)
[2020-12-01] MEDS ORDERED: ROPIVACAINE 5MG/ML 20ML VIAL ONE (06:59)
[2020-12-01] MEDS ORDERED: methylPREDNISolone ACETATE 40 MG/ML 1 ML VIAL ONE (06:59)
[2020-12-01] MEDS ORDERED: fentaNYL (PF) 50 MCG/ML 2 ML AMP ONE (06:59)
--- NOTE | 2020-12-01 07:26 | P.PCN ---
Date of Procedure: 12/01/20 Procedure(s) Performed: PREOPERATIVE DIAGNOSIS: 1-Lumbar Spondylosis with Facet Arthropathy without myelopathy. POSTOPERATIVE DIAGNOSIS: 1- Lumbar Spondylosis with Facet Arthropathy without myelopathy. PROCEDURES : Left Radiofrequency thermocoagulation, L3 , L4 , and L5 medial branch, with fluoroscopic guidance (fluoroscopy images available in the radiology department) ( to denervate the facet joint at L4-5 ,and L5-S1 levels ). ANESTHESIA: monitored anesthesia care as per anesthesia department . EBL: Minimal PROCEDURE INDICATION: The patient with low back pain secondary to lumbar facet arthropathy who had more than 50% relief of her pain with previous diagnostic lumbar medial branch block with bupivacaine. PROCEDURE DESCRIPTION / TECHNIQUE: The patient was seen and identified in the preoperative area. Risks, benefits, complications, including but not limited to risk of infection ,bleeding , allergic reactions to the medications and no complete pain releife , and alternatives were discussed with the patient, the patient agreed to proceed with the procedure and signed the consent. IV was started. Vital signs remained stable throughout the procedure. Patient was taken to the OR and time out was completed. The patient was placed in the prone position on the procedure table. The lumber area was prepped and draped in the usual sterile fashion. . Vital signs were closely monitored during the procedure .IV sedation was used during the procedure to decrease patients anxiety. Using AP and then oblique fluoroscopy, the ``eye of the Ghassan dog corresponding to the connection between the superior and transverse articular processes of Left L3, L4, and L5 were identified, marked, and localized with 1% lidocaine. Subsequently, a 18 [id number] radiofrequency cannula with a 10-mm active tip was advanced guided by fluoroscopy to each of the``eyes of the Ghassan dog at Left L3, L4, and L5. Each site then underwent sensory testing at 50 Hz and 0 to 1 volt and motor testing at 2.5 Hz and 0 to 3 volt with local stimulation, but no radicular symptoms down the legs. Thereafter each sites underwent radiofrequency thermocoagulation at 80 degrees celsius for 90 seconds after injecting 0.5 ml of PF Ropivacaine 1ml, then after the thermocoagulation done , 1 ml of the block solution containing Depo-Medrol 40 mg and 3 ml of Ropivacaine 0.5% was injected at the Left L3 , L4 , and L5 , levels after negative aspiration of CSF and blood and with no paresthesias. Cannulas were retracted while injecting lidocaine 1% until the needle is out. At the end of the procedure, the skin was cleansed and bandages were applied. COMPLICATIONS: No acute complications. DISPOSITION / PLANS: The patient was placed in a supine position and transferred to the recovery area in a stable condition for observation and was discharged from the recovery room after meeting discharge criteria. Home discharge instructions given to the patient by the staff. The patient was reexamined prior to discharge. The patient will schedule a follow up in the clinic in 2-4 weeks.
[2020-12-01] MEDS ORDERED: IV FLUID CONTINUATION 1,000 ML IV ONE (07:28)
[2020-12-01 07:39] VITALS: RESP 20
--- NOTE | 2020-12-01 07:52 | FL ---
Fluoroscopy INDICATION: Pain FINDINGS: Fluoroscopy time: 4.3 seconds. Images obtained: 4. IMPRESSIONS: 1. Documentation of fluoroscopy.
[2020-12-01 07:54] VITALS: BP 112/74; PULSE 76
== END 2020-12-01 07:58 | disposition home or self-care (01) ==
LOC: ORPAIN 06:04
PROVIDERS: ATTEND Specialist
DX: M47.816 Spondylosis without myelopathy or radiculopathy, lumbar region (principal); Z88.5 Allergy status to narcotic agent; Z79.899 Other long term (current) drug therapy
CPT/HCPCS: 64635; 64636; J2250; J1030; J3010; J2795

== ENCOUNTER → 2020-12-18 | Outpatient (CLI) | payer BC, OTHER ==
[2020-12-18 08:00] VITALS: BP 116/75; PULSE 69; RESP 18; TEMP 98.2
--- NOTE | 2020-12-18 08:01 | P.PN ---
Subjective Progress Note Date: 12/18/20 This is follow-up visit for this 60 years old female, with a history of severe and chronic low back pain secondary to lumbar postlaminectomy pain syndrome. Lumbar spondylosis with lumbar facet arthropathy , and left sacroiliitis, status post left sided RFA of the medial branch area lumbar area, she get good pain relief from it, and her pain continued to be managed with pain medication management and interventional pain management The patient currently on Neurontin 400 mg 3 times a day, [place] 5/325 every 8 hours when necessary, Flexeril 10 daily at bedtime when necessary Patient denies any side effect of the medication , patient denies any excessive drowsiness or sleepiness, patient denies any suicidal ideation,Patient reported that the current medication is helping to control the pain and improve the activity of daily livings,Patient reports no weakness in her left lower extremity, denies any change in the bowel movement or urination, patient denies any fever or night sweats. Review of systems is negative for chest pain, shortness of breath, new onset weakness, numbness/tingling, abdominal pain, malaise, fever, night sweats, chills, homicidal or suicidal ideation, or bowel or bladder incontinence. Physical Examination -Constitutiona : Cooperative , not in acute distress . -HEENT : nech : supple , no Lymphadenopathy , normal thyroid size . eyes : no ptosis , no icterus, no photophobia . - neurologic : Cranial nerve II to XII intact , no focal neurological deffecit . -psychatric : alert , oriented X 3 , appropriate affect , intact judgment and insight . -Lymphatic : no Lymphadenopathy . - musculoskeltal : Lumber spine moter stegnth lower extremities ,thigh and legs 5/5 Right side , 5/5 Left side Assessment and plan= chronic low back pain secondary to lumbar failed back surgery syndrome , lumbar spondylosis with lumbar facet arthropathy . Left sacroiliitis Patient had good pain relief after RFA of the medial branch lumbar area chronic and current use of high-risk medication (opioids) Patient denies any side effects of the current pain medication and the current treatment/medication helping the patient to do activity of daily living , Diagnoses, prognosis, treatment options, including but not limited to physical therapy, medication management, interventional therapies, and surgery, were discussed with the patient All the questions answered The narcotic consent was signed and patient agreed and understood the side effects and complications of opioid treatment. Patient signed the narcotic agreement, and was orally counseled, not to overuse, not to abuse, not to Divert , not tp sell pain medication, and to take it as prescribed only, Patient was counseled not to drive or operate heavy equipment while using narcotic medication, and advised not to use alcohol or any Illicit drugs while using the narcotis. understanding that lack of compliance with any of the above instructions, will likely to cause discharge from, the pain service, not to renew his narcotic prescriptions MAPS Reviwed and it was apropriate . Medication managements= patient will be given prescription refills for [place] 5/325 every 8 hours dispense 90 with 1 refill, Neurontin 400 mg 3 times a day dispense 90 with 1 refill and Flexeril 10 mg daily at bedtime dispense 30 with one refill Flow up in the pain clinic in 2 months. - PQRS measures = - Patient's medications are documented in the chart. -Tobacco use is negative and counseling.Given. -Patient's has not received pneumococcal vaccine. -Advanced care planning discussed, patient not eligible. -Opiate contract signed. -Pain positive and follow-up visit/procedure is scheduled. -Patient's blood pressure measured [ 116/75] , and documented in the record ,and patient will follow up with the primary care. -Patient's weight was measured and body mass index [21.5 ] within the normal limits and counseling was done. and patient instructed to follow-up with the primary care physician. -Patient was not identified as an unhealthy alcohol user
== END ==
LOC: PNWHC3 07:37
PROVIDERS: ATTEND Specialist
DX: G89.29 Other chronic pain (principal); M96.1 Postlaminectomy syndrome, not elsewhere classified; M47.816 Spondylosis without myelopathy or radiculopathy, lumbar region; M46.1 Sacroiliitis, not elsewhere classified; Z79.891 Long term (current) use of opiate analgesic; Z88.5 Allergy status to narcotic agent
CPT/HCPCS: 99211

== ENCOUNTER → 2021-02-12 | Outpatient (CLI) | payer BC, OTHER ==
--- NOTE | 2021-02-12 07:38 | P.PAINPG ---
Subjective Progress Note Date: 02/12/21 This is follow-up visit for this 60 years old female, with a history of severe and chronic low back pain secondary to lumbar postlaminectomy pain syndrome. Lumbar spondylosis with lumbar facet arthropathy , and left sacroiliitis, status post left sided RFA of the medial branch area lumbar area, she get good pain relief from it, and her pain continued to be managed with pain medication management and interventional pain management. Overall no major changes in her health, happy with her regimen of medications and interventional procedures. The patient currently on Neurontin 400 mg 3 times a day, [place] 5/325 every 8 hours when necessary, Flexeril 10 daily at bedtime when necessary Patient denies any side effect of the medication , patient denies any excessive drowsiness or sleepiness, patient denies any suicidal ideation,Patient reported that the current medication is helping to control the pain and improve the activity of daily livings,Patient reports no weakness in her left lower extremity, denies any change in the bowel movement or urination, patient denies any fever or night sweats. Review of systems is negative for chest pain, shortness of breath, new onset weakness, numbness/tingling, abdominal pain, malaise, fever, night sweats, chills, homicidal or suicidal ideation, or bowel or bladder incontinence. Physical Examination -Constitutiona : Cooperative , not in acute distress . -HEENT : nech : supple , no Lymphadenopathy , normal thyroid size . eyes : no ptosis , no icterus, no photophobia . - neurologic : Cranial nerve II to XII intact , no focal neurological deffecit . -psychatric : alert , oriented X 3 , appropriate affect , intact judgment and insight . -Lymphatic : no Lymphadenopathy . - musculoskeltal : Lumber spine moter stegnth lower extremities ,thigh and legs 5/5 Right side , 5/5 Left side Assessment and plan= chronic low back pain secondary to lumbar failed back surgery syndrome , lumbar spondylosis with lumbar facet arthropathy . Left sacroiliitis Patient had good pain relief after RFA of the medial branch lumbar area chronic and current use of high-risk medication (opioids) Patient denies any side effects of the current pain medication and the current treatment/medication helping the patient to do activity of daily living , Diagnoses, prognosis, treatment options, including but not limited to physical therapy, medication management, interventional therapies, and surgery, were discussed with the patient All the questions answered The narcotic consent was signed and patient agreed and understood the side effects and complications of opioid treatment. Patient signed the narcotic agreement, and was orally counseled, not to overuse, not to abuse, not to Divert , not tp sell pain medication, and to take it as prescribed only, Patient was counseled not to drive or operate heavy equipment while using narcotic medication, and advised not to use alcohol or any Illicit drugs while using the narcotis. understanding that lack of compliance with any of the above instructions, will likely to cause discharge from, the pain service, not to renew his narcotic prescriptions MAPS Reviwed and it was apropriate . Medication managements= patient will be given prescription refills for [place] 5/325 every 8 hours dispense 90 with 1 refill, Neurontin 400 mg 3 times a day dispense 90 with 1 refill and Flexeril 10 mg daily at bedtime dispense 30 with one refill Follow up in the pain clinic in 2 months. We will perform UDS today due to her chronic opiate use and to ensure medication compliance. I have spent 25 minutes on patient care today. The time was used to review the medical records including relevant urine studies and prescription history, review of the available imaging, evaluation and examination of the patient, coordination of care with the medical staff and if applicable referring physicians, as well as creation of the medical record. PQRS Measure Charge Sheet PQRS Narrative: Smoking Status Never smoker Narcotic Agreement Date Signed 07/05/20 Pain Intensity [Lower Back] 3 Scale Used Numeric (1 - 10) Hx Alcohol Use (MH) No Home Medications: Ambulatory Orders Calcium/Magnesium/Zinc [Iisjvob-Eofjyuzeg-Icbf Tablet] 1 tab PO DAILY 10/22/13 Cranberry Conc/C/Bacill Coag [Cranberry Tablet] 1 cap PO DAILY 10/22/13 Multivitamin [Multivitamins] 1 tab PO DAILY 10/22/13 Cholecalciferol [Vitamin D3] 1,000 unit PO DAILY 07/04/15 Cyclobenzaprine [Flexeril] 10 mg PO HS PRN #30 tab 02/12/21 Gabapentin [Neurontin] 400 mg PO TID #90 cap 02/12/21 HYDROcodone/APAP 5-325MG [[place] 5-325] 1 each PO Q8HR PRN 28 Days #70 tab 02/12/21 HYDROcodone/APAP 5-325MG [[place] 5] 1 each PO Q8HR PRN 28 Days #70 tab 02/12/21 Controlled Substance Measures - Controlled Substance Measures Is patient prescribed a controlled substance at discharge?: Yes When asked, does pt state using other controlled substances?: No If prescribed controlled substance>3 days was MAPS reviewed?: Yes If Rx opioid, was Start Talking consent form obtained?: Yes If opioid is for acute pain is fill amount 7 days or less?: No Was information provided regarding opioid addiction?: No
[2021-02-12 07:39] VITALS: BP 149/87; PULSE 66; RESP 18; TEMP 98.2
== END | disposition home or self-care (01) ==
LOC: PNWHC3 07:26
PROVIDERS: ATTEND Anesthesiology
DX: M47.896 Other spondylosis, lumbar region (principal); M46.96 Unspecified inflammatory spondylopathy, lumbar region; M46.1 Sacroiliitis, not elsewhere classified
CPT/HCPCS: 80307; 99212; G0482

== ENCOUNTER → 2021-04-09 | Outpatient (CLI) | payer BC, OTHER ==
--- NOTE | 2021-04-09 07:37 | P.PN ---
Subjective Progress Note Date: 04/09/21 This is follow-up visit for this 61 years old female, with a history of severe and chronic low back pain secondary to lumbar postlaminectomy pain syndrome. Lumbar spondylosis with lumbar facet arthropathy , and left sacroiliitis, November 2020 we have done , left sided RFA of the medial branch area lumbar area, she get good pain relief from it, and her pain continued to be managed with pain medication management, and interventional pain management The patient currently on Neurontin 400 mg 3 times a day, [place] 5/325 every 8 hours when necessary, Flexeril 10 daily at bedtime when necessary Patient denies any side effect of the medication , patient denies any excessive drowsiness or sleepiness, patient denies any suicidal ideation,Patient reported that the current medication is helping to control the pain and improve the activity of daily livings,Patient reports no weakness in her left lower extremity, denies any change in the bowel movement or urination, patient denies any fever or night sweats. Review of systems is negative for chest pain, shortness of breath, new onset weakness, numbness/tingling, abdominal pain, malaise, fever, night sweats, chills, homicidal or suicidal ideation, or bowel or bladder incontinence. Physical Examination -Constitutiona : Cooperative , not in acute distress . -HEENT : nech : supple , no Lymphadenopathy , normal thyroid size . eyes : no ptosis , no icterus, no photophobia . - neurologic : Cranial nerve II to XII intact , no focal neurological deffecit . -psychatric : alert , oriented X 3 , appropriate affect , intact judgment and insight . -Lymphatic : no Lymphadenopathy . - musculoskeltal : Lumber spine moter stegnth lower extremities ,thigh and legs 5/5 Right side , 5/5 Left side Assessment and plan= chronic low back pain secondary to lumbar failed back surgery syndrome , lumbar spondylosis with lumbar facet arthropathy . Left sacroiliitis Patient had good pain relief after RFA of the medial branch lumbar area chronic and current use of high-risk medication (opioids) Patient denies any side effects of the current pain medication and the current treatment/medication helping the patient to do activity of daily living , Diagnoses, prognosis, treatment options, including but not limited to physical therapy, medication management, interventional therapies, and surgery, were discussed with the patient All the questions answered The narcotic consent was signed and patient agreed and understood the side effects and complications of opioid treatment. Patient signed the narcotic agreement, and was orally counseled, not to overuse, not to abuse, not to Divert , not tp sell pain medication, and to take it as prescribed only, Patient was counseled not to drive or operate heavy equipment while using narcotic medication, and advised not to use alcohol or any Illicit drugs while using the narcotis. understanding that lack of compliance with any of the above instructions, will likely to cause discharge from, the pain service, not to renew his narcotic prescriptions MAPS Reviwed and it was apropriate . Medication managements= patient will be given prescription refills for [place] 5/325 every 8 hours dispense 90 with 1 refill, Neurontin 400 mg 3 times a day dispense 90 with 1 refill ,and Flexeril 10 mg daily at bedtime dispense 30 with one refill Flow up in the pain clinic in 2 months. - PQRS measures = - Patient's medications are documented in the chart. -Tobacco use is negative and counseling.Given. -Patient's has not received pneumococcal vaccine. -Advanced care planning discussed, patient not eligible. -Opiate contract signed. -Pain positive and follow-up visit/procedure is scheduled. -Patient's blood pressure measured [ 128/77] , and documented in the record ,and patient will follow up with the primary care. -Patient's weight was measured and body mass index [21.5 ] within the normal limits and counseling was done. and patient instructed to follow-up with the primary care physician. -Patient was not identified as an unhealthy alcohol user
[2021-04-09 07:44] VITALS: BP 128/77; PULSE 79; RESP 18; TEMP 98.5
== END | disposition home or self-care (01) ==
LOC: PNWHC3 07:23
PROVIDERS: ATTEND Specialist
DX: G89.29 Other chronic pain (principal); M54.5 Low back pain
CPT/HCPCS: 99211

== ENCOUNTER → 2021-06-04 | Outpatient (CLI) | payer BC, OTHER ==
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
[2021-06-04 07:56] VITALS: BP 130/81; PULSE 74; RESP 18; TEMP 97.7
== END | disposition home or self-care (01) ==
LOC: PNWHC3 07:19
DX: M47.816 Spondylosis without myelopathy or radiculopathy, lumbar region (principal)
CPT/HCPCS: 99211

== ENCOUNTER → 2021-07-30 | Outpatient (CLI) | payer BC, OTHER ==
--- NOTE | 2021-07-30 07:55 | P.PN ---
Subjective Progress Note Date: 07/30/21 Principal diagnosis: A 61 yr old female with a history of severe and chronic low back pain secondary to lumbar degenerative disc diseases and lumbar spondylosis with facet arthropathy presents today for education refills. She is scheduled for a lumbar RFA in 4 days. She states her pain level is 4 out of 10 intensity, dull and achy in the lumbar spine and radiating tingling and numbness down the left lower extremity. Pain is provoked by palpation, lifting, and bending. Pain is alleviated with medications, topical Aspercreme, injections, heat, physical therapy, home exercise regimen, TENS unit use and rest. Interventional pain procedures completed include bilateral lumbar facet block medial branches Patient is currently on Sabine, Neurontin Flexeril Patient denies any side effects of the medication(s), denies excessive drowsiness or sleepiness, denies suicidal ideation and reports that the current pain medication is helping to control the pain and improve activities of daily living. Patient denies any motor or sensory deficits. Patient denies any fever or night sweats, denies any change in the bowel movements or urination. Physical Examination: -Constitutional: Cooperative. Not in acute distress . -HEENT: Neck is supple. No lymphadenopathy. No thyromegaly. Normal thyroid size. Eyes: No ptosis , no icterus, no photophobia. ENT: No auditory deficits. Normal oropharynx. No Thrush. - Respiratory: Chest clear to auscultations bilaterally. No wheezing. No rhonchi. - Cardiovascular: Regular rate and rhythm. S1 / S2 , no S3 , no S4. - Gastrointestinal: Abdomen soft no tenderness. Bowel sounds positive in all four quadrants. No organomegaly. - Genitourinary: Deferred. - Neurologic: Cranial nerve II to XII intact. No focal neurological deficits. - Psychatric: Alert & oriented x 3. Matching mood & appropriate affect. Judgment and insight intact. - Lymphatic: No Lymphadenopathy. - Musculoskeletal: Cervical spine: Muscle bulk/ tone/ strength in the bilateral upper extremities normal. Facet loading test cervical area positive. Lumbar spine: Motor bulk/ tone/ strength lower extremities , thigh and legs : 5/5 Deep tendon reflexes : Normal Knee Jerk. Normal Ankle Jerk . Vertebral body tenderness over the L4, L5 and S1 Lumbar Facet Loading Test positive Straight Leg Raise: positive at 30 degree right side/ left side Santana test: positive right side / left side Range of motion: Range of motion in flexion of the lumbar spine <90 degrees Range of motion: Extension of the lumbar spine <20 degrees Severe tenderness over the Sacroiliac joint: right side / left side Assessment and plan: Chronic low back pain secondary to lumbar degenerative disc disease , lumbar spondylosis with facet arthropathy without myelopathy Urine collected for UDS Opiate agreement renewed today Chronic and current use of high-risk medication (Opioids). The patient was counseled about risk of opioid use, psychological risk associated with opioids and was orally counseled to not overuse , divert or sell medications. Pt is to store medication in a safe location. The patient is counseled against driving while using narcotic medications and also not to use alcohol or any illicit recreational drugs. Patient verbalized understanding that the lack of compliance will result in failure to renew narcotic prescription(s) as well as possible discharge from the clinic Diagnoses, prognosis and treatment options including but not limited to physical therapy, surgical interventions, interventional therapies and medication management including narcotics and adjuvant medication were discussed. All patient questions answered MAPS reviewed and it was appropriate. Prescription refill for Sabine 5/325mg #70 with 1 refill, Neurontin 400mg TID #90 with refill, Flexeril prn I have spent 31 minutes on patient care today. Dr Molina was available by phone for the evaluation of this patient. The time was used to review the medica l records including relevant urine studies and Prescription history (MAPs), review of the available imaging, evaluation and examination of the patient, coordination of care with the medical staff and if applicable referring physicians, as well as creation of the medical record PQRS Measure Charge Sheet PQRS Narrative: Smoking Status Never smoker Narcotic Agreement Date Signed 07/05/20 Pain Intensity [Lower Back] 6 Hx Alcohol Use (MH) No Home Medications: Ambulatory Orders Calcium/Magnesium/Zinc [Ralbpiz-Rctfpmccm-Lcoz Tablet] 1 tab PO DAILY 10/22/13 Cranberry Conc/C/Bacill Coag [Cranberry Tablet] 1 cap PO DAILY 10/22/13 Multivitamin [Multivitamins] 1 tab PO DAILY 10/22/13 Cholecalciferol [Vitamin D3] 1,000 unit PO DAILY 07/04/15 Cyclobenzaprine [Flexeril] 10 mg PO HS PRN #30 tab 04/09/21 Gabapentin [Neurontin] 400 mg PO TID #90 cap 04/09/21 HYDROcodone/APAP 5-325MG [Sabine 5-325] 1 each PO Q8HR PRN 28 Days #70 tab 04/09/21
[2021-07-30 08:00] VITALS: BP 135/84; PULSE 82; RESP 18; TEMP 97.9
== END | disposition home or self-care (01) ==
LOC: PNWHC3 07:24
PROVIDERS: ATTEND Physician Assistant Medical
DX: M50.30 Other cervical disc degeneration, unspecified cervical region (principal); M46.96 Unspecified inflammatory spondylopathy, lumbar region; M47.896 Other spondylosis, lumbar region
CPT/HCPCS: 80307; 99212; G0482

== ENCOUNTER → 2021-08-22 | Outpatient (CLI) | payer BC, OTHER ==
--- NOTE | 2021-08-22 08:11 | P.PN ---
Subjective Progress Note Date: 08/22/21 Principal diagnosis: A 61 yr old female with a history of severe and chronic low back pain secondary to lumbar degenerative disc diseases and lumbar spondylosis with facet arthropathy presents today for evaluation status post left L4-L5, L5-S1 RFA. Patient states she explains 50% pain relief status post procedure. Pain level is currently at 4 out of 10 in intensity, throbbing in the left aspect of the lumbar spine with shooting pain down the left lower extremity. Pain is provoked by standing for 30 minutes or walking for 10 minutes or more. Pain is alleviated with medications, topicals, injections, heat, hot showers, physical therapy in the past, repositioning, massage therapy and rest. Interventional pain procedures completed include left RFA L4-L5, L5-S1 Patient is currently on Weed, Neurontin, Flexeril Patient denies any side effects of the medication(s), denies excessive drowsiness or sleepiness, denies suicidal ideation and reports that the current pain medication is helping to control the pain and improve activities of daily living. Patient denies any motor or sensory deficits. Patient denies any fever or night sweats, denies any change in the bowel movements or urination. Physical Examination: -Constitutional: Cooperative. Not in acute distress . -HEENT: Neck is supple. No lymphadenopathy. No thyromegaly. Normal thyroid size. Eyes: No ptosis , no icterus, no photophobia. ENT: No auditory deficits. Normal oropharynx. No Thrush. - Respiratory: Chest clear to auscultations bilaterally. No wheezing. No rhonchi. - Cardiovascular: Regular rate and rhythm. S1 / S2 , no S3 , no S4. - Gastrointestinal: Abdomen soft no tenderness. Bowel sounds positive in all four quadrants. No organomegaly. - Genitourinary: Deferred. - Neurologic: Cranial nerve II to XII intact. No focal neurological de ficits. - Psychatric: Alert & oriented x 3. Matching mood & appropriate affect. Judgment and insight intact. - Lymphatic: No Lymphadenopathy. - Musculoskeletal: Cervical spine: Muscle bulk/ tone/ strength in the bilateral upper extremities normal. Facet loading test cervical area positive. Lumbar spine: Motor bulk/ tone/ strength lower extremities , thigh and legs : 5/5 Deep tendon reflexes : Normal Knee Jerk. Normal Ankle Jerk . Vertebral body tenderness to palpation over Lumbar Facet Loading Test positive over left L4-L5, L5-S1 with mild paraspinal muscle spasms Straight Leg Raise: positive at 30 degrees right side/ left side Gaenslen's Test positive Sacral spine : Severe tenderness over the Sacroiliac joint: right side / left side Range of motion: Flexion of the lumbar spine <60 degrees Range of motion: Extension of the lumbar spine <20 degrees Gaenslen's Test positive Santana test: positive right side / left side Assessment and plan: Chronic low back pain secondary to lumbar degenerative disc disease , lumbar spondylosis with facet arthropathy without myelopathy Patient may return to office for an evaluation on as needed basis All patient questions answered MAPS reviewed and it was appropriate. Patient is not due for prescription refills at this time. I have spent 31 minutes on patient care today. Dr Molina was available by phone for the evaluation of this patient. The time was used to review the medical records including relevant urine studies and Prescription history (MAPs), review of the available imaging, evaluation and examination of the patient, coordination of care with the medical staff and if applicable referring physicians, as well as creation of the medical record PQRS Measure Charge Sheet PQRS Narrative: Smoking Status Never smoker Narcotic Agreement Date Signed 07/30/21 Hx Alcohol Use (MH) No Home Medications: Ambulatory Orders Calcium/Magnesium/Zinc [Nvawzpf-Akdlpyyys-Mzbx Tablet] 1 tab PO DAILY 10/22/13 Cranberry Conc/C/Bacill Coag [Cranberry Tablet] 1 cap PO DAILY 10/22/13 Multivitamin [Multivitamins] 1 tab PO DAILY 10/22/13 Cholecalciferol [Vitamin D3] 1,000 unit PO DAILY 07/04/15 Cyclobenzaprine [Flexeril] 10 mg PO HS PRN #30 tab 07/30/21 Gabapentin [Neurontin] 400 mg PO TID #90 cap 07/30/21 HYDROcodone/APAP 5-325MG [Weed 5-325] 1 tab PO Q8HR PRN 30 Days #70 tab 07/30/21 Cyanocobalamin (Vitamin B-12) [Vitamin B-12] 1,000 mcg PO DAILY 08/01/21
[2021-08-22 10:42] VITALS: BP 140/88; PULSE 79; RESP 18; TEMP 98.1
== END | disposition home or self-care (01) ==
LOC: PNWHC3 07:35
PROVIDERS: ATTEND Physician Assistant Medical
DX: M47.896 Other spondylosis, lumbar region (principal); M51.36 Other intervertebral disc degeneration, lumbar region
CPT/HCPCS: 99211

== ENCOUNTER → 2021-09-24 | Outpatient (CLI) | payer BC, OTHER ==
[2021-09-24 07:52] VITALS: BP 128/81; PULSE 67; RESP 18; TEMP 98.2
--- NOTE | 2021-09-24 08:05 | P.PN ---
Subjective Progress Note Date: 09/24/21 Principal diagnosis: A 61 yr old female with a history of severe and chronic low back pain secondary to lumbar degenerative disc diseases and lumbar spondylosis with facet arthropathy presents today for evaluation status post bilateral lumbar RFA and medication refills. Pain level is 5 out of 10 in intensity, stabbing, pressure, ache-type sensation in the lower aspects of her lumbar spine with radiation of pain left and right of midline "like a belt". She no longer has radiation of pain down the lower extremities since the RFA. Pain is provoked by twisting and lifting. Pain is alleviated with medications, topicals, injections, physical therapy in the past, massage, heat and rest. Discussed abnormality and UDS including elevated ETG level. Patient pulled out of her pocket Listerine strips and states that she uses mouthwash regularly. Listerine is documented to produce ETG results in urine UDS. Interventional pain procedures completed include lumbar RFA Patient is currently on [place] 5/325 #70 and Neurontin 400 mg #90 Patient denies any side effects of the medication(s), denies excessive drowsiness or sleepiness, denies suicidal ideation and reports that the current pain medication is helping to control the pain and improve activities of daily living. Patient denies any motor or sensory deficits. Patient denies any fever or night sweats, denies any change in the bowel movements or urination. Physical Examination: -Constitutional: Cooperative. Not in acute distress . -HEENT: Neck is supple. No lymphadenopathy. No thyromegaly. Normal thyroid size. Eyes: No ptosis , no icterus, no photophobia. ENT: No auditory deficits. Normal oropharynx. No Thrush. - Respiratory: Chest clear to auscultations bilaterally. No wheezing. No rhonchi. - Cardiovascular: Regular rate and rhythm. S1 / S2 , no S3 , no S4. - Gastrointestinal: Abdomen soft no tenderness. Bowel sounds positive in all four quadrants. No organomegaly. - Genitourinary: Deferred. - Neurologic: Cranial nerve II to XII intact. No focal neurological deficits. - Psychatric: Alert & oriented x 3. Matching mood & appropriate affect. Judgment and insight intact. - Lymphatic: No Lymphadenopathy. - Musculoskeletal: Cervical spine: Muscle bulk/ tone/ strength in the bilateral upper extremities normal. Facet loading test cervical area positive. Lumbar spine: Motor bulk/ tone/ strength lower extremities , thigh and legs : 5/5 Deep tendon reflexes : Normal Knee Jerk. Normal Ankle Jerk . Vertebral body tenderness to palpation over L5, L6 Lumbar Facet Loading Test positive Straight Leg Raise: positive at 30 degrees right side/ left side Gaenslen's Test positive Sacral spine : Severe tenderness over the Sacroiliac joint: right side / left side Range of motion: Flexion of the lumbar spine <60 degrees Range of motion: Extension of the lumbar spine <20 degrees Gaenslen's Test positive Santana test: positive right side / left side Assessment and plan: Chronic low back pain secondary to lumbar degenerative disc disease , lumbar spondylosis with facet arthropathy without myelopathy Recommendation of LESI L5 L6. Risks, benefits of procedure discussed and patient verbalized understanding. Denies anticoagulant use. Denies medical history of diabetes. Chronic and current use of high-risk medication (Opioids). The patient was counseled about risk of opioid use, psychological risk associated with opioids and was orally counseled to not overuse , divert or sell medications. Pt is to store medication in a safe location. The patient is counseled against driving while using narcotic medications and also not to use alcohol or any illicit recreational drugs. Patient verbalized understanding that the lack of compliance will result in failure to renew narcotic prescription(s) as well as possible discharge from the clinic Diagnoses, prognosis and treatment options including but not limited to physical therapy, surgical interventions, interventional therapies and medication management including narcotics and adjuvant medication were discussed. All patient questions answered MAPS reviewed and it was appropriate. UDS from 07/30/21 reviewed and consistent Prescription refill for [place] 5/325 #70, Neurontin 400 mg #90 with 1 refill I have spent 31 minutes on patient care today. Dr oMlina was available by phone for the evaluation of this patient. The time was used to review the medical records including relevant urine studies and Prescription history (MAPs), review of the available imaging, evaluation and examination of the patient, coordination of care with the medical staff and if applicable referring physicians, as well as creation of the medical record Objective - Vital Signs Vital signs: Vital Signs Temp 98.2 F 09/24/21 07:44 Pulse 67 09/24/21 07:44 Resp 18 09/24/21 07:44 BP 128/81 09/24/21 07:44 Pulse Ox 97 09/24/21 07:44 PQRS Measure Charge Sheet Mode of Arrival: Ambulatory - Pain Location Lower Back Non-Pharmacological Interventions: Heat, Home Exercise, Inactivity, Massage, Physical Therapy, Sitting, Stretching Pharmacological Interventions: Block, Epidural, PRN Medication, Scheduled Medication PQRS Narrative: Smoking Status Never smoker Narcotic Agreement Date Signed 07/30/21 Blood Pressure 128/81 Pain Intensity [Lower Back] 5 Scale Used Numeric (1 - 10) Hx Alcohol Use (MH) No Home Medications: Ambulatory Orders Calcium/Magnesium/Zinc [Kedrisa-Hxnoacmnd-Ibdi Tablet] 1 tab PO DAILY 10/22/13 Cranberry Conc/C/Bacill Coag [Cranberry Tablet] 1 cap PO DAILY 10/22/13 Multivitamin [Multivitamins] 1 tab PO DAILY 10/22/13 Cholecalciferol [Vitamin D3] 1,000 unit PO DAILY 07/04/15 Cyclobenzaprine [Flexeril] 10 mg PO HS PRN #30 tab 07/30/21 Cyanocobalamin (Vitamin B-12) [Vitamin B-12] 1,000 mcg PO DAILY 08/01/21 Gabapentin [Neurontin] 400 mg PO TID 30 Days #90 cap 09/24/21 HYDROcodone/APAP 5-325MG [[place] 5-325] 1 tab PO Q8HR PRN 30 Days #70 tab 09/24/21 HYDROcodone/APAP 5-325MG [[place] 5-325] 1 tab PO Q8HR PRN 30 Days #70 tab 09/24/21
== END | disposition home or self-care (01) ==
LOC: PNWHC3 07:22
PROVIDERS: ATTEND Specialist
DX: M47.896 Other spondylosis, lumbar region (principal); M51.36 Other intervertebral disc degeneration, lumbar region
CPT/HCPCS: 99211

== ENCOUNTER → 2021-11-15 | Outpatient (CLI) | payer BC, OTHER ==
--- NOTE | 2021-11-15 08:03 | P.PN ---
Subjective Progress Note Date: 11/15/21 Principal diagnosis: A 61 yr old female with a history of severe and chronic low back pain secondary to lumbar degenerative disc diseases and lumbar spondylosis with facet arthropathy presents today for medication refills. Pain level is currently at 6 out of 10 in intensity, dull, achy in the left aspect of the lower lumbar spine with radiation of tingling and numbness down the left lower extremity. Pain is provoked by lifting, bending and twisting. Pain is alleviated with medications, topicals, injections, heat, chiropractic treatments "a long time ago," repositioning and rest. Patient states her was recently diagnosed with cancer and she would like to put off any procedures at this time. Patient is currently on [place] 5/325#70, Neurontin 400 mg #90, Flexeril 5 mg #30. Patient denies any side effects of the medication(s), denies excessive drowsiness or sleepiness, denies suicidal ideation and reports that the current pain medication is helping to control the pain and improve activities of daily living. Patient denies any motor or sensory deficits. Patient denies any fever or night sweats, denies any change in the bowel movements or urination. Physical Examination: -Constitutional: Cooperative. Not in acute distress . -HEENT: Neck is supple. No lymphadenopathy. No thyromegaly. Normal thyroid size. Eyes: No ptosis , no icterus, no photophobia. ENT: No auditory deficits. Normal oropharynx. No Thrush. - Respiratory: Chest clear to auscultations bilaterally. No wheezing. No rhonchi. - Cardiovascular: Regular rate and rhythm. S1 / S2 , no S3 , no S4. - Gastrointestinal: Abdomen soft no tenderness. Bowel sounds positive in all four quadrants. No organomegaly. - Genitourinary: Deferred. - Neurologic: Cranial nerve II to XII intact. No focal neurological deficits. - Psychatric: Alert & oriented x 3. Matching mood & appropriate affect. Judgment and insight intact. - Lymphatic: No Lymphadenopathy. - Musculoskeletal: Cervical spine: Muscle bulk/ tone/ strength in the bilateral upper extremities normal Vertebral body tenderness to palpation over Facet loading test positive Thoracic spine Muscle bulk / tone/ strength in the bilateral paraspinal muscles normal Vertebral body tender to palpation over Facet loading test positive Lumbar spine: Motor bulk/ tone/ strength lower extremities , thigh and legs : 5/5 Deep tendon reflexes : Normal Knee Jerk. Normal Ankle Jerk . Vertebral body tenderness to palpation over L4, L5 Lumbar Facet Loading Test positive Straight Leg Raise: positive at 30 degrees right side/ left side Gaenslen's Test positive Sacral spine : Severe tenderness over the Sacroiliac joint: right side / left side Range of motion: Flexion of the lumbar spine <60 degrees Range of motion: Extension of the lumbar spine <20 degrees Gaenslen's Test positive Colby's Test positive Santana test: positive right side / left side Thigh Thrust Test Sacral Thrust Test Assessment and plan: Chronic low back pain secondary to lumbar degenerative disc disease , lumbar spondylosis with facet arthropathy without myelopathy Chronic and current use of high-risk medication (Opioids). The patient was counseled about risk of opioid use, psychological risk associated with opioids and was orally counseled to not overuse , divert or sell medications. Pt is to store medication in a safe location. The patient is counseled against driving while using narcotic medications and also not to use alcohol or any illicit recreational drugs. Patient verbalized understanding that the lack of compliance will result in failure to renew narcotic prescription(s) as well as possible discharge from the clinic Diagnoses, prognosis and treatment options including but not limited to physical therapy, surgical interventions, interventional therapies and medication management including narcotics and adjuvant medication were discussed. All patient questions answered MAPS reviewed and it was appropriate. UDS from July 2021 reviewed and consistent. Prescription refill for [place] 5/325#70, Neurontin 400 mg #90, Flexeril 5 mg #30 with 1 refill I have spent 31 minutes on patient care today. Dr Molina was available by phone for the evaluation of this patient. The time was used to review the medical records including relevant urine studies and Prescription history (MAPs), review of the available imaging, evaluation and examination of the patient, coordination of care with the medical staff and if applicable referring physicians, as well as creation of the medical record PQRS Measure Charge Sheet PQRS Narrative: Smoking Status Never smoker Narcotic Agreement Date Signed 07/30/21 Hx Alcohol Use (MH) No Home Medications: Ambulatory Orders Calcium/Magnesium/Zinc [Bdgevlv-Iwlwtvnxn-Hbmg Tablet] 1 tab PO DAILY 10/22/13 Cranberry Conc/C/Bacill Coag [Cranberry Tablet] 1 cap PO DAILY 10/22/13 Multivitamin [Multivitamins] 1 tab PO DAILY 10/22/13 Cholecalciferol [Vitamin D3] 1,000 unit PO DAILY 07/04/15 Cyanocobalamin (Vitamin B-12) [Vitamin B-12] 1,000 mcg PO DAILY 08/01/21 Cyclobenzaprine [Flexeril] 10 mg PO HS PRN 30 Days #30 tab 11/15/21 Gabapentin [Neurontin] 400 mg PO TID 30 Days #90 cap 11/15/21 HYDROcodone/APAP 5-325MG [[place] 5-325] 1 tab PO Q8HR PRN 30 Days #70 tab 11/15/21 HYDROcodone/APAP 5-325MG [[place] 5-325] 1 tab PO Q8HR PRN 30 Days #70 tab 11/15/21
[2021-11-15 08:14] VITALS: BP 131/86; PULSE 84; RESP 16; TEMP 98.1
== END | disposition home or self-care (01) ==
LOC: PNWHC3 07:38
PROVIDERS: ATTEND Specialist
DX: M47.896 Other spondylosis, lumbar region (principal); M51.36 Other intervertebral disc degeneration, lumbar region
CPT/HCPCS: 99211

== ENCOUNTER → 2022-01-14 | Outpatient (CLI) | payer BC, OTHER ==
[2022-01-14 07:55] VITALS: BP 131/77; PULSE 77; RESP 18; TEMP 98.2
--- NOTE | 2022-01-14 08:03 | P.PAINPG ---
PQRS Measure Charge Sheet Comment: A 61 yr old female with a history of severe and chronic low back pain secondary to lumbar degenerative disc diseases and lumbar spondylosis with facet arthropathy presents today for medication refills. Pain level is 5/10 in intensity but escalates as high as 10/10 with provocation. Pain is burning stinging in character localized to the lower aspects of her lumbar spine without radiation of pain. Pain is provoked by weight bearing activities. Pain is alleviated with PT in 2019, massage therapy in the past. home exercise regimen, medications ([place], Neurontin), repositioning and rest. Interventional pain procedures completed include JOSEI Patient is currently on [place] 5/325mg #70, Neurontin 400mg #90 Patient denies any side effects of the medication(s), denies excessive drowsiness or sleepiness, denies suicidal ideation and reports that the current pain medication is helping to control the pain and improve activities of daily living. Patient denies any motor or sensory deficits. Patient denies any fever or night sweats, denies any change in the bowel movements or urination. Physical Examination: -Constitutional: Cooperative. Not in acute distress . - Neurologic: Cranial nerve II to XII intact. No focal neurological deficits. - Psychatric: Alert & oriented x 3. Matching mood & appropriate affect. Judgment and insight intact. - Musculoskeletal: Cervical spine: Muscle bulk/ tone/ strength in the bilateral upper extremities normal Vertebral body tenderness to palpation over Spurling test positive Distraction test positive Facet loading test positive Thoracic spine Muscle bulk / tone/ strength in the bilateral paraspinal muscles normal Vertebral body tender to palpation over Facet loading test positive Lumbar spine: Motor bulk/ tone/ strength lower extremities , thigh and legs : 5/5 Deep tendon reflexes : Normal Knee Jerk. Normal Ankle Jerk . Vertebral body tenderness to palpation over L5 Lumbar Facet Loading Test positive Straight Leg Raise: positive at 30 degrees right side/ left side Gaenslen's Test positive Sacral spine : Severe tenderness over the Sacroiliac joint: right side / left side Range of motion: Flexion of the lumbar spine <60 degrees Range of motion: Extension of the lumbar spine <20 degrees Gaenslen's Test positive Colby's Test positive Santana test: positive right side / left side Thigh Thrust Test Sacral Thrust Test Assessment and plan: Chronic low back pain secondary to lumbar degenerative disc disease , lumbar spondylosis with facet arthropathy without myelopathy Recommendation of JENNIFER L5-S1. Risks, benefits of procedure discussed and pt verbalized understanding. Denies anticoagulant use or medical history of diabetes. Chronic and current use of high-risk medication (Opioids). The patient was counseled about risk of opioid use, psychological risk associated with opioids and was orally counseled to not overuse , divert or sell medications. Pt is to store medication in a safe location. The patient is counseled against driving while using narcotic medications and also not to use alcohol or any illicit recreational drugs. Patient verbalized understanding that the lack of compliance will result in failure to renew narcotic prescription(s) as well as possible discharge from the clinic Diagnoses, prognosis and treatment options including but not limited to physical therapy, surgical interventions, interventional therapies and medication management including narcotics and adjuvant medication were discussed. All patient questions answered MAPS reviewed and it was appropriate. Prescription refill for [place] 5/325mg #70, Neurontin 400mg #90 w 1 refill I have spent less than 30 minutes on patient care today. Dr Molina was available by phone for the evaluation of this patient. The time was used to review the medical records including relevant urine studies and Prescription history (MAPs), review of the available imaging, evaluation and examination of the patient, coordination of care with the medical staff and if applicable referring physicians, as well as creation of the medical record PQRS Narrative: Smoking Status Never smoker Narcotic Agreement Date Signed 07/30/21 Hx Alcohol Use (MH) No Home Medications: Ambulatory Orders Calcium/Magnesium/Zinc [Uxpiegh-Khuwnjbnm-Fhqt Tablet] 1 tab PO DAILY 10/22/13 Cranberry Conc/C/Bacill Coag [Cranberry Tablet] 1 cap PO DAILY 10/22/13 Multivitamin [Multivitamins] 1 tab PO DAILY 10/22/13 Cholecalciferol [Vitamin D3] 1,000 unit PO DAILY 07/04/15 Cyanocobalamin (Vitamin B-12) [Vitamin B-12] 1,000 mcg PO DAILY 08/01/21 Cyclobenzaprine [Flexeril] 10 mg PO HS PRN 30 Days #30 tab 11/15/21 Gabapentin [Neurontin] 400 mg PO TID 30 Days #90 cap 11/15/21 HYDROcodone/APAP 5-325MG [[place] 5-325] 1 tab PO Q8HR PRN 30 Days #70 tab 11/15/21 HYDROcodone/APAP 5-325MG [[place] 5-325] 1 tab PO Q8HR PRN 30 Days #70 tab 11/15/21 Controlled Substance Measures - Controlled Substance Measures Is patient prescribed a controlled substance at discharge?: Yes When asked, does pt state using other controlled substances?: No If Rx opioid, was Start Talking consent form obtained?: Yes Was information provided regarding opioid addiction?: Yes
== END | disposition home or self-care (01) ==
LOC: PNWHC3 07:19
PROVIDERS: ATTEND Specialist
DX: M47.896 Other spondylosis, lumbar region (principal); M51.36 Other intervertebral disc degeneration, lumbar region
CPT/HCPCS: 99211

== ENCOUNTER 2022-03-07 06:03 | Day surgery (SDC) | payer BC, OTHER ==
[~2022-03-07 06:03] MED LIST changes: +LIDOCAINE 1% (10MG/ML) FOR IV START INTRADERMA PRN
[2022-03-07 06:45] VITALS: TEMP 96.9
[2022-03-07] MEDS ORDERED: methylPREDNISolone ACETATE 80 MG/ML 1 ML VIAL ONE (07:04)
[2022-03-07] MEDS ORDERED: IOPAMIDOL M200 10 ML VIAL ONE (07:04)
[2022-03-07] MEDS ORDERED: MIDAZOLAM 2 MG/2 ML VIAL ONE (07:04)
[2022-03-07] MEDS ORDERED: fentaNYL (PF) 50 MCG/ML 2 ML AMP ONE (07:04)
--- NOTE | 2022-03-07 07:17 | P.PCN ---
Date of Procedure: 03/07/22 Procedure(s) Performed: PREOPERATIVE DIAGNOSIS: 1- Lumbar Degenerative Disc Diseases 2-Lumbar spondylosis with Facet arthropathy without myelopathy. 3-left sacroiliitis POSTOPERATIVE DIAGNOSIS: Same as preop diagnosis. PROCEDURE 1. Lumbar epidural steroid injection under fluoroscopic guidance at the L5-S1 level. (Fluoroscopy imaging was available in radiology department) 2. Lumbar epidurogram. ANESTHESIA: moderate sedation with intravenous Versed 2 mg ,and fentanyle 100 Mcg Sedation start time : 706 Sedation end time : 712 EBL: Minimal PROCEDURE INDICATION: The patient with low back pain and radiculitis symptoms unresponsive to conservative treatment. Fluoroscopy was used to optimize visualization of the needle placement and to maximize safety. PROCEDURE DESCRIPTION / TECHNIQUE: The patient was seen and identified in the preoperative area. Risks, benefits, complications including but not limited to infections ,bleeding ,allergic reaction to the medications ,nerve damage and not complete pain releife , and alternatives were discussed with the patient. The patient agreed to proceed with the procedure and signed the consent. IV was started, and vital signs were stable. Patient was taken to the OR and time out was completed. The patient was placed in the prone position on procedure table and a pillow was placed under the abdomen to reduce lumbar lordosis. The lumbosacral area was prepped and draped in the usual sterile fashion.ere closely monitored during the procedure. Conscious sedation was used during the procedure to decrease patients anxiety. Vital signs was monitered during the entire procedure. Using anterior-posterior fluoroscopy, the L5-S1 interlaminar space was identified and the skin over this site was marked and then infiltrated with 1% lidocaine subcutaneously. Subsequently, a 20-gauge Tuohy epidural needle was inserted and advanced toward the epidural space using the ``Loss of resistance technique and guided by AP and lateral fluoroscopy. The correct needle position in the epidural space was verified with the injection of 2 mL of the water soluble contrast dye Isovue 200 contrast and observing an excellent epidurogram with the epidural spread of the dye, after negative aspiration for blood and CSF and in the absence of paresthesias. Again after negative aspiration, a 6 ml mixture containing 80 mg of Depo-medrol , and 2 ml of preservative free Normal Saline, and 2 ml of preservative free lidocaine 1% solution was injected and a washout of epidurogram was seen. Needle was withdrawn intact, skin was cleansed, and bandages were applied. COMPLICATIONS: None DISPOSITION / PLANS: The patient was placed in a supine position and transferred to the recovery area in a stable condition for observation. There was no evidence of lower extremity motor or sensory deficit after the procedure. Patient was discharged from the recovery room after meeting discharge criteria. Home discharge instructions were given to the patient by the staff. The patient was reexamined prior to discharge. The patient will schedule a follow up in the clinic in 2-4 weeks.
[2022-03-07] MEDS ORDERED: IV FLUID CONTINUATION 1,000 ML IV ONE (07:20)
--- NOTE | 2022-03-07 07:26 | FL ---
EXAMINATION TYPE: FL guided pain mgmt statistic DATE OF EXAM: 03/07/2022 CLINICAL HISTORY: Low back pain. TECHNIQUE: Fluoroscopy. COMPARISON: None. FINDINGS: Fluoroscopic guidance was provided during pain relief procedure performed by Dr. Molina . A total of 2 seconds of fluoroscopic time was utilized during the procedure and one spot intraoper ative image is acquired. Single image acquired shows needle localization at L5 level. IMPRESSION: As Above.
[2022-03-07 07:47] VITALS: BP 107/71; PULSE 98; RESP 16
== END 2022-03-07 07:55 | disposition home or self-care (01) ==
LOC: ORPAIN 06:03
PROVIDERS: ATTEND Specialist
DX: M51.16 Intervertebral disc disorders with radiculopathy, lumbar region (principal); M47.26 Other spondylosis with radiculopathy, lumbar region; M46.1 Sacroiliitis, not elsewhere classified; M54.50 Low back pain, unspecified; Z88.6 Allergy status to analgesic agent
CPT/HCPCS: 62323; J2250; J1040; J3010; Q9966

== ENCOUNTER → 2022-04-08 | Outpatient (CLI) | payer BC, OTHER ==
[2022-04-08 07:56] VITALS: BP 117/70; PULSE 82; RESP 18
--- NOTE | 2022-04-08 14:45 | P.PAINPG ---
PQRS Measure Charge Sheet Comment: A 62 yr old female with a history of severe and chronic low back pain secondary to lumbar degenerative disc diseases and lumbar spondylosis with facet arthropathy without myelopathy presents today for medication refills. Pt states he experienced 60% pain relief x 3-4 wks s/p procedure. Pain level is currently at 5/10 in intensity, constant, localized in the lower lumbar spine, throbbing in character w shooting towards the BLEs. Pain is provoked by standing/walking for periods of 30 min or more, or lifting. Pain is alleviated with home guided stretches as tolerated, injections, use of a back brace, heat, medications ([place], Neurontin, Flexeril), topicals, repostioning and rest. Interventional pain procedures completed include Evangelist Patient is currently on [place] , Neurontin , Flexeril Patient denies any side effects of the medication(s), denies excessive drowsiness or sleepiness, denies suicidal ideation and reports that the current pain medication is helping to control the pain and improve activities of daily living. Patient denies any motor or sensory deficits. Patient denies any fever or night sweats, denies any change in the bowel movements or urination. Physical Examination: -Constitutional: Cooperative. Not in acute distress . - Neurologic: Cranial nerve II to XII intact. No focal neurological deficits. - Psychatric: Alert & oriented x 3. Matching mood & appropriate affect. Judgment and insight intact. - Musculoskeletal: Cervical spine: Muscle bulk/ tone/ strength in the bilateral upper extremities normal Vertebral body tenderness to palpation over Spurling test positive Distraction test positive Facet loading test positive Thoracic spine Muscle bulk / tone/ strength in the bilateral paraspinal muscles normal Vertebral body tender to palpation over Facet loading test positive Lumbar spine: Motor bulk/ tone/ strength lower extremities , thigh and legs : 5/5 Deep tendon reflexes : Normal Knee Jerk. Normal Ankle Jerk . Vertebral body tenderness to palpation over L3, L4, L5 Lumbar Facet Loading Test positive Straight Leg Raise: positive at 30 degrees right side/ left side Gaenslen's Test positive Sacral spine : Severe tenderness over the Sacroiliac joint: right side / left side Range of motion: Flexion of the lumbar spine <60 degrees Range of motion: Extension of the lumbar spine <20 degrees Gaenslen's Test positive Colby's Test positive Santana test: positive right side / left side Thigh Thrust Test Sacral Thrust Test Assessment and plan: Chronic low back pain secondary to lumbar degenerative disc disease , lumbar spondylosis with facet arthropathy without myelopathy Chronic and current use of high-risk medication (Opioids). The patient was counseled about risk of opioid use, psychological risk associated with opioids and was orally counseled to not overuse , divert or sell medications. Pt is to store medication in a safe location. The patient is counseled against driving while using narcotic medications and also not to use alcohol or any illicit recreational drugs. Patient verbalized understanding that the lack of compliance will result in failure to renew narcotic prescription(s) as well as possible discharge from the clinic Diagnoses, prognosis and treatment options including but not limited to physical therapy, surgical interventions, interventional therapies and medication management including narcotics and adjuvant medication were discussed. All patient questions answered MAPS reviewed and it was appropriate. UDS from 07/30/21 reviewed Prescription refill for [place] 5/325mg #90, Neurontin 400mg #90 w 1 RF I have spent less than 30 minutes on patient care today. Dr Molina was available by phone for the evaluation of this patient. The time was used to review the medical records including relevant urine studies and Prescription history (MAPs), review of the available imaging, evaluation and examination of the patient, coordination of care with the medical staff and if applicable referring physicians, as well as creation of the medical record PQRS Narrative: Smoking Status Never smoker Narcotic Agreement Date Signed 07/30/21 Hx Alcohol Use (MH) No Home Medications: Ambulatory Orders Calcium/Magnesium/Zinc [Xrfbjcc-Etqobruwy-Mdkp Tablet] 1 tab PO DAILY 10/22/13 Cranberry Conc/C/Bacill Coag [Cranberry Tablet] 1 cap PO DAILY 10/22/13 Multivitamin [Multivitamins] 1 tab PO DAILY 10/22/13 Cholecalciferol [Vitamin D3] 1,000 unit PO DAILY 07/04/15 Cyanocobalamin (Vitamin B-12) [Vitamin B-12] 1,000 mcg PO DAILY 08/01/21 Cyclobenzaprine [Flexeril] 10 mg PO HS PRN 30 Days #30 tab 11/15/21 Gabapentin [Neurontin] 400 mg PO TID 30 Days #90 cap 04/08/22 HYDROcodone/APAP 5-325MG [[place] 5-325] 1 tab PO Q6HR PRN 3 Days #12 tab 10/17/22 HYDROcodone/APAP 5-325MG [[place] 5-325] 1 tab PO Q8HR PRN 30 Days #90 tab 04/08/22 Controlled Substance Measures - Controlled Substance Measures Is patient prescribed a controlled substance at discharge?: No
== END | disposition home or self-care (01) ==
LOC: PNWHC3 07:24
PROVIDERS: ATTEND Specialist
DX: M47.896 Other spondylosis, lumbar region (principal)
CPT/HCPCS: 80307; 99212; G0482

== ENCOUNTER → 2022-06-03 | Outpatient (CLI) | payer BC, OTHER ==
[2022-06-03 07:58] VITALS: BP 141/67; PULSE 79; RESP 18; TEMP 98.6
--- NOTE | 2022-06-03 08:45 | P.PAINPG ---
PQRS Measure Charge Sheet Comment: A 62 yr old female with a history of severe and chronic low back pain secondary to lumbar DDD and spondylosis with facet arthropathy without myelopathy presents today for medication refills and LBP. Pt states she experiecned 80% pain relief x 4-5 mo s/p last BL RFA procedure L3-L5 in Jul 2021. Pain level is currently at 7/10 in intensity, constant, localized in the lower lumbar spine, achy/ sharp in character w shooting towards the LLE. Pain is provoked by PT. Pain is alleviated with home exercise regimen, heat, medications ([place], Neurontin, Flexeril), massage therapy without relief, repositioning and rest. Interventional pain procedures completed include BL RFA L3-L5 Patient is currently on [place], Neurontin, Flexeril Patient denies any side effects of the medication(s), denies excessive drowsiness or sleepiness, denies suicidal ideation and reports that the current pain medication is helping to control the pain and improve activities of daily living. Patient denies any motor or sensory deficits. Patient denies any fever or night sweats, denies any change in the bowel movements or urination. Physical Examination: -Constitutional: Cooperative. Not in acute distress . - Neurologic: Cranial nerve II to XII intact. No focal neurological deficits. - Psychatric: Alert & oriented x 3. Matching mood & appropriate affect. Judgment and insight intact. - Musculoskeletal: Cervical spine: Muscle bulk/ tone/ strength in the bilateral upper extremities normal Vertebral body tenderness to palpation over Spurling test positive Distraction test positive Facet loading test positive Thoracic spine Muscle bulk / tone/ strength in the bilateral paraspinal muscles normal Vertebral body tender to palpation over Facet loading test positive Lumbar spine: Motor bulk/ tone/ strength lower extremities , thigh and legs : 5/5 Deep tendon reflexes : Normal Knee Jerk. Normal Ankle Jerk . Vertebral body tenderness to palpation over Lumbar Facet Loading Test positive jump reflex over BL L4-L5, L5-S1 facets Straight Leg Raise: positive at 30 degrees right side/ left side Gaenslen's Test positive Sacral spine : Severe tenderness over the Sacroiliac joint: right side / left side Range of motion: Flexion of the lumbar spine <60 degrees Range of motion: Extension of the lumbar spine <20 degrees Gaenslen's Test positive Santana test: positive right side / left side Thigh Thrust Test Sacral Thrust Test Assessment and plan: Chronic low back pain secondary to lumbar degenerative disc disease, spondylosis with facet arthropathy without myelopathy Recommendation of BL RFA L4-L5, L5-S1. Pt exhibited sufficient and substantial pain relief w prior RFA. Risks, benefits of procedure discussed and pt verbalized understanding. Denies anticoagulant use or medical history of diabetes. Chronic and current use of high-risk medication (Opioids). The patient was counseled about risk of opioid use, psychological risk associated with opioids and was orally counseled to not overuse , divert or sell medications. Pt is to store medication in a safe location. The patient is counseled against driving while using narcotic medications and also not to use alcohol or any illicit recreational drugs. Patient verbalized understanding that the lack of compliance will result in failure to renew narcotic prescription(s) as well as possible discharge from the clinic Diagnoses, prognosis and treatment options including but not limited to physical therapy, surgical interventions, interventional therapies and medication management including narcotics and adjuvant medication were discussed. All patient questions answered MAPS reviewed and it was appropriate. UDS from 04/08/22 reviewed and consistent Prescription refill for Neurontin 400mg #90, [place] 5/325mg #90, Flexeril w 1 RF I have spent less than 30 minutes on patient care today. Dr Molina was available by phone for the evaluation of this patient. The time was used to review the medical records including relevant urine studies and Prescription history (MAPs), review of the available imaging, evaluation and examination of the patient, coordination of care with the medical staff and if applicable referring physicians, as well as creation of the medical record PQRS Narrative: Smoking Status Never smoker Narcotic Agreement Date Signed 07/30/21 Hx Alcohol Use (MH) No Home Medications: Ambulatory Orders Calcium/Magnesium/Zinc [Ruhqaqt-Wnrsivigu-Sqmi Tablet] 1 tab PO DAILY 10/22/13 Cranberry Conc/C/Bacill Coag [Cranberry Tablet] 1 cap PO DAILY 10/22/13 Multivitamin [Multivitamins] 1 tab PO DAILY 10/22/13 Cholecalciferol [Vitamin D3] 1,000 unit PO DAILY 07/04/15 Cyanocobalamin (Vitamin B-12) [Vitamin B-12] 1,000 mcg PO DAILY 08/01/21 Cyclobenzaprine [Flexeril] 10 mg PO HS PRN 30 Days #30 tab 06/03/22 Gabapentin [Neurontin] 400 mg PO TID 30 Days #90 cap 06/03/22 HYDROcodone/APAP 5-325MG [[place] 5-325] 1 tab PO Q6HR PRN 3 Days #12 tab 06/03/22 HYDROcodone/APAP 5-325MG [[place] 5-325] 1 tab PO Q8HR PRN 30 Days #90 tab 06/03/22 Controlled Substance Measures - Controlled Substance Measures Is patient prescribed a controlled substance at discharge?: Yes When asked, does pt state using other controlled substances?: No If prescribed controlled substance>3 days was MAPS reviewed?: Yes If Rx opioid, was Start Talking consent form obtained?: Yes Was information provided regarding opioid addiction?: Yes
== END ==
LOC: PNWHC3 07:18
PROVIDERS: ATTEND Specialist
DX: M47.816 Spondylosis without myelopathy or radiculopathy, lumbar region (principal); M51.36 Other intervertebral disc degeneration, lumbar region; Z79.891 Long term (current) use of opiate analgesic; Z88.5 Allergy status to narcotic agent
CPT/HCPCS: 99211

== ENCOUNTER 2022-07-19 06:35 | Day surgery (SDC) | payer BC, OTHER ==
[2022-07-17 10:46] VITALS: BMI 21.1
[2022-07-19 06:49] VITALS: TEMP 97
[2022-07-19] MEDS ORDERED: MIDAZOLAM 2 MG/2 ML VIAL ONE (07:34)
[2022-07-19] MEDS ORDERED: fentaNYL (PF) 50 MCG/ML 2 ML AMP ONE (07:34)
[2022-07-19] MEDS ORDERED: ROPIVACAINE 5 MG/ML 20 ML AMPULE ONE (07:34)
[2022-07-19] MEDS ORDERED: methylPREDNISolone ACETATE 40 MG/ML 1 ML VIAL ONE (07:34)
--- NOTE | 2022-07-19 07:55 | P.PCN ---
Date of Procedure: 07/19/22 Procedure(s) Performed: PREOPERATIVE DIAGNOSIS: 1-Lumbar Spondylosis with Facet Arthropathy without myelopathy. POSTOPERATIVE DIAGNOSIS: 1- Lumbar Spondylosis with Facet Arthropathy without myelopathy. PROCEDURES : Left Radiofrequency thermocoagulation, L3 , L4 , and L5 medial branch, with fluoroscopic guidance (fluoroscopy images available in the radiology department) ( to denervate the facet joint at left L4-5 ,and L5-S1 levels ). ANESTHESIA: monitored anesthesia care as per anesthesia department . EBL: Minimal PROCEDURE INDICATION: The patient with low back pain secondary to lumbar facet arthropathy who had more than 50% relief of her pain with previous diagnostic lumbar medial branch block with bupivacaine. PROCEDURE DESCRIPTION / TECHNIQUE: The patient was seen and identified in the preoperative area. Risks, benefits, complications, including but not limited to risk of infection ,bleeding , allergic reactions to the medications and no complete pain releife , and alternatives were discussed with the patient, the patient agreed to proceed with the procedure and signed the consent. IV was started. Vital signs remained stable throughout the procedure. Patient was taken to the OR and time out was completed. The patient was placed in the prone position on the procedure table. The lumber area was prepped and draped in the usual sterile fashion. . Vital signs were closely monitored during the procedure .IV sedation was used during the procedure to decrease patients anxiety. Using AP and then oblique fluoroscopy, the ``eye of the Ghassan dog corresponding to the connection between the superior and transverse articular processes of Left L3, L4, and L5 were identified, marked, and localized with 1% lidocaine. Subsequently, a [id number] radiofrequency cannula with a 10-mm active tip was advanced guided by fluoroscopy to each of the``eyes of the Ghassan dog at Left L3, L4, and L5. Each site then underwent sensory testing at 50 Hz and 0 to 1 volt and motor testing at 2.5 Hz and 0 to 3 volt with local stimulation, but no radicular symptoms down the legs. Thereafter each sites underwent radiofrequency thermocoagulation at 80 degrees celsius for 90 seconds after injecting 0.5 ml of PF Ropivacaine 1ml, then after the thermocoagulation done , 1 ml of the block solution containing Depo-Medrol 40 mg and 3 ml of Ropivacaine 0.5% was injected at the Left L3 , L4 , and L5 , levels after negative aspiration of CSF and blood and with no paresthesias. Cannulas were retracted while injecting lidocaine 1% until the needle is out. At the end of the procedure, the skin was cleansed and bandages were applied. COMPLICATIONS: No acute complications. DISPOSITION / PLANS: The patient was placed in a supine position and transferred to the recovery area in a stable condition for observation and was discharged from the recovery room after meeting discharge criteria. Home discharge instructions given to the patient by the staff. The patient was reexamined prior to discharge. The patient will schedule a follow up in the clinic in 2-4 weeks.
[2022-07-19] MEDS ORDERED: IV FLUID CONTINUATION 1,000 ML IV ONE (07:58)
[2022-07-19 08:17] VITALS: BP 107/62; PULSE 63; RESP 17
--- NOTE | 2022-07-19 08:46 | FL ---
EXAMINATION TYPE: FL guided pain mgmt statistic DATE OF EXAM: 07/19/2022 CLINICAL HISTORY: Low back pain. TECHNIQUE: Fluoroscopy. COMPARISON: None. FINDINGS: Fluoroscopic guidance was provided during pain relief procedure performed by Dr. Molina . A total of 7 seconds of fluoroscopic time was utilized during the procedure and 3 spot images are acquired. Images acquired shows needle localization at several levels in the lumbar spine. IMPRESSION: As Above.
== END 2022-07-19 08:31 | disposition home or self-care (01) ==
LOC: ORPAIN 06:35
PROVIDERS: ATTEND Specialist
DX: M47.816 Spondylosis without myelopathy or radiculopathy, lumbar region (principal); Z88.5 Allergy status to narcotic agent; Z98.890 Other specified postprocedural states; Z98.51 Tubal ligation status; Z79.891 Long term (current) use of opiate analgesic; Z79.899 Other long term (current) drug therapy; Z90.49 Acquired absence of other specified parts of digestive tract
CPT/HCPCS: 64635; 64636; J2250; J1030; J3010; J2795

== ENCOUNTER → 2022-09-23 | Outpatient (CLI) | payer BC, OTHER ==
--- NOTE | 2022-09-23 07:57 | P.PN ---
Subjective Progress Note Date: 09/23/22 This is follow up visit for 62 yr old female with a history of severe and chronic LBP since 2009secondary to lumbar DDD, and spondylosis with facet arthropathy without myelopathy ,presents today for medication refills & evaluation s/p L RFA L3-L5. Pt states she experienced 80% pain relief s/p procedure. Pain level is provoked at 4/10 in intensity, constant, localized in the lumbar spine, throbbing in character w shooting towards the LLE. Pain is provoked by PT, chiropractic treatments, standing/ walking for periods of 20 min or more. Pain is alleviated with heat, meds ([place], Neurontin, Flexeril), topicals, PT 4-5 yrs ago which worsened pain, chiproractic treatments which provoked pain, repositioning and rest. Interventional pain procedures completed include L RFA L3-L5 Patient is currently on [place], Neurontin, Flexeril Patient denies any side effects of the medication(s), denies excessive drowsiness or sleepiness, denies suicidal ideation and reports that the current pain medication is helping to control the pain and improve activities of daily living. Patient denies any motor or sensory deficits. Patient denies any fever or night sweats, denies any change in the bowel movements or urination. The report that she feels sleepy when she take Flexeril 10 mg at night and she is doing if we can decrease the dose of Flexeril Physical Examination: -Constitutional: Cooperative. Not in acute distress . - Neurologic: Cranial nerve II to XII intact. No focal neurological deficits. - Psychatric: Alert & oriented x 3. Matching mood & appropriate affect. Judgment and insight intact. - Musculoskeletal: Cervical spine: Muscle bulk/ tone/ strength in the bilateral upper extremities normal Vertebral body tenderness to palpation over Spurling test positive Distraction test positive Facet loading test positive Thoracic spine Muscle bulk / tone/ strength in the bilateral paraspinal muscles normal Vertebral body tender to palpation over Facet loading test positive Lumbar spine: Motor bulk/ tone/ strength lower extremities , thigh and legs : 5/5 Deep tendon reflexes : Normal Knee Jerk. Normal Ankle Jerk . Vertebral body tenderness to palpation over L5 Lumbar Facet Loading Test positive Straight Leg Raise: positive at 30 degrees right side/ left side Gaenslen's Test positive Sacral spine : Severe tenderness over the Sacroiliac joint: right side / left side Range of motion: Flexion of the lumbar spine <60 degrees Range of motion: Extension of the lumbar spine <20 degrees Gaenslen's Test positive Santana test: positive right side / left side Thigh Thrust Test Sacral Thrust Test Assessment and plan: Chronic LBP secondary to lumbar DDD, spondylosis with facet arthropathy without myelopathy Chronic and current use of high-risk medication (Opioids). The patient was counseled about risk of opioid use, psychological risk associated with opioids and was orally counseled to not overuse , divert or sell medications. Pt is to store medication in a safe location. The patient is counseled against driving while using narcotic medications and also not to use alcohol or any illicit recreational drugs. Patient verbalized understanding that the lack of compliance will result in failure to renew narcotic prescription(s) as well as possible discharge from the clinic Diagnoses, prognosis and treatment options including but not limited to physical therapy, surgical interventions, interventional therapies and medication management including narcotics and adjuvant medication were discussed. All patient questions answered MAPS reviewed and it was appropriate. UDS ordered today. Prescription refill for [place], Neurontin, with decreased Flexeril to 5 mg daily at bedtime w 1 RF I have spent less than 30 minutes on patient care today. The time was used to review the medical records including relevant urine studies and Prescription history (MAPs), review of the available imaging, evaluation and examination of the patient, coordination of care with the medical staff and if applicable referring physicians, as well as creation of the medical record - Pain Location Bilateral Lower Back Non-Pharmacological Interventions: Heat, Sitting, Stretching Pharmacological Interventions: Scheduled Medication, Topical Medication PQRS Narrative: Home Medications: Ambulatory Orders Calcium/Magnesium/Zinc [Oddlyfb-Wfpnwicbc-Cxmy Tablet] 1 tab PO DAILY 10/22/13 Cranberry Conc/C/Bacill Coag [Cranberry Tablet] 1 cap PO DAILY 10/22/13 Multivitamin [Multivitamins] 1 tab PO DAILY 10/22/13 Cholecalciferol [Vitamin D3] 1,000 unit PO DAILY 07/04/15 Cyanocobalamin (Vitamin B-12) [Vitamin B-12] 1,000 mcg PO DAILY 08/01/21 Cyclobenzaprine [Flexeril] 10 mg PO HS PRN 30 Days #30 tab 06/03/22 Gabapentin [Neurontin] 400 mg PO TID 30 Days #90 cap 06/03/22 HYDROcodone/APAP 5-325MG [[place] 5-325] 1 tab PO Q8H PRN 30 Days #90 tab 06/05/22 Controlled Substance Measures - Controlled Substance Measures Is patient prescribed a controlled substance at discharge?: Yes When asked, does pt state using other controlled substances?: No If prescribed controlled substance>3 days was MAPS reviewed?: Yes If Rx opioid, was Start Talking consent form obtained?: Yes If opioid is for acute pain is fill amount 7 days or less?: No Was information provided regarding opioid addiction?: Yes Objective - Vital Signs Vital signs: Intake & Output 09/22/22 09/23/22 09/23/22 18:59 06:59 18:59 Weight 68.039 kg
[2022-09-23 08:25] VITALS: BP 131/73; PULSE 88; RESP 18; TEMP 98.3
== END ==
LOC: PNWHC3 07:20
PROVIDERS: ATTEND Specialist
DX: M47.816 Spondylosis without myelopathy or radiculopathy, lumbar region (principal); M51.36 Other intervertebral disc degeneration, lumbar region; G89.29 Other chronic pain; Z79.891 Long term (current) use of opiate analgesic; Z88.5 Allergy status to narcotic agent
CPT/HCPCS: 80307; 99212; G0482

== ENCOUNTER → 2022-11-14 | Outpatient (CLI) | payer BC, OTHER ==
[2022-11-14 10:11] VITALS: BP 124/76; PULSE 77; RESP 18; TEMP 98.2
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
== END ==
LOC: PNWHC3 07:26
PROVIDERS: ATTEND Specialist
DX: M51.36 Other intervertebral disc degeneration, lumbar region (principal); M47.816 Spondylosis without myelopathy or radiculopathy, lumbar region; G89.29 Other chronic pain; Z79.891 Long term (current) use of opiate analgesic; Z88.5 Allergy status to narcotic agent; Z56.5 Uncongenial work environment
CPT/HCPCS: 99211

== ENCOUNTER → 2023-01-08 | Outpatient (CLI) | payer BC, OTHER ==
[2023-01-08 08:08] VITALS: BP 113/75; PULSE 74; RESP 15; TEMP 98
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
== END ==
LOC: PNWHC3 07:15
PROVIDERS: ATTEND Specialist
DX: M51.36 Other intervertebral disc degeneration, lumbar region (principal); M47.816 Spondylosis without myelopathy or radiculopathy, lumbar region; G89.29 Other chronic pain; Z79.891 Long term (current) use of opiate analgesic; Z88.5 Allergy status to narcotic agent
CPT/HCPCS: 99211

== ENCOUNTER → 2023-01-21 | Outpatient (CLI) | payer BC ==
--- NOTE | 2023-01-22 07:52 | MM ---
Reason for Exam: Screening (asymptomatic). Last mammogram was performed 2 year(s) and 8 month(s) ago. Patient History: Menarche at age 13. First Full-Term at age 24. Hysterectomy at age 33. Postmenopausal. Other cancer, age 53. Risk Values: Rosalie 5 year model risk: 1.3%. NCI Lifetime model risk: 6.4%. Prior Study Comparison: 07/07/2017 Bilateral Screening Mammogram, [facility]. 07/15/2017 Right Diagnostic Mammogram, [facility]. 05/25/2020 Bilateral Screening Mammogram, [facility]. Tissue Density: The breast tissue is heterogeneously dense. This may lower the sensitivity of mammography. Findings: Analyzed By CAD. There is no suspicious group of microcalcifications or new suspicious mass in either breast. Overall Assessment: Negative, BI-RAD 1 Management: Screening Mammogram of both breasts in 1 year. A clinical breast exam by your physician is recommended on an annual basis and results should be correlated with mammographic findings. Note on Rosalie scores and lifetime risk: 1. A Rosalie score greater than 3% is considered moderate risk. If this is the case, consider specialist referral to assess eligibility for a risk reducing agent. If overall lifetime risk for the development of breast cancer is 20% or higher, the patient may qualify for future screening with alternating mammogram and breast MRI. Electronically signed and approved by: Beau Lange D.O.
== END | disposition home or self-care (01) ==
LOC: RADMAMWWP 15:00
PROVIDERS: ATTEND Family Medicine
DX: Z12.31 Encounter for screening mammogram for malignant neoplasm of breast (principal); Z78.0 Asymptomatic menopausal state
CPT/HCPCS: 77067

== ENCOUNTER → 2023-03-05 | Outpatient (CLI) | payer BC, OTHER ==
[2023-03-05 08:33] VITALS: BP 134/83; PULSE 67; RESP 16; TEMP 98.4
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
== END ==
LOC: PNWHC3 07:22
PROVIDERS: ATTEND Specialist
DX: M51.37 Other intervertebral disc degeneration, lumbosacral region (principal); M47.817 Spondylosis without myelopathy or radiculopathy, lumbosacral region; G89.29 Other chronic pain; Z87.891 Personal history of nicotine dependence; Z88.5 Allergy status to narcotic agent
CPT/HCPCS: 99211

== ENCOUNTER → 2023-04-03 | Outpatient (CLI) | payer BC, OTHER ==
--- NOTE | 2023-04-03 09:10 | MR ---
EXAMINATION TYPE: MR lumbar spine wo con DATE OF EXAM: 04/03/2023 6:33 AM CLINICAL INDICATION:Female, 63 years old with history of M51.36 OTHER INTERVERTEBRAL DISC DEGENERATIO N, Low back pain that radiates down left leg, history of spacer placement 2010. COMPARISON: 11/30/2018. Radiographs 03/21/2023. TECHNIQUE: Multi planar, multi sequence imaging was performed utilizing: T1-weighted, T2-weighted, a nd turbo inversion recovery imaging of the lumbar spine. IV Contrast: (None if empty) FINDINGS: Alignment: The lumbar vertebral bodies have preserved heights and alignment. 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 Cord: The conus medullaris and the distal spinal cord appear unremarkable with regards to their signa l intensity and morphology. Bones/Discs: Multilevel disc degeneration changes with facet joint arthropathy. No abnormal bony ida a on inversion recovery sequences. Scattered disc desiccation and disc space narrowing. Few Schmorl's nodes are present. Intervertebral disc signal is maintained. T12-L1: No evidence of significant spinal canal stenosis or neural foraminal stenosis. L1-L2: No evidence of significant spinal canal stenosis or neural foraminal stenosis. L2-L3: No evidence of significant spinal canal stenosis or neural foraminal stenosis. L3-L4: No evidence of significant spinal canal stenosis or neural foraminal stenosis. L4-L5: Right central disc protrusion without significant spinal canal stenosis. The neural foramen is patent. L5-S1: The disc is rounded posterior morphology without significant spinal canal stenosis. Facet join t arthropathy with mild bilateral neural foraminal stenosis. No significant spinal canal or neural foraminal stenosis in the remainder of the visualized levels. Other findings: High T2 signal liver lesion measuring up to 2.4 x 2.4 cm. IMPRESSION: 1. L4-L5 right central disc protrusion without significant spinal canal stenosis. Neural foramen are patent. This is a new finding from prior on 11/30/2018 . 2. Overall similar disc degeneration with associated osteoarthritic changes. No evidence for signifi cant spinal canal or neural foraminal stenosis. 3. Indeterminate liver lesion measuring up to 2.4 cm. This can be further evaluated with MRI liver ma protocol.
== END | disposition home or self-care (01) ==
LOC: RADMRIMAIN 05:57
PROVIDERS: ATTEND Specialist
DX: M51.36 Other intervertebral disc degeneration, lumbar region (principal); M51.26 Other intervertebral disc displacement, lumbar region; M47.816 Spondylosis without myelopathy or radiculopathy, lumbar region
CPT/HCPCS: 72148

== ENCOUNTER 2023-04-25 06:33 | Day surgery (SDC) | payer BC, OTHER ==
[~2023-04-25 06:33] MED LIST changes: -LIDOCAINE 1% (10MG/ML) FOR IV START INTRADERMA PRN
[2023-04-25 07:12] VITALS: TEMP 97.5
[2023-04-25] MEDS ORDERED: MIDAZOLAM 2 MG/2 ML VIAL ONE (07:40)
[2023-04-25] MEDS ORDERED: fentaNYL (PF) 50 MCG/ML 2 ML AMP ONE (07:40)
[2023-04-25] MEDS ORDERED: ROPIVACAINE 5MG/ML 20ML VIAL ONE (07:42)
[2023-04-25] MEDS ORDERED: LACTATED RINGERS 1,000 ML IV SCH (07:45)
[2023-04-25] MEDS ORDERED: IV FLUID CONTINUATION 1,000 ML IV ONE ×2 (08:08)
[2023-04-25 08:20] VITALS: RESP 18
--- NOTE | 2023-04-25 08:39 | FL ---
EXAMINATION TYPE: FL guided pain mgmt statistic DATE OF EXAM: 04/25/2023 FLUOROSCOPY Left Lumbar Rad Freq 9sec fluoro time 0.24275 Gycm2 DAP 3 image/s document/s the procedure.
[2023-04-25 08:43] VITALS: BP 108/59; PULSE 63
--- NOTE | 2023-04-25 11:29 | P.PCN ---
Date of Procedure: 04/25/23 Description of Procedure: PREOPERATIVE DIAGNOSIS: 1-Lumbar Spondylosis with Facet Arthropathy without myelopathy. 2- Lumber degenerative disc disease. POSTOPERATIVE DIAGNOSIS: 1- Lumbar Spondylosis with Facet Arthropathy without myelopathy. 2- Lumber degenerative disc disease. PROCEDURES : Left Radiofrequency thermocoagulation, L4 , and L5 medial branch, with fluoroscopic guidance (fluoroscopy images available in the radiology department) ( to denervate the facet joint at bilateral L4-5 ,and L5-S1 levels ). ANESTHESIA: Monitored anesthesia care as per anesthesia department , EBL: Minimal PROCEDURE INDICATION: The patient with low back pain secondary to lumbar facet arthropathy who had more than 50% relief of her pain with previous diagnostic lumbar medial branch block with bupivacaine. PROCEDURE DESCRIPTION / TECHNIQUE: The patient was seen and identified in the preoperative area. Risks, benefits, complications, including but not limited to risk of infection ,bleeding , allergic reactions to the medications and no complete pain releife , and alternatives were discussed with the patient, the patient agreed to proceed with the procedure and signed the consent. IV was started. Vital signs remained stable throughout the procedure. Patient was taken to the OR and time out was completed. The patient was placed in the prone position on the procedure table. The lumber area was prepped and draped in the usual sterile fashion. . Vital signs were closely monitored during the procedure .IV sedation was used during the procedure to decrease patients anxiety. Using AP and then oblique fluoroscopy, the ``eye of the Ghassan dog correspond ing to the connection between the superior and transverse articular processes of left L4, and L5 and junction of the superior articular process with left ala of the sacrum were identified, marked, and localized with 1% lidocaine. Subsequently, a 18 [id number] radiofrequency cannula with a 10-mm active tip was advanced guided by fluoroscopy to each of the``eyes of the Ghassan dog at left L4, and L5. Each site then underwent sensory testing at 50 Hz and 0 to 1 volt and motor testing at 2.5 Hz and 0 to 3 volt with local stimulation, but no radicular symptoms down the legs. Thereafter each sites underwent radiofrequency thermocoagulation at 80 degrees celsius for 90 seconds after injecting 0.5 ml of PF Ropivacaine 1ml, then after the thermocoagulation done , At the end of the procedure, the skin was cleansed and bandages were applied. COMPLICATIONS: No acute complications. DISPOSITION / PLANS: The patient was placed in a supine position and transferred to the recovery area in a stable condition for observation and was discharged from the recovery room after meeting discharge criteria. Home discharge instructions given to the patient by the staff. The patient was reexamined prior to discharge. The patient will schedule a follow up in the clinic in 2-4 weeks.
== END 2023-04-25 08:41 | disposition home or self-care (01) ==
LOC: ORPAIN 06:33
PROVIDERS: ATTEND Pain Medicine Interventional Pain Medicine
DX: M47.816 Spondylosis without myelopathy or radiculopathy, lumbar region (principal); M51.36 Other intervertebral disc degeneration, lumbar region; M19.90 Unspecified osteoarthritis, unspecified site; G25.70 Drug induced movement disorder, unspecified; Z88.5 Allergy status to narcotic agent; Z79.899 Other long term (current) drug therapy
CPT/HCPCS: 64636 ×2; 64635; J2250; J3010; J2795

== ENCOUNTER → 2023-04-30 | Outpatient (CLI) | payer BC, OTHER ==
[2023-04-30 08:11] VITALS: BP 121/77; PULSE 78; RESP 16; TEMP 98.6
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
== END ==
LOC: PNWHC3 07:21
PROVIDERS: ATTEND Specialist
DX: M54.51 Vertebrogenic low back pain (principal); M47.816 Spondylosis without myelopathy or radiculopathy, lumbar region; M51.37 Other intervertebral disc degeneration, lumbosacral region; M47.817 Spondylosis without myelopathy or radiculopathy, lumbosacral region; G89.29 Other chronic pain; Z51.81 Encounter for therapeutic drug level monitoring; Z79.891 Long term (current) use of opiate analgesic; Z88.5 Allergy status to narcotic agent
CPT/HCPCS: 80307; 99212

== ENCOUNTER → 2023-07-23 | Outpatient (CLI) | payer BC, OTHER ==
[2023-07-23 08:03] VITALS: BP 134/73; PULSE 85; RESP 15
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
== END ==
LOC: PNWHC3 07:21
PROVIDERS: ATTEND Anesthesiology
DX: M47.817 Spondylosis without myelopathy or radiculopathy, lumbosacral region (principal); M54.50 Low back pain, unspecified; M51.37 Other intervertebral disc degeneration, lumbosacral region; Z79.891 Long term (current) use of opiate analgesic; Z88.8 Allergy status to other drugs, medicaments and biological substances
CPT/HCPCS: 80307; 99212

== ENCOUNTER → 2023-09-17 | Outpatient (CLI) | payer BC, OTHER ==
[2023-09-17 09:04] VITALS: BP 160/109; PULSE 76; RESP 15; TEMP 98.6
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
== END ==
LOC: PNWHC3 07:19
PROVIDERS: ATTEND Specialist
DX: M51.36 Other intervertebral disc degeneration, lumbar region (principal); M47.816 Spondylosis without myelopathy or radiculopathy, lumbar region; Z79.891 Long term (current) use of opiate analgesic; Z88.5 Allergy status to narcotic agent
CPT/HCPCS: 80307; 99212

== ENCOUNTER → 2023-10-22 | Outpatient (CLI) | payer BC, OTHER ==
[2023-10-22 08:09] VITALS: BP 112/77; PULSE 82; RESP 16; TEMP 97.7
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
== END ==
LOC: PNWHC3 07:23
PROVIDERS: ATTEND Specialist
DX: M51.37 Other intervertebral disc degeneration, lumbosacral region (principal); M47.817 Spondylosis without myelopathy or radiculopathy, lumbosacral region; G89.29 Other chronic pain; Z79.891 Long term (current) use of opiate analgesic; Z88.5 Allergy status to narcotic agent
CPT/HCPCS: 99211

== ENCOUNTER → 2023-11-19 | Outpatient (CLI) | payer BC, OTHER ==
[2023-11-19 08:04] VITALS: BP 145/100; PULSE 72; RESP 16; TEMP 96.8
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
== END ==
LOC: PNWHC3 07:19
PROVIDERS: ATTEND Specialist
DX: M51.37 Other intervertebral disc degeneration, lumbosacral region (principal); M47.817 Spondylosis without myelopathy or radiculopathy, lumbosacral region; Z79.891 Long term (current) use of opiate analgesic; Z88.5 Allergy status to narcotic agent
CPT/HCPCS: 99211

== ENCOUNTER → 2024-01-14 | Outpatient (CLI) | payer BC, OTHER ==
[2024-01-14 07:39] VITALS: BP 132/76; PULSE 77; RESP 16; TEMP 97.5
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
== END ==
LOC: PNWHC3 07:18
PROVIDERS: ATTEND Specialist
DX: M51.37 Other intervertebral disc degeneration, lumbosacral region (principal); M47.817 Spondylosis without myelopathy or radiculopathy, lumbosacral region; Z79.891 Long term (current) use of opiate analgesic; Z88.5 Allergy status to narcotic agent
CPT/HCPCS: 99211

== ENCOUNTER → 2024-01-27 | Outpatient (CLI) | payer BC, OTHER | END | disposition home or self-care (01) | LOC: LABPRL 11:12 | PROVIDERS: ATTEND Registered Nurse | DX: Z01.89 Encounter for other specified special examinations (principal); Z13.220 Encounter for screening for lipoid disorders; Z13.29 Encounter for screening for other suspected endocrine disorder; E55.9 Vitamin D deficiency, unspecified; R73.01 Impaired fasting glucose; Z76.89 Persons encountering health services in other specified circumstances | CPT/HCPCS: 80053; 80061; 82306; 83036; 83735; 84443; 84550; 85025; 87086 ==

== ENCOUNTER → 2024-03-10 | Outpatient (CLI) | payer BC, OTHER ==
[2024-03-10 09:02] VITALS: BP 130/74; PULSE 79; RESP 16; TEMP 97.3
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
== END ==
LOC: PNWHC3 07:32
PROVIDERS: ATTEND Specialist
DX: M47.816 Spondylosis without myelopathy or radiculopathy, lumbar region
CPT/HCPCS: 99211

== ENCOUNTER → 2024-05-12 | Outpatient (CLI) | payer BC, OTHER ==
[2024-05-12 07:49] VITALS: BP 138/81; PULSE 80; RESP 16; TEMP 97.3
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
== END ==
LOC: PNWHC3 07:20
PROVIDERS: ATTEND Specialist
DX: M47.26 Other spondylosis with radiculopathy, lumbar region (principal); Z79.891 Long term (current) use of opiate analgesic; Z88.5 Allergy status to narcotic agent
CPT/HCPCS: 80307; 99212

== ENCOUNTER 2024-06-11 06:00 | Day surgery (SDC) | payer BC, OTHER ==
[2024-06-03 10:42] VITALS: BMI 21.5
[2024-06-11] MEDS ORDERED: LACTATED RINGERS 1,000 ML IV SCH (06:23)
[2024-06-11] MEDS: LACTATED RINGERS 1,000 ML IV SCH (06:42)
[2024-06-11 06:48] VITALS: TEMP 98.2
[2024-06-11] MEDS: IV FLUID CONTINUATION 1,000 ML IV ONE ×2 (06:48→07:34)
[2024-06-11] MEDS ORDERED: ROPIVACAINE 5MG/ML 20ML VIAL ONE (07:02)
[2024-06-11] MEDS ORDERED: fentaNYL (PF) 50 MCG/ML 2 ML AMP ONE (07:02)
[2024-06-11] MEDS ORDERED: MIDAZOLAM 2 MG/2 ML VIAL ONE (07:02)
[2024-06-11 07:38] VITALS: RESP 16
--- NOTE | 2024-06-11 07:38 | P.PCN ---
Description of Procedure: Preprocedure diagnosis. 1. Lumbar spondylosis with facet joint arthropathy without myelopathy. 2. Lumbar degenerative disc disease. Procedure diagnosis. 1. Lumbar spondylosis with facet joint arthropathy without myelopathy. Space 2. Lumbar degenerative disc disease. Procedure.Left radiofrequency thermocoagulation L3, L4 and L5 medial branch, with fluoroscopic guidance (fluoroscopy images are available in the radiology department) (to Denervate the facet joint at Left L4- 5 and L5-S1 levels) Anesthesia. Moderate sedation with intravenous Versed 2 mg and fentanyl 100 g and local infiltration with Lidocaine. Continuous pulse OX,BP,EKG and verbal communication was maintained with patient. Time. EBL minimal. Procedure indication. The patient with low back pain secondary to lumbar facet arthropathy who he had more than 50% relief of her pain with previous diagnostic lumbar medial branch block with local anesthetics.The patient was seen and identified in the preoperative area. Risks: Benefits, complications, including but not limited to risk of infection, bleeding, ALLERGIC reaction to the medications and no complete pain relief and alternatives were discussed with the patient, the patient admitted to proceed with the procedure and signed the consent. Procedure description/technique. Patient was taken to the OR and timeout was completed. The patient was placed in prone position on the procedure table. The lumbar area was prepped and draped in the usual sterile fashion. After injecting 5 ml of 1% Lidocaine subcutaneously,using AP and then oblique, lateral view of fluoroscopy, 18-gauge 100 mm radiofrequency cannula with a 10 mm active tip was advanced and guided by fluoroscopy at the junction of supirior articular process with Left ala of the sacrum, transverse process of L4&L5. Each site then underwent positive sensory testing with 50 Hz and 0-1 V and negative motor testing at 2.5 Hz and 0-3 V with local stimulation but no radicular symptoms down the leg. Thereafter each sites underwent radiofrequency thermocoagulation at 80C for 90 seconds after injecting 1 mL of preservative- free 0.5% ropivacaine. Repeat radiofrequency ablation was done at each points after rotating the needle 180 with same setting. RF needles were taken out. At the end of the procedure the skin was cleansed and Band-Aids were applied. Disposition patient tolerated the procedure well. No complication. She was placed in supine position and transferred to the recovery area in stable conditi on for observation and was discharged home from recovery room after meeting discharge criteria. Discharge instructions given to the patient by the staff. The patient were examined prior to discharge the patient will schedule a follow- up in the clinic in 2-4 weeks.
[2024-06-11 07:56] VITALS: BP 120/73; PULSE 65
--- NOTE | 2024-06-11 09:24 | FL ---
EXAMINATION TYPE: FL guided pain mgmt statistic DATE OF EXAM: 06/11/2024 7:36 AM COMPARISON: Pre Operative Images if available both CT/MRI or plain film CLINICAL INDICATION: Female, 64 years old with history of Lumbar Rad Freq; TECHNIQUE: FL guided pain mgmt statistic, multiple fluoroscopic images provided for procedure. Total fluoroscopy time: 24.1 seconds Total submitted images to PACS: 3 DAP: 0.15659 mGym2 Gycm2 uGym2 cGycm2 or equivalent. FINDINGS: Fluoroscopic images during injection for pain management demonstrate multilevel degeneration changes throughout the spine. No evidence for fracture. No acute process identified. IMPRESSION: 1. No evidence for intraoperative complication. 2. Please see the operative/procedural note for further details. [facility], , 06/11/2024 9:22 AM
== END 2024-06-11 08:05 | disposition home or self-care (01) ==
LOC: ORPAIN 06:00
PROVIDERS: ATTEND Pain Medicine Interventional Pain Medicine
DX: M47.816 Spondylosis without myelopathy or radiculopathy, lumbar region (principal); M51.369 Other intervertebral disc degeneration, lumbar region without mention of lumbar back pain or lower extremity pain; Z88.5 Allergy status to narcotic agent
CPT/HCPCS: 64635; 64636; 99152; 99153; J2250; J3010; J2795

== ENCOUNTER → 2024-07-07 | Outpatient (CLI) | payer BC, OTHER ==
[2024-07-07 07:39] VITALS: BP 137/86; PULSE 84; RESP 16; TEMP 97.8
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
== END ==
LOC: PNWHC3 07:14
PROVIDERS: ATTEND Specialist
DX: M47.27 Other spondylosis with radiculopathy, lumbosacral region (principal); Z88.5 Allergy status to narcotic agent
CPT/HCPCS: 99211

== ENCOUNTER → 2024-09-01 | Outpatient (CLI) | payer BC, OTHER ==
[2024-09-01 07:54] VITALS: BP 126/78; PULSE 82; RESP 16; TEMP 97.3
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
== END ==
LOC: PNWHC3 07:22
PROVIDERS: ATTEND Specialist
DX: M47.26 Other spondylosis with radiculopathy, lumbar region (principal); G89.29 Other chronic pain; Z79.891 Long term (current) use of opiate analgesic; Z88.5 Allergy status to narcotic agent
CPT/HCPCS: 99211

== ENCOUNTER → 2024-09-20 | Outpatient (CLI) | payer BC, OTHER ==
--- NOTE | 2024-09-20 08:02 | US ---
EXAMINATION TYPE: US carotid duplex BILAT DATE OF EXAM: 09/20/2024 COMPARISON: NONE CLINICAL INDICATION: Female, 64 years old with history of I65.23 OCCLUSION AND STENOSIS OF BILATERAL CAROTID; Stenosis Additional History: .... TECHNIQUE: Grayscale, color Doppler and spectral Doppler evaluation of the bilateral carotid systems and vertebral arteries. Indirect Doppler criteria was utilized. 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 Spectral waveforms are within normal limits. IMPRESSION: Right: Less than 50% stenosis of the carotid bifurcation. Left: Less than 50% stenosis of the carotid bifurcation. Criteria for Assigning % of Stenosis / Diameter reduction (Estimation based on the indirect measurements of the internal carotid artery velocities (ICA PSV). 1. Normal (no stenosis)=ICA PSV < 180 cm/s: ratio < 2.0: ICA EDV<40 cm/s. 2. Less than 50% stenosis=ICA PSV < 180 cm/s: ratio < 2.0: ICA EDV<40 cm/s. 3. 50 to 69% stenosis=ICA PSV of 180 to 230 cm/s: ration 2.0 ? 4.0: ICA EDV 40-100 cm/s. 4. Greater than 70% stenosis to near occlusion= ICA PSV > 230 cm/s: ratio > 4.0: ICA EDV > 100 cm/s. 5. Near occlusion= ICA PSV velocities may be low or undetectable: variable ratio and ICA EDV. 6. Total occlusion=unable to detect flow. [facility], , 09/20/2024 7:59 AM
== END | disposition home or self-care (01) ==
LOC: RADUSWWP 07:25
PROVIDERS: ATTEND Internal Medicine
DX: I65.23 Occlusion and stenosis of bilateral carotid arteries (principal)
CPT/HCPCS: 93880

== ENCOUNTER → 2024-10-22 | Outpatient (CLI) | payer BC ==
--- NOTE | 2024-10-22 08:15 | MM ---
Reason for Exam: Screening (asymptomatic). Last mammogram was performed 1 year(s) and 9 month(s) ago. Patient History: Menarche at age 13. First Full-Term at age 24. Hysterectomy at age 33. Postmenopausal. Other cancer, age 53. Risk Values: Rosalie 5 year model risk: 1.4%. NCI Lifetime model risk: 6.0%. Prior Study Comparison: 07/15/2017 Right Diagnostic Mammogram, [facility]. 05/25/2020 Bilateral Screening Mammogram, [facility]. 01/21/2023 Bilateral MG screening mammo w CAD, [facility]. Tissue Density: The breasts are heterogeneously dense, which may obscure small masses. Findings: Analyzed By CAD. There is no suspicious group of microcalcifications or new suspicious mass in either breast. Overall Assessment: Negative, BI-RAD 1 Management: Screening Mammogram of both breasts in 1 year. . Patient should continue monthly self-breast exams. A clinical breast exam by your physician is recommended on an annual basis. This exam should not preclude additional follow-up of suspicious palpable abnormalities. Note on Rosalie scores and lifetime risk: 1. A Rosalie score greater than 3% is considered moderate risk. If this is the case, consider specialist referral to assess eligibility for a risk reducing agent. 2. If overall lifetime risk for the development of breast cancer is 20% or higher, the patient may qualify for future screening with alternating mammogram and breast MRI. [facility], , 10/22/2024 8:12 AM. Electronically signed and approved by: Kurtis Graf M.D.
== END | disposition home or self-care (01) ==
LOC: RADMAMWWP 07:24
PROVIDERS: ATTEND Internal Medicine
DX: Z12.31 Encounter for screening mammogram for malignant neoplasm of breast (principal); R92.333 Mammographic heterogeneous density, bilateral breasts; Z78.0 Asymptomatic menopausal state
CPT/HCPCS: 77063; 77067

== ENCOUNTER → 2024-11-03 | Outpatient (CLI) | payer BC, OTHER ==
[2024-11-03 07:50] VITALS: BP 122/77; PULSE 74; RESP 18
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
== END ==
LOC: PNWHC3 07:19
PROVIDERS: ATTEND Specialist
DX: M47.26 Other spondylosis with radiculopathy, lumbar region (principal); Z79.891 Long term (current) use of opiate analgesic; Z88.5 Allergy status to narcotic agent
CPT/HCPCS: 80307; 99212

== ENCOUNTER → 2024-12-29 | Outpatient (CLI) | payer BC, OTHER ==
[2024-12-29 07:44] VITALS: BP 134/82; PULSE 76; RESP 16; TEMP 97.2
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
== END ==
LOC: PNWHC3 07:18
PROVIDERS: ATTEND Specialist
DX: M47.27 Other spondylosis with radiculopathy, lumbosacral region (principal); Z88.5 Allergy status to narcotic agent
CPT/HCPCS: 99211

== ENCOUNTER 2025-01-07 06:01 | Day surgery (SDC) | payer BC, OTHER ==
[2025-01-06 08:54] VITALS: BMI 21.5
[2025-01-07] MEDS: IV FLUID CONTINUATION 1,000 ML IV ONE ×2 (06:22→07:42)
[2025-01-07 06:29] VITALS: TEMP 97
[2025-01-07] MEDS: LACTATED RINGERS 1,000 ML IV SCH (06:42)
[2025-01-07] MEDS ORDERED: fentaNYL (PF) 50 MCG/ML 2 ML AMP ONE (07:07)
[2025-01-07] MEDS ORDERED: ROPIVACAINE 5 MG/ML 30 ML VIAL ONE (07:07)
[2025-01-07] MEDS ORDERED: MIDAZOLAM 2 MG/2 ML VIAL ONE (07:07)
--- NOTE | 2025-01-07 07:42 | P.PCN ---
Description of Procedure: Preprocedure diagnosis. 1. Lumbar spondylosis with facet joint arthropathy without myelopathy. 2. Lumbar degenerative disc disease. Procedure diagnosis. 1. Lumbar spondylosis with facet joint arthropathy without myelopathy. Space 2. Lumbar degenerative disc disease. Procedure. Left radiofrequency thermocoagulation L3, L4 and L5 medial branch, with fluoroscopic guidance (fluoroscopy images are available in the radiology department) (to Denervate the facet joint at bilateral L4- 5 and L5-S1 levels) Anesthesia. Moderate sedation with intravenous Versed 2 mg and fentanyl 100 g and local infiltration with Lidocaine. Continuous pulse OX,BP,EKG and verbal communication was maintained with patient. Time. Start 0707. Stop 0733. EBL minimal. Procedure indication. The patient with low back pain secondary to lumbar facet arthropathy who he had more than 50% relief of her pain with previous diagnostic lumbar medial branch block with local anesthetics.The patient was seen and identified in the preoperative area. Risks: Benefits, complications, including but not limited to risk of infection, bleeding, ALLERGIC reaction to the medications and no complete pain relief and alternatives were discussed with the patient, the patient admitted to proceed with the procedure and signed the consent. Procedure description/technique. Patient was taken to the OR and timeout was completed. The patient was placed in prone position on the procedure table. The lumbar area was prepped and draped in the usual sterile fashion. After injecting 5 ml of 1% Lidocaine subcutaneously,using AP and then oblique, lateral view of fluoroscopy, 18-gauge 100 mm radiofrequency cannula with a 10 mm active tip was advanced and guided by fluoroscopy at the junction of supirior articular process with Left ala of the sacrum, transverse process of L4&L5. Each site then underwent positive sensory testing with 50 Hz and 0-1 V and negative motor testing at 2.5 Hz and 0-3 V with local stimulation but no radicular symptoms down the leg. Thereafter each sites underwent radiofrequency thermocoagulation at 80C for 90 seconds after injecting 1 mL of preservative- free 0.5% ropivacaine. Repeat radiofrequency ablation was done at each points after rotating the needle 180 with same setting. RF needles were taken out. At the end of the procedure the skin was cleansed and Band-Aids were applied. Disposition patient tolerated the procedure well. No complication. She was placed in supine position and transferred to the recovery area in stable condition for observation and was discharged home from recovery room after meeting discharge criteria. Discharge instructions given to the patient by the staff. The patient were examined prior to discharge the patient will schedule a follow-up in the clinic in 2-4 weeks.
[2025-01-07 07:58] VITALS: BP 126/74; PULSE 62; RESP 18
--- NOTE | 2025-01-07 08:56 | FL ---
EXAMINATION TYPE: FL guided pain mgmt statistic DATE OF EXAM: 01/07/2025 FLUOROSCOPY 74 secs fl. [id number] DAP. RAD FREQ LUMBAR. 3 images are submitted. [facility], , 01/07/2025 8:53 AM
== END 2025-01-07 08:14 | disposition home or self-care (01) ==
LOC: ORPAIN 06:01
PROVIDERS: ATTEND Pain Medicine Interventional Pain Medicine
DX: M47.816 Spondylosis without myelopathy or radiculopathy, lumbar region (principal); M51.369 Other intervertebral disc degeneration, lumbar region without mention of lumbar back pain or lower extremity pain; Z88.5 Allergy status to narcotic agent
CPT/HCPCS: 64636 ×2; 64635; J2250; J3010; J2795; 99152; 99153